=== PATIENT | male | born 1940 | race Caucasian/White ===

== ENCOUNTER 2021-02-26 11:45 | Outpatient (CLI) | payer MEDICARE, BC ==
[2021-02-26 15:38] LABS: BASOPHILS % (AUTO) 0.5 %; EOSINOPHILS # (AUTO) 0.1 10^3/uL (0.0-0.7); EOSINOPHILS % (AUTO) 1.8 %; HCT - HEMATOCRIT 29.4 % (42.0-52.0); HGB - HEMOGLOBIN 9.2 g/dL (14.0-18.0); LYMPHOCYTES # (AUTO) 1.2 10^3/uL (1.5-3.5); LYMPHOCYTES % (AUTO) 29.8 %; MEAN CORPUSCULAR HEMOGLOBIN 24.8 pg (27.0-31.0); MEAN CORPUSCULAR HGB CONC 31.3 g/dL (32.0-36.0); MEAN CORPUSCULAR VOLUME 79.2 fL (80.0-94.0); MONOCYTES # (AUTO) 0.4 10^3/uL (0.0-1.0); MONOCYTES % (AUTO) 10.3 %; NEUTROPHILS # (AUTO) 2.3 10^3/uL (1.5-6.6); NEUTROPHILS % (AUTO) 56.8 %; PLT - PLATELET COUNT 159 10^3/uL (130-450); RED BLOOD COUNT 3.71 10^6/uL (4.70-6.10); RED CELL DISTRIBUTION WIDTH 16.1 % (12.0-15.0)
[2021-02-26 15:51] LABS: ALBUMIN/GLOBULIN RATIO 1.1 (1.0-2.2); BILIRUBIN,TOTAL 0.3 mg/dL (0.2-1.0); CALCIUM 9.5 mg/dL (8.5-10.3); CREATININE 1.7 mg/dL (0.6-1.2); MAGNESIUM 1.8 mg/dL (1.7-2.8); POTASSIUM 4.3 mmol/L (3.5-5.0); TOTAL PROTEIN 7.5 g/dL (6.7-8.2)
[2021-02-26 16:06] LABS: THYROID STIMULATING HORMONE 2.46 uIU/mL (0.34-5.60)
== END 2021-02-26 11:46 | disposition home or self-care (01) ==
LOC: LAB.S 11:45
PROVIDERS: ATTEND Physician Assistant Medical
DX: D50.9 Iron deficiency anemia, unspecified (principal); R29.898 Other symptoms and signs involving the musculoskeletal system; R53.83 Other fatigue
CPT/HCPCS: 36415; 80053; 83735; 84443; 85025

== ENCOUNTER 2021-03-02 08:00 | Outpatient (CLI) | payer MEDICARE, BC ==
[2021-03-02 14:53] LABS: BASOPHILS % (AUTO) 0.4 %; EOSINOPHILS # (AUTO) 0.1 10^3/uL (0.0-0.7); EOSINOPHILS % (AUTO) 1.2 %; HCT - HEMATOCRIT 28.5 % (42.0-52.0); LYMPHOCYTES % (AUTO) 19.4 %; MEAN CORPUSCULAR HEMOGLOBIN 24.7 pg (27.0-31.0); MEAN CORPUSCULAR HGB CONC 31.6 g/dL (32.0-36.0); MEAN CORPUSCULAR VOLUME 78.3 fL (80.0-94.0); MEAN PLATELET VOLUME 11.5 fL (7.4-11.4); MONOCYTES # (AUTO) 0.8 10^3/uL (0.0-1.0); MONOCYTES % (AUTO) 15.1 %; NEUTROPHILS # (AUTO) 3.2 10^3/uL (1.5-6.6); NEUTROPHILS % (AUTO) 63.1 %; PLT - PLATELET COUNT 155 10^3/uL (130-450); RED BLOOD COUNT 3.64 10^6/uL (4.70-6.10); WHITE BLOOD COUNT 5.1 x10^3/uL (4.8-10.8)
== END 2021-03-02 23:59 | disposition home or self-care (01) ==
LOC: LAB.S 08:00
PROVIDERS: ATTEND Emergency Medicine
DX: R53.83 Other fatigue (principal); R29.898 Other symptoms and signs involving the musculoskeletal system; D50.9 Iron deficiency anemia, unspecified; Z79.01 Long term (current) use of anticoagulants
CPT/HCPCS: 36415; 85025

== ENCOUNTER 2021-04-05 09:06 | Outpatient (CLI) | payer MEDICARE, BC ==
[2021-04-05 14:45] LABS: BASOPHILS % (AUTO) 0.6 %; EOSINOPHILS # (AUTO) 0.1 10^3/uL (0.0-0.7); EOSINOPHILS % (AUTO) 2.1 %; HCT - HEMATOCRIT 35.3 % (42.0-52.0); HGB - HEMOGLOBIN 10.7 g/dL (14.0-18.0); LYMPHOCYTES # (AUTO) 1.4 10^3/uL (1.5-3.5); LYMPHOCYTES % (AUTO) 26.7 %; MEAN CORPUSCULAR HEMOGLOBIN 24.2 pg (27.0-31.0); MEAN CORPUSCULAR HGB CONC 30.3 g/dL (32.0-36.0); MEAN CORPUSCULAR VOLUME 79.7 fL (80.0-94.0); MONOCYTES # (AUTO) 0.4 10^3/uL (0.0-1.0); MONOCYTES % (AUTO) 7.7 %; NEUTROPHILS # (AUTO) 3.2 10^3/uL (1.5-6.6); NEUTROPHILS % (AUTO) 62.1 %; PLT - PLATELET COUNT 155 10^3/uL (130-450); RED BLOOD COUNT 4.43 10^6/uL (4.70-6.10); RED CELL DISTRIBUTION WIDTH 15.7 % (12.0-15.0); WHITE BLOOD COUNT 5.2 x10^3/uL (4.8-10.8)
[2021-04-05 15:15] LABS: CHOL/HDL RATIO 4.3 (<5.0); CHOLESTEROL 162 mg/dL; HDL CHOLESTEROL 38 mg/dL; LDL CHOLESTEROL,CALCULATED 57 mg/dL; LDL/HDL RATIO 1.5 (<3.6); TRIGLYCERIDES 334 mg/dL; VLDL CHOLESTEROL 67 mg/dL
[2021-04-05 19:54] LABS: ESTIMATED AVERAGE GLUCOSE 169 mg/dL (70-100); HEMOGLOBIN A1c% 7.5 % (4.27-6.07)
== END 2021-04-05 09:07 | disposition home or self-care (01) ==
LOC: LAB.S 09:06
PROVIDERS: ATTEND Internal Medicine
DX: I10 Essential (primary) hypertension (principal); D64.9 Anemia, unspecified; E11.9 Type 2 diabetes mellitus without complications; Z12.5 Encounter for screening for malignant neoplasm of prostate
CPT/HCPCS: 36415; 80061; 82728; 83036; 85025; 86335; G0103; 81599; 83721; 84153

== ENCOUNTER 2021-06-18 12:07 | Outpatient (CLI) | payer MEDICARE, BC | END 2021-06-18 12:08 | disposition short-term general hospital (02) | LOC: EMS 12:07 | DX: S79.912A Unspecified injury of left hip, initial encounter (principal); R53.1 Weakness; W07.XXXA Fall from chair, initial encounter; Y92.009 Unspecified place in unspecified non-institutional (private) residence as the place of occurrence of the external cause | CPT/HCPCS: A0425; A0429 ==

== ENCOUNTER 2021-08-15 09:51 | Outpatient (CLI) | payer MEDICARE, BC | END 2021-08-15 09:52 | disposition EMS.NT | LOC: EMS 09:51 | DX: R44.8 Other symptoms and signs involving general sensations and perceptions (principal) ==

== ENCOUNTER 2021-08-15 17:43 | Outpatient (CLI) | payer MEDICARE, BC | END 2021-08-15 17:44 | disposition EMS.NT | LOC: EMS 17:43 | DX: R50.9 Fever, unspecified (principal); R53.1 Weakness ==

== ENCOUNTER 2021-08-15 18:49 | Emergency (ER) | payer MEDICARE, BC ==
[2021-08-15 19:19] LABS: BILIRUBIN,URINE NEGATIVE (NEGATIVE); GLUCOSE, URINE (UA) NEGATIVE (NEGATIVE); KETONES,URINE (UA) NEGATIVE (NEGATIVE); LEUKOCYTE ESTERASE, URINE NEGATIVE (NEGATIVE); NITRITE,URINE NEGATIVE (NEGATIVE); OCCULT BLOOD,URINE SMALL (NEGATIVE); PROTEIN,URINE 100 mg/dL (NEGATIVE); UROBILINOGEN,URINE 0.2 (NORMAL) E.U./dL (NORMAL)
[2021-08-15 19:23] LABS: CLARITY,URINE CLEAR (CLEAR)
[2021-08-15 19:26] LABS: BACTERIA,URINE Many /HPF (None Seen); SQUAMOUS EPITHELIAL CELL,UR NONE SEEN (<= Few); WBC,URINE >25 /HPF (0-3)
--- NOTE | 2021-08-15 19:33 | ED Physician Documentation ---
History of Present Illness - Stated complaint Stated Complaint: WEAKNESS - Chief complaint Chief Complaint: General - History obtained from History obtained from: Patient - History of Present Illness Timing: Today Pain level max: 8 Pain level now: 3 - Additonal information Additional information: 81-year-old male brought in by his for left leg pain today. EMS was called to the house to help move him. She states that they said he had a fever at that time. He had a left hip surgery about 2 months ago. Apparently there was concern for potential DVT. He states currently he is not having pain. No chest pain or difficulty breathing. No cough. No congestion. Review of Systems Unable to obtain: Dementia Constitutional: reports: Fever Respiratory: denies: Cough GI: denies: Abdominal Pain, Nausea, Vomiting, Diarrhea Skin: denies: Rash Musculoskeletal: denies: Neck pain, Back pain Neurologic: denies: Headache PD PAST MEDICAL HISTORY - Past Medical History Past Medical History: Yes Cardiovascular: Hypertension, High cholesterol, [place], Atrial fibrillation Neuro: Dementia Endocrine/Autoimmune: Type 2 diabetes : Benign prostate hypertrophy Musculoskeletal: Osteoarthritis - Past Surgical History Past Surgical History: Yes Ortho: Hip replacement, Knee replacement - Present Medications Home Medications: Ambulatory Orders Medication Instructions Recorded Confirmed cephALEXin [Keflex] 500 mg PO Q6H #28 cap 08/15/21 - Allergies Allergies/Adverse Reactions: Allergies Allergy/AdvReac Type Severity Reaction Status Date / Time No Known Drug Allergies Allergy Verified 08/15/21 19:01 - Social History Does the pt smoke?: No Smoking Status: Never smoker Does the pt drink ETOH?: No Does the pt have substance abuse?: No - Immunizations Immunizations are current?: Yes PD ED PE NORMAL - Vitals Vital signs reviewed: Yes - General General: No acute distress, Other (Alert, pleasant) - HEENT HEENT: PERRL, Moist mucous membranes - Neck Neck: Supple, no meningeal sign - Cardiac Cardiac: RRR, Strong equal pulses - Respiratory Respiratory: No respiratory distress, Clear bilaterally - Abdomen Abdomen: Soft, Non tender, Non distended - Back Back: No CVA TTP, No spinal TTP - Derm Derm: Warm and dry - Extremities Extremities: No deformity, Normal ROM s pain, No edema, No calf tenderness / cord, Other (Mild swelling of the left lower extremity. No calf tenderness or cord. Full range of motion without pain.) - Neuro Neuro: range mounter 2-12 intact, No motor deficit, No sensory deficit - Psych Psych: Normal mood, Normal affect Results - Vitals Vitals: Vital Signs - 24 hr 08/15/21 08/15/21 08/15/21 18:57 19:01 20:25 Temperature 37.8 C 37.8 C Heart Rate 71 71 72 Respiratory 18 18 23 Rate Blood Pressure 148/63 H 148/63 H 141/68 H O2 Saturation 96 96 98 08/15/21 21:01 Temperature 37.7 C Heart Rate 70 Respiratory 19 Rate Blood Pressure 142/69 H O2 Saturation 98 Oxygen O2 Source Room air - Labs Labs: Laboratory Tests 08/15/21 08/15/21 08/15/21 19:13 19:20 19:20 WBC 11.0 H RBC 3.61 L Hgb 10.1 L Hct 30.6 L MCV 84.8 MCH 28.0 MCHC 33.0 RDW 15.2 H Plt Count 234 MPV 9.9 Neut # (Auto) 8.0 H Lymph # (Auto) 1.4 L [place] # (Auto) 1.3 H Eos # (Auto) 0.0 Baso # (Auto) 0.0 Absolute Nucleated RBC 0.00 Nucleated RBC % 0.0 PT 16.2 H INR 1.5 H APTT 34.0 H Sodium Potassium Chloride Carbon Dioxide Anion Gap BUN Creatinine Estimated GFR (MDRD) Glucose Lactic Acid Calcium Total Bilirubin AST ALT Alkaline Phosphatase Total Protein Albumin Globulin Albumin/Globulin Ratio Lipase Urine Color YELLOW Urine Clarity CLEAR Urine pH 6.0 Ur Specific [place] 1.015 Urine Protein 100 H Urine Glucose (UA) NEGATIVE Urine Ketones NEGATIVE Urine Occult Blood SMALL H Urine Nitrite NEGATIVE Urine Bilirubin NEGATIVE Urine Urobilinogen 0.2 (NORMAL) Ur Leukocyte Esterase NEGATIVE Urine RBC 6-10 H Urine WBC >25 H Ur Squamous Epith Cells NONE SEEN Urine Bacteria Many H Ur Microscopic Review INDICATED Urine Culture Comments INDICATED 08/15/21 08/15/21 19:20 19:25 WBC RBC Hgb Hct MCV MCH MCHC RDW Plt Count MPV Neut # (Auto) Lymph # (Auto) [place] # (Auto) Eos # (Auto) Baso # (Auto) Absolute Nucleated RBC Nucleated RBC % PT INR APTT Sodium 131 L Potassium 3.6 Chloride 93 L Carbon Dioxide 26 Anion Gap 12.0 BUN 35 H Creatinine 1.4 H Estimated GFR (MDRD) 49 L Glucose 126 H Lactic Acid 0.7 Calcium 9.5 Total Bilirubin 0.7 AST 13 ALT 14 Alkaline Phosphatase 113 Total Protein 8.1 Albumin 4.2 Globulin 3.9 Albumin/Globulin Ratio 1.1 Lipase 34 Urine Color Urine Clarity Urine pH Ur Specific [place] Urine Protein Urine Glucose (UA) Urine Ketones Urine Occult Blood Urine Nitrite Urine Bilirubin Urine Urobilinogen Ur Leukocyte Esterase Urine RBC Urine WBC Ur Squamous Epith Cells Urine Bacteria Ur Microscopic Review Urine Culture Comments - Rads (name of study) cxr Radiology: Final report received, EMP read contemporaneously, See rad report (No acute cardiopulmonary abnormality. ) L femur xray Radiology: Final report received, EMP read contemporaneously, See rad report (No acute abnormality) duplex US LLE Radiology: Final report received, EMP read contemporaneously, See rad report (No DVT. Ely's cyst present) PD MEDICAL DECISION MAKING - ED course Complexity details: reviewed results, re-evaluated patient, considered differential, d/w patient, d/w family ED course: 81-year-old male found to have a UTI. Given Rocephin for this. No leg pain here. No DVT on ultrasound. No acute findings on x-ray. No evidence of pneumonia on chest x-ray. We will have him follow-up with his doctor for further care. Patient is ambulating well with a walker here. Family counseled regarding signs and symptoms for which I believe and urgent re-evaluation would be necessary. Family with good understanding of and agreement to plan and is comfortable going home at this time This document was made in part using voice recognition software. While efforts are made to proofread this document, sound alike and grammatical errors may o ccur. Departure - Departure Disposition: 01 Home, Self Care Clinical Impression: UTI (urinary tract infection) Qualifiers: Urinary tract infection type: acute cystitis Hematuria presence: without hematuria Qualified Code(s): N30.00 - Acute cystitis without hematuria Leg pain Qualifiers: Laterality: left Qualified Code(s): M79.605 - Pain in left leg Condition: Good Instructions: ED Acute Pain UKO, ED UTI Cystitis Male Follow-Up: Jonathan Katz MD [Primary Care Provider] - Within 1 week Prescriptions: cephALEXin [Keflex] 500 mg PO Q6H #28 cap Comments: Your prescriptions were sent to [facility]. Please follow-up with your doctor for further care. Return if you worsen. There is no evidence of blood clot on ultrasound tonight. The x-ray does not show any acute abnormalities. Take all antibiotics until gone. Discharge Date/Time: 08/15/21 21:16
[2021-08-15 19:34] LABS: BASOPHILS % (AUTO) 0.3 %; EOSINOPHILS % (AUTO) 0.1 %; HCT - HEMATOCRIT 30.6 % (42.0-52.0); HGB - HEMOGLOBIN 10.1 g/dL (14.0-18.0); LYMPHOCYTES # (AUTO) 1.4 10^3/uL (1.5-3.5); MEAN CORPUSCULAR VOLUME 84.8 fL (80.0-94.0); MEAN PLATELET VOLUME 9.9 fL (7.4-11.4); MONOCYTES # (AUTO) 1.3 10^3/uL (0.0-1.0); MONOCYTES % (AUTO) 12.1 %; NEUTROPHILS % (AUTO) 73.2 %; PLT - PLATELET COUNT 234 10^3/uL (130-450); RED BLOOD COUNT 3.61 10^6/uL (4.70-6.10); RED CELL DISTRIBUTION WIDTH 15.2 % (12.0-15.0)
[2021-08-15 19:39] LABS: INR 1.5 (0.8-1.2); PT - PROTHROMBIN TIME 16.2 secs (9.9-12.6)
[2021-08-15 19:43] LABS: ALBUMIN 4.2 g/dL (3.2-5.5); ALBUMIN/GLOBULIN RATIO 1.1 (1.0-2.2); BILIRUBIN,TOTAL 0.7 mg/dL (0.2-1.0); CALCIUM 9.5 mg/dL (8.5-10.3); CREATININE 1.4 mg/dL (0.6-1.2); POTASSIUM 3.6 mmol/L (3.5-5.0); TOTAL PROTEIN 8.1 g/dL (6.7-8.2)
[2021-08-15] MEDS ORDERED: cefTRIAXone 1 GM VIAL IVP STA (20:13)
--- NOTE | 2021-08-15 20:18 | XRAY Report ---
PROCEDURE: Chest 1 View X-Ray INDICATIONS: fever TECHNIQUE: One view of the chest was acquired. COMPARISON: None. FINDINGS: Surgical changes and devices: None. Lungs and pleura: No pleural effusions or pneumothorax. Lungs are clear. Mediastinum: Mediastinal contours appear normal. Heart size is within normal limits. Bones and chest wall: No suspicious bony lesions. Generative change at the shoulders. Overlying sof t tissues appear unremarkable. IMPRESSION: No acute cardiopulmonary abnormality. Reviewed by: Jaison Munoz MD on 08/15/2021 8:17 PM PST Approved by: Jaison Munoz MD on 08/15/2021 8:17 PM PST Station ID: [id number]
--- NOTE | 2021-08-15 20:21 | XRAY Report ---
PROCEDURE: Femur 2V LT INDICATIONS: L Leg pain, 2 months s/p "hip surgery" TECHNIQUE: 4 views of the femur were acquired. COMPARISON: None. FINDINGS: Bones: Left femur intramedullary nia and screw fixation. No acute fractures. No periscrew lucency de monstrated. No dislocation. Mild left hip joint space narrowing. Moderate heterotopic calcification. Mild deformity of the lower one third of the femoral shaft. Degenerative change at the left knee join t. No suspicious bony lesions. Soft tissues: No suspicious soft tissue calcifications or masses. IMPRESSION: No acute osseous abnormality. Expected appearance of the left hip hardware. Reviewed by: Jaison Munoz MD on 08/15/2021 8:19 PM PST Approved by: Jaison Munoz MD on 08/15/2021 8:19 PM PST Station ID: [id number]
[2021-08-15 21:03] VITALS: BP 142/69
--- NOTE | 2021-08-15 21:47 | Ultrasound Report ---
PROCEDURE: Duplex Ext Veins Left INDICATIONS: L Leg pain, 2 months s/p "hip surgery" TECHNIQUE: Real-time imaging, as well as color and pulse Doppler interrogation, were performed of the lower extr emity deep veins from the inguinal ligament to the popliteal fossa. COMPARISON: None. FINDINGS: The deep veins are normally compressible, and free of intraluminal thrombus. Color and pu lse Doppler demonstrate normal phasic intraluminal flow. There is normal augmentation response to di stal compression maneuver. The calf veins are not well visualized. A medial popliteal/Ely's cyst is seen measuring 4.8 x 2.2 x 2.4 cm with internal debris or synovial thickening. IMPRESSION: 1.No sonographic evidence of deep venous thrombosis in the left lower extremity. 2.Medial popliteal Ely's cyst with internal debris or synovial hypertrophy. Reviewed by: Oliver Sarabia MD on 08/15/2021 9:46 PM PST Approved by: Oliver Sarabia MD on 08/15/2021 9:46 PM PST Station ID: [id number]
== END 2021-08-15 21:16 | disposition home or self-care (01) ==
LOC: ED 18:49
DX: N30.00 Acute cystitis without hematuria (principal); M79.605 Pain in left leg; M71.22 Synovial cyst of popliteal space [Baker], left knee; Z96.642 Presence of left artificial hip joint; I10 Essential (primary) hypertension; E11.9 Type 2 diabetes mellitus without complications
CPT/HCPCS: 36415; 80053; 81001; 81003; 83605; 83690; 85025; 85610; 85730; 87040; 87086; 87181; 96374; 99283

== ENCOUNTER 2021-10-11 12:55 | Outpatient (CLI) | payer MEDICARE, BC ==
[2021-10-11 20:07] LABS: BASOPHILS % (AUTO) 0.4 %; EOSINOPHILS # (AUTO) 0.1 10^3/uL (0.0-0.7); EOSINOPHILS % (AUTO) 1.3 %; HGB - HEMOGLOBIN 11.1 g/dL (14.0-18.0); LYMPHOCYTES % (AUTO) 35.7 %; MEAN CORPUSCULAR HEMOGLOBIN 27.8 pg (27.0-31.0); MEAN CORPUSCULAR HGB CONC 32.6 g/dL (32.0-36.0); MEAN CORPUSCULAR VOLUME 85.2 fL (80.0-94.0); MEAN PLATELET VOLUME 11.4 fL (7.4-11.4); MONOCYTES # (AUTO) 0.6 10^3/uL (0.0-1.0); MONOCYTES % (AUTO) 10.5 %; NEUTROPHILS # (AUTO) 2.8 10^3/uL (1.5-6.6); NEUTROPHILS % (AUTO) 50.8 %; PLT - PLATELET COUNT 177 10^3/uL (130-450); RED BLOOD COUNT 3.99 10^6/uL (4.70-6.10); RED CELL DISTRIBUTION WIDTH 14.3 % (12.0-15.0); WHITE BLOOD COUNT 5.6 x10^3/uL (4.8-10.8)
[2021-10-11 20:16] LABS: ALBUMIN 4.2 g/dL (3.2-5.5); ALBUMIN/GLOBULIN RATIO 1.1 (1.0-2.2); BILIRUBIN,TOTAL 0.6 mg/dL (0.2-1.0); CALCIUM 9.6 mg/dL (8.5-10.3); CREATININE 1.2 mg/dL (0.6-1.2); POTASSIUM 3.7 mmol/L (3.5-5.0)
[2021-10-11 20:42] LABS: ESTIMATED AVERAGE GLUCOSE 146 mg/dL (70-100); HEMOGLOBIN A1c% 6.7 % (4.27-6.07)
== END 2021-10-11 12:56 | disposition home or self-care (01) ==
LOC: LAB.S 12:55
PROVIDERS: ATTEND Internal Medicine
DX: E11.9 Type 2 diabetes mellitus without complications (principal); D64.9 Anemia, unspecified
CPT/HCPCS: 36415; 80053; 82728; 83036; 85025

== ENCOUNTER 2022-04-03 08:00 | Outpatient (CLI) | payer MEDICARE, BC ==
[2022-04-03 19:44] LABS: BILIRUBIN,URINE NEGATIVE (NEGATIVE); GLUCOSE, URINE (UA) NEGATIVE (NEGATIVE); KETONES,URINE (UA) NEGATIVE (NEGATIVE); LEUKOCYTE ESTERASE, URINE NEGATIVE (NEGATIVE); NITRITE,URINE NEGATIVE (NEGATIVE); OCCULT BLOOD,URINE TRACE-INTA (NEGATIVE); PH,URINE 5.5 PH (5.0-7.5); PROTEIN,URINE 100 mg/dL (NEGATIVE); UROBILINOGEN,URINE 0.2 (NORMAL) E.U./dL (NORMAL)
[2022-04-03 19:45] LABS: CLARITY,URINE CLEAR (CLEAR)
[2022-04-03 20:03] LABS: BACTERIA,URINE Few /HPF (None Seen); RBC,URINE 0-5 /HPF (0-5); SQUAMOUS EPITHELIAL CELL,UR RARE Squamous (<= Few); WBC,URINE 0-3 /HPF (0-3)
[2022-04-03 20:04] LABS: CASTS, URINE 3-5 Hyaline Casts /LPF
== END 2022-04-03 23:59 | disposition home or self-care (01) ==
LOC: LAB.R 08:00
PROVIDERS: ATTEND Internal Medicine
DX: R39.9 Unspecified symptoms and signs involving the genitourinary system (principal)
CPT/HCPCS: 81001; 87086

== ENCOUNTER 2022-06-05 20:48 | Emergency (ER) | payer MEDICARE, BC ==
--- NOTE | 2022-06-05 21:18 | ED Physician Documentation ---
History of Present Illness - Stated complaint Stated Complaint: DIABETIC ISSUE - Chief complaint Chief Complaint: General - History obtained from History obtained from: Patient - History of Present Illness Timing: How many days ago (2-3) Pain level max: 0 Pain level now: 0 Improved by: nothing - Additonal information Additional information: patient is non-insulin dependent diabetic, takes glipizide for diabetes. Checks blood sugars frequently but lately has not been doing so on a regular basis. He says the last 2-3 days he has noted elevated blood sugars 200s-300s and tonight it was 450. He also notes mild diarrhea x 2 days but otherwise feels well. No recent changes in diet nor medications. Review of Systems Constitutional: reports: Reviewed and negative Cardiac: reports: Reviewed and negative Respiratory: reports: Reviewed and negative GI: reports: Diarrhea. denies: Abdominal Pain, Nausea, Vomiting : denies: Dysuria, Frequency Neurologic: denies: Generalized weakness, Focal weakness, Numbness, Headache PD PAST MEDICAL HISTORY - Past Medical History Cardiovascular: Hypertension, High cholesterol, [place], Atrial fibrillation Neuro: Dementia Endocrine/Autoimmune: Type 2 diabetes : Benign prostate hypertrophy Musculoskeletal: Osteoarthritis - Past Surgical History Past Surgical History: Yes Ortho: Hip replacement, Knee replacement - Present Medications Home Medications: Ambulatory Orders Medication Instructions Recorded Confirmed cephALEXin [Keflex] 500 mg PO Q6H #28 cap 08/15/21 Apixaban [Eliquis] 5 mg PO BID 06/05/22 06/05/22 Atorvastatin Calcium 40 mg PO DAILY 06/05/22 06/05/22 Finasteride [Proscar] 5 mg PO DAILY 06/05/22 06/05/22 Isosorbide Mononitrate [Isosorbide 60 mg PO DAILY 06/05/22 06/05/22 Mononitrate ER] Losartan Potassium [Cozaar] 100 mg PO DAILY 06/05/22 06/05/22 Metoprolol Succinate [Toprol Xl] 200 mg PO DAILY 06/05/22 06/05/22 Tamsulosin [Flomax] 0.4 mg PO DAILY 06/05/22 06/05/22 glipiZIDE [Glipizide ER] 2.5 mg PO DAILY 06/05/22 06/05/22 hydroCHLOROthiazide [Hydrodiuril] 25 mg PO DAILY 06/05/22 06/05/22 - Allergies Allergies/Adverse Reactions: Allergies Allergy/AdvReac Type Severity Reaction Status Date / Time No Known Drug Allergies Allergy Verified 06/05/22 21:07 - Social History Does the pt smoke?: No Smoking Status: Never smoker Does the pt drink ETOH?: No Does the pt have substance abuse?: No - Immunizations Immunizations are current?: Yes PD ED PE NORMAL - Vitals Vital signs reviewed: Yes - General General: Alert and oriented X 3, No acute distress, Well developed/nourished - HEENT HEENT: Moist mucous membranes - Cardiac Cardiac: RRR, No murmur - Respiratory Respiratory: No respiratory distress, Clear bilaterally - Abdomen Abdomen: Normal bowel sounds, Soft, Non tender - Derm Derm: Normal color, Warm and dry Results - Vitals Vitals: Oxygen O2 Source Room air - Labs Labs: Laboratory Tests 06/05/22 06/05/22 06/05/22 21:05 21:43 21:48 WBC 8.5 RBC 3.38 L Hgb 9.3 L Hct 28.3 L MCV 83.7 MCH 27.5 MCHC 32.9 RDW 17.9 H Plt Count 141 MPV 10.6 Neut # (Auto) Not Reportable Lymph # (Auto) Not Reportable [place] # (Auto) Not Reportable Eos # (Auto) Not Reportable Baso # (Auto) Not Reportable Absolute Nucleated RBC Not Reportable Total Counted 100 Band Neuts % (Manual) 3 Abnorm Lymph % (Manual) 0 Metamyelocytes % 5 H Myelocytes % 2 H Nucleated RBC % Not Reportable Neutrophils # (Manual) 6.1 Lymphocytes # (Manual) 0.7 L Monocytes # (Manual) 1.0 Eosinophils # (Manual) 0.1 Basophils # (Manual) 0.0 Differential Comment MANUAL DIFFERENTIAL WBC Morphology NORMAL APPEARANCE Platelet Estimate NORMAL (130-450,000) Platelet Morphology NORMAL APPEARANCE RBC Morph Micro Appear NORMAL APPEARANCE VBG pH VBG pCO2 VBG pO2 VBG HCO3 VBG Total CO2 VBG O2 Saturation VBG Base Excess Sodium Potassium Chloride Carbon Dioxide Anion Gap BUN Creatinine Estimated GFR (MDRD) Glucose POC Whole Bld Glucose 455 H Estimat Average Glucose Hemoglobin A1c % Calcium Total Bilirubin AST ALT Alkaline Phosphatase Total Protein Albumin Globulin Albumin/Globulin Ratio Lipase Urine Color YELLOW Urine Clarity CLEAR Urine pH 5.5 Ur Specific [place] 1.015 Urine Protein 30 H Urine Glucose (UA) >=1000 H Urine Ketones NEGATIVE Urine Occult Blood TRACE-INTA Urine Nitrite NEGATIVE Urine Bilirubin NEGATIVE Urine Urobilinogen 0.2 (NORMAL) Ur Leukocyte Esterase NEGATIVE Urine RBC None Seen Urine WBC 0-3 Ur Squamous Epith Cells RARE Squamous Urine Bacteria None Seen Ur Microscopic Review INDICATED Urine Culture Comments NOT INDICATED Serum Ketones 06/05/22 06/05/22 06/05/22 21:48 21:48 21:48 WBC RBC Hgb Hct MCV MCH MCHC RDW Plt Count MPV Neut # (Auto) Lymph # (Auto) [place] # (Auto) Eos # (Auto) Baso # (Auto) Absolute Nucleated RBC Total Counted Band Neuts % (Manual) Abnorm Lymph % (Manual) Metamyelocytes % Myelocytes % Nucleated RBC % Neutrophils # (Manual) Lymphocytes # (Manual) Monocytes # (Manual) Eosinophils # (Manual) Basophils # (Manual) Differential Comment WBC Morphology Platelet Estimate Platelet Morphology RBC Morph Micro Appear VBG pH 7.341 VBG pCO2 43.4 VBG pO2 49.2 H VBG HCO3 22.9 L VBG Total CO2 24.3 VBG O2 Saturation 84.1 H VBG Base Excess -2.7 L Sodium 128 L Potassium 4.1 Chloride 96 L Carbon Dioxide 23 Anion Gap 9.0 BUN 38 H Creatinine 1.3 H Estimated GFR (MDRD) 53 L Glucose 416 H POC Whole Bld Glucose Estimat Average Glucose 226 H Hemoglobin A1c % 9.5 H Calcium 9.3 Total Bilirubin 0.6 AST 20 ALT 31 Alkaline Phosphatase 79 Total Protein 6.9 Albumin 3.7 Globulin 3.2 Albumin/Globulin Ratio 1.2 Lipase 57 H Urine Color Urine Clarity Urine pH Ur Specific [place] Urine Protein Urine Glucose (UA) Urine Ketones Urine Occult Blood Urine Nitrite Urine Bilirubin Urine Urobilinogen Ur Leukocyte Esterase Urine RBC Urine WBC Ur Squamous Epith Cells Urine Bacteria Ur Microscopic Review Urine Culture Comments Serum Ketones NEGATIVE 06/05/22 23:23 WBC RBC Hgb Hct MCV MCH MCHC RDW Plt Count MPV Neut # (Auto) Lymph # (Auto) [place] # (Auto) Eos # (Auto) Baso # (Auto) Absolute Nucleated RBC Total Counted Band Neuts % (Manual) Abnorm Lymph % (Manual) Metamyelocytes % Myelocytes % Nucleated RBC % Neutrophils # (Manual) Lymphocytes # (Manual) Monocytes # (Manual) Eosinophils # (Manual) Basophils # (Manual) Differential Comment WBC Morphology Platelet Estimate Platelet Morphology RBC Morph Micro Appear VBG pH VBG pCO2 VBG pO2 VBG HCO3 VBG Total CO2 VBG O2 Saturation VBG Base Excess Sodium Potassium Chloride Carbon Dioxide Anion Gap BUN Creatinine Estimated GFR (MDRD) Glucose POC Whole Bld Glucose 234 H Estimat Average Glucose Hemoglobin A1c % Calcium Total Bilirubin AST ALT Alkaline Phosphatase Total Protein Albumin Globulin Albumin/Globulin Ratio Lipase Urine Color Urine Clarity Urine pH Ur Specific [place] Urine Protein Urine Glucose (UA) Urine Ketones Urine Occult Blood Urine Nitrite Urine Bilirubin Urine Urobilinogen Ur Leukocyte Esterase Urine RBC Urine WBC Ur Squamous Epith Cells Urine Bacteria Ur Microscopic Review Urine Culture Comments Serum Ketones PD MEDICAL DECISION MAKING - ED course Complexity details: reviewed results, re-evaluated patient, considered differential, d/w patient, d/w family ED course: Serum glucose 416 on initial draw, down to 234 after one liter IV NS and 6 units regular insulin IV. Serum ketones negative. Incidental note of mild anemia (9.3 hemoglobin) comparable to previous results. No further treatment at this time, given that he is asymptomatic relative to the hyperglycemia. Hgb A1C ordered at time of discharge , can be reviewed by PMD in follow up. Return precautions discussed Departure - Departure Disposition: Home, Self Care Clinical Impression: Hyperglycemia Condition: Good Instructions: Diabetes Type 2 Coping, Diabetes Healthy Meals, Diabetes Carbs, Diabetes Eating Out, ED Hyperglycemia Diabetic Follow-Up: Mariely Feliciano MD [Primary Care Provider] - Comments: Follow up with your primary care provider for reevaluation, ideally within the next week. If your blood sugars are not controlled with your current medication, adjustments can be made by your provider. I have ordered a test called hemoglobin A1c, which can help determine if adjustments are needed in the regimen for blood sugar control. This result is pending at time of discharge; your doctor can get the result when you follow up with them. You had mild abnormalities as discussed, such as mildly low red blood cell levels and mildly elevated kidney function tests; these are not new findings compared to previous results I have on our records. Discharge Date/Time: 06/06/22 00:23
[2022-06-05] MEDS ORDERED: SODIUM CHLORIDE 0.9% 1,000 ML IV STA (21:19)
[2022-06-05 22:05] LABS: BASOPHILS % (AUTO) 0.4 %; EOSINOPHILS % (AUTO) 0.1 %; HCT - HEMATOCRIT 28.3 % (42.0-52.0); HGB - HEMOGLOBIN 9.3 g/dL (14.0-18.0); MEAN CORPUSCULAR HEMOGLOBIN 27.5 pg (27.0-31.0); MEAN CORPUSCULAR HGB CONC 32.9 g/dL (32.0-36.0); MEAN CORPUSCULAR VOLUME 83.7 fL (80.0-94.0); MEAN PLATELET VOLUME 10.6 fL (7.4-11.4); MONOCYTES % (AUTO) 12.2 %; NEUTROPHILS % (AUTO) 68.4 %; PLT - PLATELET COUNT 141 10^3/uL (130-450); RED BLOOD COUNT 3.38 10^6/uL (4.70-6.10); RED CELL DISTRIBUTION WIDTH 17.9 % (12.0-15.0); WHITE BLOOD COUNT 8.5 x10^3/uL (4.8-10.8)
[2022-06-05 22:06] LABS: BILIRUBIN,URINE NEGATIVE (NEGATIVE); GLUCOSE, URINE (UA) >=1000 mg/dL (NEGATIVE); KETONES,URINE (UA) NEGATIVE (NEGATIVE); LEUKOCYTE ESTERASE, URINE NEGATIVE (NEGATIVE); NITRITE,URINE NEGATIVE (NEGATIVE); OCCULT BLOOD,URINE TRACE-INTA (NEGATIVE); PH,URINE 5.5 PH (5.0-7.5); PROTEIN,URINE 30 mg/dL (NEGATIVE); UROBILINOGEN,URINE 0.2 (NORMAL) E.U./dL (NORMAL)
[2022-06-05 22:07] LABS: ABNORMAL LYMPHS % (MANUAL) 0 %
[2022-06-05 22:07] LABS: CLARITY,URINE CLEAR (CLEAR)
[2022-06-05 22:11] LABS: VBG PCO2 43.4 mmHg (41-51); VBG PH 7.341 (7.31-7.41)
[2022-06-05 22:12] LABS: VBG BASE EXCESS -2.7 mmol/L (-2 - +2); VBG HCO3 22.9 mmol/L (23-28); VBG OXYGEN SATURATION 84.1 % (60-80); VBG PO2 49.2 mmHg (25-47); VBG TOTAL CO2 24.3 mmol/L (24-29)
[2022-06-05 22:13] LABS: KETONES, SERUM (ACETEST) NEGATIVE (NEGATIVE)
[2022-06-05 22:18] LABS: BACTERIA,URINE None Seen /HPF (None Seen); RBC,URINE None Seen /HPF (0-5); SQUAMOUS EPITHELIAL CELL,UR RARE Squamous (<= Few); WBC,URINE 0-3 /HPF (0-3)
[2022-06-05 22:20] LABS: ALBUMIN 3.7 g/dL (3.2-5.5); ALBUMIN/GLOBULIN RATIO 1.2 (1.0-2.2); ALKALINE PHOSPHATASE 79 IU/L (42-121); ALT ALANINE AMINOTRANSFERASE 31 IU/L (10-60); AST ASPARTATE AMINOTRANSFERASE 20 IU/L (10-42); BILIRUBIN,TOTAL 0.6 mg/dL (0.2-1.0); CALCIUM 9.3 mg/dL (8.5-10.3); CARBON DIOXIDE - CO2 23 mmol/L (21-32); CHLORIDE 96 mmol/L (101-111); CREATININE 1.3 mg/dL (0.6-1.2); GFR - MDRD 53 (>89); GLUCOSE 416 mg/dL (70-100); LIPASE 57 U/L (22-51); POTASSIUM 4.1 mmol/L (3.5-5.0); SODIUM 128 mmol/L (135-145); TOTAL PROTEIN 6.9 g/dL (6.7-8.2)
[2022-06-05 22:27] LABS: BUN - BLOOD UREA NITROGEN 38 mg/dL (6-20)
[2022-06-05] MEDS ORDERED: INSULIN REGULAR HUMAN 100 UNIT/1 ML 10 ML MDV IVP STA (22:28)
[2022-06-05 22:32] LABS: BAND NEUTROPHILS % (MANUAL) 3 %; DIFFERENTIAL COMMENT MANUAL DIFFERENTIAL; EOSINOPHILS # (MANUAL) 0.1 10^3/uL (0-0.7); LYMPHOCYTES # (MANUAL) 0.7 10^3/uL (1.5-3.5); LYMPHOCYTES % (MANUAL) 8 %; METAMYELOCYTES % (MANUAL) 5 %; MYELOCYTES % (MANUAL) 2 %; NEUTROPHILS # (MANUAL) 6.1 10^3/uL (1.5-6.6); PLATELET ESTIMATE, MANUAL NORMAL (130-450,000) (NORMAL); PLATELET MORPHOLOGY NORMAL APPEARANCE (NORMAL); RBC MORPHOLOGY (MULTIPLE) NORMAL APPEARANCE (NORMAL); WBC MORPHOLOGY (MULTIPLE) NORMAL APPEARANCE (NORMAL)
[2022-06-06 00:23] VITALS: BP 133/72
[2022-06-06 16:34] LABS: ESTIMATED AVERAGE GLUCOSE 226 mg/dL (70-100); HEMOGLOBIN A1c% 9.5 % (4.27-6.07)
== END 2022-06-06 00:23 | disposition home or self-care (01) ==
LOC: ED 20:48
DX: E11.65 Type 2 diabetes mellitus with hyperglycemia (principal); Z79.4 Long term (current) use of insulin; I10 Essential (primary) hypertension; I48.91 Unspecified atrial fibrillation; Z79.01 Long term (current) use of anticoagulants
CPT/HCPCS: 36415; 80053; 81001; 82009; 82803; 83036; 83690; 85025; 96360; 99283; 99284; J1815; 81003; 87086

== ENCOUNTER 2022-08-07 08:00 | Outpatient (CLI) | payer MEDICARE, BC ==
[2022-08-07 16:30] LABS: CALCIUM 9.7 mg/dL (8.5-10.3); CREATININE 1.4 mg/dL (0.6-1.2); POTASSIUM 3.7 mmol/L (3.5-5.0)
[2022-08-07 20:59] LABS: ESTIMATED AVERAGE GLUCOSE 189 mg/dL (70-100); HEMOGLOBIN A1c% 8.2 % (4.27-6.07)
== END 2022-08-07 23:59 | disposition home or self-care (01) ==
LOC: LAB.R 08:00
PROVIDERS: ATTEND Internal Medicine
DX: E11.9 Type 2 diabetes mellitus without complications (principal); H91.90 Unspecified hearing loss, unspecified ear; R32 Unspecified urinary incontinence
CPT/HCPCS: 80048; 83036

== ENCOUNTER 2022-10-11 08:08 | Outpatient (CLI) | payer MEDICARE, BC ==
[2022-10-11 15:36] LABS: ESTIMATED AVERAGE GLUCOSE 163 mg/dL (70-100); HEMOGLOBIN A1c% 7.3 % (4.27-6.07)
[2022-10-11 16:17] LABS: CREATININE,URINE 91.2 mg/dL; MICROALBUM/CREATININE RATIO,UR 267.5 ug/mg (<30.0); MICROALBUMIN,URINE 24.4 mg/dL (0-300.0)
[2022-10-11 16:20] LABS: BUN - BLOOD UREA NITROGEN 42 mg/dL (6-20); CARBON DIOXIDE - CO2 29 mmol/L (21-32); CHLORIDE 104 mmol/L (101-111); CHOL/HDL RATIO 4.5 (<5.0); CHOLESTEROL 172 mg/dL; CREATININE 1.4 mg/dL (0.6-1.2); GFR - MDRD 48 (>89); GLUCOSE 132 mg/dL (70-100); HDL CHOLESTEROL 38 mg/dL; LDL CHOLESTEROL,CALCULATED 95 mg/dL; LDL/HDL RATIO 2.5 (<3.6); SODIUM 140 mmol/L (135-145); TRIGLYCERIDES 196 mg/dL; VLDL CHOLESTEROL 39 mg/dL
== END 2022-10-11 08:09 | disposition home or self-care (01) ==
LOC: LAB.S 08:08
PROVIDERS: ATTEND Nurse Practitioner
DX: E11.65 Type 2 diabetes mellitus with hyperglycemia (principal); E78.2 Mixed hyperlipidemia
CPT/HCPCS: 36415; 80048; 80061; 82043; 82570; 83036; 83721

== ENCOUNTER 2022-10-12 11:03 | Outpatient (CLI) | payer MEDICARE, BC ==
--- NOTE | 2022-10-12 12:09 | XRAY Report ---
PROCEDURE: Femur 2V LT INDICATIONS: LEFT THIGH PAIN TECHNIQUE: 4 views of the femur were acquired. COMPARISON: 08/15/2021. FINDINGS: Bones: Post-ORIF changes are noted in left proximal femur and femoral neck. There is a healed intertr ochanteric fracture of left proximal femur. Healed distal femoral shaft oblique fracture is also seen . No acute fracture or dislocation. No gross hardware loosening or failure. Moderate left hip joint o steoarthritic changes are seen. No evidence of avascular necrosis of femoral head. Moderate tricompar tmental osteoarthritis in left knee is also noted. Soft tissues: No suspicious soft tissue calcifications or masses. IMPRESSION: 1. Prior ORIF of left proximal femoral shaft. Healed left intertrochanteric and distal femoral shaft fractures with chronic-appearing deformity. No acute fracture or dislocation. No gross hardware loose anthony or failure. 2. Moderate to severe left hip and left knee joint osteoarthritis. No evidence of avascular necrosis. Reviewed by: Luis Manuel Zhang MD on 10/12/2022 12:08 PM PST Approved by: Luis Manuel Zhang MD on 10/12/2022 12:08 PM PST Station ID: [id number]
== END 2022-10-12 11:04 | disposition home or self-care (01) ==
LOC: DI.S 11:03
PROVIDERS: ATTEND Physician Assistant
DX: M17.12 Unilateral primary osteoarthritis, left knee (principal); M16.12 Unilateral primary osteoarthritis, left hip

== ENCOUNTER 2022-10-17 11:39 | Outpatient (CLI) | payer MEDICARE, BC ==
[2022-10-17] MEDS ORDERED: iohexoL-300 100 ML VIAL ONE (12:07)
[2022-10-17 12:18] LABS: CREATININE 1.3 mg/dL (0.6-1.2)
[2022-10-17] MEDS ORDERED: iohexoL-300 100 ML VIAL IVP ONE (12:39)
--- NOTE | 2022-10-18 10:25 | CT Report ---
PROCEDURE: IVP INDICATIONS: HEMTURIA CONTRAST: 140ml Omnipaque TECHNIQUE: After the administration of intravenous contrast, 5 mm thick sections acquired from the diaphragms to the symphysis. 5 mm thick coronal and sagittal reformats were acquired. For radiation dose reducti on, the following was used: automated exposure control, adjustment of mA and/or kV according to jin ent size. COMPARISON: None. FINDINGS: Image quality: Excellent. Lung bases: There is a 6 mm nodule in the right lower lobe. Heart size is normal. Moderate-12 and la rge sized hernia. Urinary system: Both kidneys are normal in size and enhancement. Calcific densities in the renal hil a bilaterally are compatible with vascular calcification. No renal stones or hydronephrosis. Contrast -filled renal calyces are normal in morphology. Small low-density cortical nodules are present, like ly cysts. Contrast filled portions of both ureters are normal in caliber. Bladder wall thickness is normal. Solid organs: Liver and spleen are normal in size and enhancement. Gallbladder contains a large joseph cified gallstone. Biliary system is non dilated. Pancreas enhances normally. No adrenal nodules. Peritoneum and bowel: Bowel loops demonstrate normal wall thickness and caliber. There are numerous colonic diverticula. No acute diverticulitis. No free fluid or air. Nodes and vessels: No retroperitoneal or mesenteric adenopathy by size criteria. Aorta and inferior vena cava are normal in size. Moderate atherosclerosis. Abdominal wall: There is a small fat-containing umbilical hernia. Pelvis: No pathologic free pelvic fluid. No inguinal adenopathy. Small fat-containing inguinal her nias are noted. Bones: There is is cortication in the left effusion (series 4 image 85). No vertebral body compressi on fractures. Left hip fracture with internal fixation IMPRESSION: 1. A cause for hematuria is not definitively identified on CT. 2. No renal stone or hydronephrosis. 3. Small low-density cortical nodules are present bilaterally, most likely renal cysts. No solid celestine l masses. 4. Cholelithiasis. 5. Diverticulosis without diverticulitis. 6. A 6 mm nodule in the right lower lobe. Please see enclosed follow-up recommendation. 7. A sclerotic lesion in the left ischium. If there is clinical suspicion for neoplasm such as metast atic disease, a whole-body bone scan is recommended for follow-up. Fleischner Society criteria for SOLID lung nodule followup. Nodule size (mm)Low-risk patientHigh-risk patient "d4No follow-up neededFollow-up at 12 mo; if no change, no further follow-up >[id number] CT at 12 mo; if no change, no further follow-up needed.Initial follow-up CT at 6-12 mo, then 18-24 mo if no change. >6-8Initial follow-up CT at 6-12 mo, then 18-24 mo if no change. Initial follow-up CT at 3-6 mo, then 9-12 mo and 24 mo if no change. >8Follow-up CT at 3, 9, 24 mo. Or PET and/or biopsy.Same as for low-risk pts. Reviewed by: Elizabeth Farnsworth MD on 10/18/2022 9:24 AM [facility] Approved by: Elizabeth Farnsworth MD on 10/18/2022 9:24 AM [facility] Station ID: [id number]
== END 2022-10-17 11:40 | disposition home or self-care (01) ==
LOC: LAB 11:39
PROVIDERS: ATTEND Urology
DX: R31.29 Other microscopic hematuria (principal); K80.20 Calculus of gallbladder without cholecystitis without obstruction; K57.30 Diverticulosis of large intestine without perforation or abscess without bleeding; R91.1 Solitary pulmonary nodule; R93.7 Abnormal findings on diagnostic imaging of other parts of musculoskeletal system
CPT/HCPCS: 36415; 74178; 82565; 84520; Q9967

== ENCOUNTER 2022-12-13 19:36 | Outpatient (CLI) | payer MEDICARE, BC | END 2022-12-13 23:59 | disposition EMS.NT | LOC: EMS 19:36 | DX: M25.512 Pain in left shoulder (principal); W01.0XXA Fall on same level from slipping, tripping and stumbling without subsequent striking against object, initial encounter; Y92.009 Unspecified place in unspecified non-institutional (private) residence as the place of occurrence of the external cause ==

== ENCOUNTER 2023-01-02 15:55 | Outpatient (CLI) | payer MEDICARE, BC ==
--- NOTE | 2023-01-03 07:08 | CT Report ---
PROCEDURE: HEAD WO INDICATIONS: MEMORY LOSS,PORT CONCUSSION SYNDROME,FALL TECHNIQUE: Noncontrast 4.5 mm thick angled axial sections acquired from the foramen magnum to the vertex. For r adiation dose reduction, the following was used: automated exposure control, adjustment of mA and/or kV according to patient size. COMPARISON: None. FINDINGS: Image quality: Excellent. CSF spaces: Basal cisterns are patent. No extra-axial fluid collections. Ventricles are normal in size and shape. Brain: No midline shift. No intracranial masses or hemorrhage. Ward-white matter interface is norm al. Age-related volume loss and severe small vessel ischemic change. Skull and face: Calvarium and visualized facial bones are intact, without suspicious lesions. Sinuses: Visualized sinuses and mastoids are clear. IMPRESSION: Age-related volume loss and severe small vessel ischemic change. No evidence acute intracranial patho logy. Reviewed by: Derian Holliday MD on 01/02/2023 4:32 PM PDT Approved by: Derian Holliday MD on 01/02/2023 4:32 PM PDT Station ID: [id number]
== END 2023-01-02 15:56 | disposition home or self-care (01) ==
LOC: DI 15:55
PROVIDERS: ATTEND Internal Medicine
DX: R41.3 Other amnesia (principal); F07.81 Postconcussional syndrome; R29.6 Repeated falls; G31.89 Other specified degenerative diseases of nervous system; I67.82 Cerebral ischemia

== ENCOUNTER 2023-01-15 09:45 | Outpatient (CLI) | payer MEDICARE, BC ==
--- NOTE | 2023-01-15 10:52 | XRAY Report ---
PROCEDURE: Lumbar Spine 2 View INDICATIONS: STRAIN OF LOWER BACK TECHNIQUE: 3 views of the lumbar spine were acquired. COMPARISON: None. FINDINGS: Bones: 5 [id number] vertebrae are present. There is normal bony alignment. No vertebral body compression fractures. No suspicious bony lesions. Mild disc height loss at all levels. Multilevel marginal osteitis. Soft tissues: Overlying bowel gas pattern is normal. Large gallstone measuring at least 2.8 cm. IMPRESSION: Multilevel, mild degenerative disc disease. Cholelithiasis. Reviewed by: Benito Lew on 01/15/2023 10:51 AM PDT Approved by: Benito Lew on 01/15/2023 10:51 AM PDT Station ID: [id number]
--- NOTE | 2023-01-15 11:01 | XRAY Report ---
PROCEDURE: Hip w/Pelvis 2-3V LT INDICATIONS: STRAIN OF LOWER BACK TECHNIQUE: AP pelvis with lateral view(s) of the 3 hip(s). COMPARISON: None. FINDINGS: Bones: Intramedullary nia and intertrochanteric screw fixation of the left femur. The intertrochante desean fracture alignment is anatomic, with sclerosis. Soft tissues: No suspicious soft tissue calcifications or masses. IMPRESSION: Left hip ORIF, with anatomic alignment. Reviewed by: Benito Lew on 01/15/2023 11:00 AM PDT Approved by: Benito Lew on 01/15/2023 11:00 AM PDT Station ID: [id number]
[2023-01-15 14:38] LABS: BASOPHILS % (AUTO) 0.5 %; EOSINOPHILS # (AUTO) 0.1 10^3/uL (0.0-0.7); EOSINOPHILS % (AUTO) 2.1 %; HCT - HEMATOCRIT 30.7 % (42.0-52.0); LYMPHOCYTES # (AUTO) 0.9 10^3/uL (1.5-3.5); LYMPHOCYTES % (AUTO) 20.4 %; MEAN CORPUSCULAR HEMOGLOBIN 24.4 pg (27.0-31.0); MEAN CORPUSCULAR HGB CONC 29.3 g/dL (32.0-36.0); MEAN CORPUSCULAR VOLUME 83.2 fL (80.0-94.0); MEAN PLATELET VOLUME 10.9 fL (7.4-11.4); MONOCYTES # (AUTO) 0.4 10^3/uL (0.0-1.0); MONOCYTES % (AUTO) 10.2 %; NEUTROPHILS # (AUTO) 2.9 10^3/uL (1.5-6.6); NEUTROPHILS % (AUTO) 65.9 %; PLT - PLATELET COUNT 189 10^3/uL (130-450); RED BLOOD COUNT 3.69 10^6/uL (4.70-6.10); WHITE BLOOD COUNT 4.3 x10^3/uL (4.8-10.8)
[2023-01-15 15:09] LABS: ALBUMIN 4.2 g/dL (3.2-5.5); ALKALINE PHOSPHATASE 91 IU/L (42-121); ALT ALANINE AMINOTRANSFERASE 17 IU/L (10-60); AST ASPARTATE AMINOTRANSFERASE 12 IU/L (10-42); BILIRUBIN,TOTAL 0.5 mg/dL (0.2-1.0); BUN - BLOOD UREA NITROGEN 32 mg/dL (6-20); CALCIUM 9.5 mg/dL (8.5-10.3); CARBON DIOXIDE - CO2 25 mmol/L (21-32); CHLORIDE 103 mmol/L (101-111); CHOL/HDL RATIO 2.8 (<5.0); CHOLESTEROL 108 mg/dL; CREATININE 1.3 mg/dL (0.6-1.2); CRP - C-REACTIVE PROTEIN 2.2 mg/dL (0-1.0); GFR - MDRD 53 (>89); GLUCOSE 140 mg/dL (70-100); HDL CHOLESTEROL 38 mg/dL; LDL CHOLESTEROL,CALCULATED 51 mg/dL; LDL/HDL RATIO 1.3 (<3.6); POTASSIUM 3.3 mmol/L (3.5-5.0); SODIUM 137 mmol/L (135-145); THYROID STIMULATING HORMONE 1.2 uIU/mL (0.34-5.60); TOTAL PROTEIN 8.3 g/dL (6.7-8.2); TRIGLYCERIDES 96 mg/dL; VLDL CHOLESTEROL 19 mg/dL
[2023-01-15 20:32] LABS: ESTIMATED AVERAGE GLUCOSE 151 mg/dL (70-100); HEMOGLOBIN A1c% 6.9 % (4.27-6.07)
== END 2023-01-15 09:46 | disposition home or self-care (01) ==
LOC: DI.S 09:45
PROVIDERS: ATTEND Emergency Medicine
DX: M51.36 Other intervertebral disc degeneration, lumbar region (principal); K80.20 Calculus of gallbladder without cholecystitis without obstruction; I48.91 Unspecified atrial fibrillation; N40.0 Benign prostatic hyperplasia without lower urinary tract symptoms; I25.10 Atherosclerotic heart disease of native coronary artery without angina pectoris; E11.9 Type 2 diabetes mellitus without complications; R29.6 Repeated falls; K21.9 Gastro-esophageal reflux disease without esophagitis; D50.9 Iron deficiency anemia, unspecified; R41.3 Other amnesia; M81.0 Age-related osteoporosis without current pathological fracture; M35.3 Polymyalgia rheumatica; F07.81 Postconcussional syndrome; Z00.00 Encounter for general adult medical examination without abnormal findings
CPT/HCPCS: 36415; 80053; 80061; 82043; 82570; 82607; 83036; 83721; 84443; 85025; 85651; 86140; 86780

== ENCOUNTER 2023-01-15 15:54 | Emergency (ER) | payer MEDICARE, OTHER ==
--- NOTE | 2023-01-15 16:24 | ED Physician Documentation ---
PD HPI SEIZURE - Stated complaint Stated Complaint: SEIZURE? - Chief complaint Chief Complaint: Neuro - History obtained from History obtained from: Patient - Additional information Additional information: 82-year-old gentleman who is anticoagulated on Eliquis was in his usual state of health when he fell about 4 nights ago. He was getting out of the shower and walking backwards and he simply lost his balance and hit the back of his head and his posterior hips going down. There is no loss of consciousness at that time and he went today to the urgent care where he had his hips and pelvis x-rayed which were reportedly normal, he went home and was sitting on the couch and his witnessed what she thought was probably a seizure he was sitting on the couch and flailing and he was not responsive for several minutes afterward but she says he was not specifically confused otherwise. He feels fine now and does not think anything of consequence happened. No history of seizures. PD PAST MEDICAL HISTORY - Past Medical History Cardiovascular: Hypertension, High cholesterol, CO, Atrial fibrillation Neuro: Dementia Endocrine/Autoimmune: Type 2 diabetes : Benign prostate hypertrophy Musculoskeletal: Osteoarthritis - Past Surgical History Past Surgical History: Yes Ortho: Hip replacement, Knee replacement - Present Medications Home Medications: Ambulatory Orders Medication Instructions Recorded Confirmed cephALEXin [Keflex] 500 mg PO Q6H #28 cap 08/15/21 Apixaban [Eliquis] 5 mg PO BID 06/05/22 06/05/22 Atorvastatin Calcium 40 mg PO DAILY 06/05/22 06/05/22 Finasteride [Proscar] 5 mg PO DAILY 06/05/22 06/05/22 Isosorbide Mononitrate [Isosorbide 60 mg PO DAILY 06/05/22 06/05/22 Mononitrate ER] Losartan Potassium [Cozaar] 100 mg PO DAILY 06/05/22 06/05/22 Metoprolol Succinate [Toprol Xl] 200 mg PO DAILY 06/05/22 06/05/22 Tamsulosin [Flomax] 0.4 mg PO DAILY 06/05/22 06/05/22 glipiZIDE [Glipizide ER] 2.5 mg PO DAILY 06/05/22 06/05/22 hydroCHLOROthiazide [Hydrodiuril] 25 mg PO DAILY 06/05/22 06/05/22 Empagliflozin [Jardiance] 25 mg PO DAILY 01/15/23 01/15/23 - Allergies Allergies/Adverse Reactions: Allergies Allergy/AdvReac Type Severity Reaction Status Date / Time No Known Drug Allergies Allergy Verified 01/15/23 16:13 - Social History Does the pt smoke?: No Smoking Status: Never smoker Does the pt drink ETOH?: No Does the pt have substance abuse?: No - Immunizations Immunizations are current?: Yes PD ED PE NORMAL - Vitals Vital signs reviewed: Yes - General General: Alert and oriented X 3, No acute distress - HEENT HEENT: PERRL, EOMI - Neck Neck: Supple, no meningeal sign, No bony TTP - Cardiac Cardiac: RRR, No murmur - Respiratory Respiratory: No respiratory distress, Clear bilaterally - Abdomen Abdomen: Non tender - Back Back: No CVA TTP, No spinal TTP - Derm Derm: Normal color, Warm and dry - Extremities Extremities: No deformity, No tenderness to palpate, Normal ROM s pain - Neuro Neuro: Alert and oriented X 3, 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 Relevant findings are: Rate: Rate (enter#) (62) Rhythm: NSR Intervals: LBBB Computer interpretation: Agree with computer - Labs Labs: Laboratory Tests 01/15/23 01/15/23 17:04 17:04 WBC 4.3 L RBC 3.57 L Hgb 8.9 L Hct 28.9 L MCV 81.0 MCH 24.9 L MCHC 30.8 L RDW 15.9 H Plt Count 170 MPV 10.2 Neut # (Auto) 2.7 Lymph # (Auto) 1.0 L Jewell # (Auto) 0.6 Eos # (Auto) 0.1 Baso # (Auto) 0.0 Absolute Nucleated RBC 0.00 Nucleated RBC % 0.0 Sodium 136 Potassium 3.2 L Chloride 101 Carbon Dioxide 23 Anion Gap 12.0 BUN 38 H Creatinine 1.5 H Estimated GFR (MDRD) 45 L Glucose 129 H Calcium 9.1 PD Medical Decision Making - ED course ED course: 82-year-old gentleman who is 4 days after head injury with possible seizure and he is anticoagulated with Eliquis. Will obtain CT scanning of the head and basic labs. CBC reviewed showing moderate anemia not significantly different than it was in May. CT of the head and cervical spine interpreted independently by me and final reports received without intracranial injury. BMP showing slightly worse renal function than prior, and mild hypokalemia which is repleted orally. Departure - Departure Disposition: Home, Self Care Clinical Impression: Seizure-like activity, Adequate anticoagulation on anticoagulant therapy Head injury Qualifiers: Encounter type: initial encounter Qualified Code(s): S09.90XA - Unspecified injury of head, initial encounter Condition: Good Record reviewed to determine appropriate education?: Yes Instructions: ED Head Injury Closed, ED Seizure New Onset Unk Cause Comments: It is not clear if the episode today was a seizure, You should definitely follow-up with your physician for further evaluation and treatment, consideration for neurology referral. Per state law and out of caution you should not drive for 6 months or until cleared by neurologist. Return for new or worsening symptoms.
--- OUTSIDE RECORDS SUMMARY | 2023-01-15 16:58 | EXTERNAL MEDICAL SUMMARY RPT | Continuity of Care Document ---
:1940 Author Organization [facility] Address [address] [place] [address] Phone Care Team Providers Name Role Phone Unavailable Unavailable Unavailable Karthikeyan James Md Unavailable Unavailable Marly Patient Registrar, Anjali Unavailable Unav ailable Andi, Provider Unavailable Unavailable Allergies No information. Encounters No information. Functional Status No information. Immunizations No information. Medications date description facility 2023-01-15 00:00 apixaban Walk[facility]In [facility] 2023-01-15 00:00 tramadol Walk-In [facility] 2022-10-17 00:00 hydrochlorothiazide Walk-In Clinic [facility] 2022-10-18 00:00 hydrochlorothiazide Walk-In Clinic [facility] 2023-01-15 00:00 hydrochlorothiazide Walk-In Clinic [facility] 2023-01-15 00:00 hydrochlorothiazide Walk-In Clinic [facility] 2022-10-17 00:00 oxycodone Walk-In [facility] 2022-10-18 00:00 oxycodone Walk-In Clinic [facility] 2023-01-15 00:00 oxycodone Walk-In Clinic [facility] 2023-01-15 00:00 oxycodone Walk-In [facility] 2023-01-15 00:00 empagliflozin Walk-In [facility] 2022-10-17 00:00 blood-glucose meter Walk-In Clinic [facility] 2022-10-18 00:00 blood-glucose meter Walk-In Clinic [facility] 2023-01-15 00:00 blood-glucose meter Walk-In Clinic [facility] 2023-01-15 00:00 blood-glucose meter Walk-In Clinic [facility] 2022-10-17 00:00 blood-glucose meter Walk-In Clinic [facility] 2022-10-18 00:00 blood-glucose meter Walk-In Clinic [facility] 2023-01-15 00:00 blood-glucose meter Walk-In Clinic [facility] 2023-01-15 00:00 blood-glucose meter Walk-In Clinic [facility] 2022-10-17 00:00 hydrochlorothiazide Walk-In Clinic [facility] 2022-10-18 00:00 hydrochlorothiazide Walk-In Clinic [facility] 2023-01-15 00:00 hydrochlorothiazide Walk-In Clinic [facility] 2023-01-15 00:00 hydrochlorothiazide Walk-In Clinic [facility] 2022-10-17 00:00 alcohol swabs [facility] 2022-10-18 00:00 alcohol swabs [facility] 2023-01-15 00:00 alcohol swabs [facility] 2023-01-15 00:00 alcohol swabs [facility] 2022-10-17 00:00 oxycodone [facility] 2022-10-18 00:00 oxycodone [facility] 2023-01-15 00:00 oxycodone [facility] 2023-01-15 00:00 oxycodone [facility] 2022-10-17 00:00 docusate calcium [facility] 2022-10-18 00:00 docusate calcium [facility] 2023-01-15 00:00 docusate calcium [facility] 2023-01-15 00:00 docusate calcium [facility] 2023-01-15 00:00 apixaban [facility] 2023-01-15 00:00 empagliflozin [facility] 2022-10-17 00:00 naloxone [facility] 2022-10-18 00:00 naloxone [facility] 2023-01-15 00:00 naloxone [facility] 2023-01-15 00:00 naloxone [facility] 2023-01-15 00:00 apixaban [facility] 2022-10-17 00:00 blood-glucose meter Walk-In Clinic [facility] 2022-10-18 00:00 blood-glucose meter Walk-In Clinic [facility] 2023-01-15 00:00 blood-glucose meter Walk-In Clinic [facility] 2023-01-15 00:00 blood-glucose meter Walk-In Clinic [facility] 2023-01-15 00:00 empagliflozin [facility] 2022-10-17 00:00 naloxone [facility] 2022-10-18 00:00 naloxone [facility] 2023-01-15 00:00 naloxone [facility] 2023-01-15 00:00 naloxone [facility] 2023-01-15 00:00 aspirin [facility] 2022-10-17 00:00 blood-glucose meter Walk-In Clinic [facility] 2022-10-18 00:00 blood-glucose meter Walk-In Clinic [facility] 2023-01-15 00:00 blood-glucose meter [facility] 2023-01-15 00:00 blood-glucose meter [facility] 2022-10-17 00:00 lidocaine [facility] 2022-10-18 00:00 lidocaine [facility] 2023-01-15 00:00 lidocaine [facility] 2023-01-15 00:00 lidocaine [facility] 2022-10-17 00:00 aspirin [facility] 2022-10-18 00:00 aspirin [facility] 2023-01-15 00:00 aspirin [facility] 2023-01-15 00:00 aspirin [facility] 2023-01-15 00:00 aspirin [facility] 2022-10-17 00:00 aspirin [facility] 2022-10-18 00:00 aspirin [facility] 2023-01-15 00:00 aspirin [facility] 2023-01-15 00:00 aspirin [facility] 2023-01-15 00:00 empagliflozin [facility] 2022-10-17 00:00 alendronate [facility] 2022-10-18 00:00 alendronate [facility] 2023-01-15 00:00 alendronate [facility] 2023-01-15 00:00 alendronate [facility] 2022-10-17 00:00 hydrochlorothiazide Walk-In Clinic [facility] 2022-10-18 00:00 hydrochlorothiazide Walk-In Clinic [facility] 2023-01-15 00:00 hydrochlorothiazide Walk-In Clinic [facility] 2023-01-15 00:00 hydrochlorothiazide Walk-In Clinic [facility] 2022-10-17 00:00 hydrochlorothiazide Walk-In Clinic [facility] 2022-10-18 00:00 hydrochlorothiazide Walk-In Clinic [facility] 2023-01-15 00:00 hydrochlorothiazide Walk-In Clinic [facility] 2023-01-15 00:00 hydrochlorothiazide Walk-In Clinic [facility] 2023-01-15 00:00 tramadol [facility] 2022-10-17 00:00 oxycodone [facility] 2022-10-18 00:00 oxycodone [facility] 2023-01-15 00:00 oxycodone [facility] 2023-01-15 00:00 oxycodone [facility] 2022-10-17 00:00 docusate calcium [facility] 2022-10-18 00:00 docusate calcium [facility] 2023-01-15 00:00 docusate calcium [facility] 2023-01-15 00:00 docusate calcium [facility] 2022-10-17 00:00 aspirin [facility] 2022-10-18 00:00 aspirin [facility] 2023-01-15 00:00 aspirin [facility] 2023-01-15 00:00 aspirin [facility] 2022-10-17 00:00 lidocaine [facility] 2022-10-18 00:00 lidocaine [facility] 2023-01-15 00:00 lidocaine [facility] 2023-01-15 00:00 lidocaine [facility] 2022-10-17 00:00 docusate calcium [facility] 2022-10-18 00:00 docusate calcium [facility] 2023-01-15 00:00 docusate calcium [facility] 2023-01-15 00:00 docusate calcium [facility] 2022-10-17 00:00 aspirin [facility] 2022-10-18 00:00 aspirin [facility] 2023-01-15 00:00 aspirin [facility] 2023-01-15 00:00 aspirin [facility] 2022-10-17 00:00 oxycodone [facility] 2022-10-18 00:00 oxycodone [facility] 2023-01-15 00:00 oxycodone [facility] 2023-01-15 00:00 oxycodone [facility] 2023-01-15 00:00 tramadol [facility] 2022-10-17 00:00 alendronate [facility] 2022-10-18 00:00 alendronate [facility] 2023-01-15 00:00 alendronate [facility] 2023-01-15 00:00 alendronate [facility] 2022-10-17 00:00 alcohol swabs [facility] 2022-10-18 00:00 alcohol swabs [facility] 2023-01-15 00:00 alcohol swabs [facility] 2023-01-15 00:00 alcohol swabs [facility] 2022-10-17 00:00 alendronate [facility] 2022-10-18 00:00 alendronate [facility] 2023-01-15 00:00 alendronate [facility] 2023-01-15 00:00 alendronate [facility] 2022-10-17 00:00 docusate calcium [facility] 2022-10-18 00:00 docusate calcium [facility] 2023-01-15 00:00 docusate calcium [facility] 2023-01-15 00:00 docusate calcium [facility] 2022-10-17 00:00 naloxone [facility] 2022-10-18 00:00 naloxone [facility] 2023-01-15 00:00 naloxone [facility] 2023-01-15 00:00 naloxone [facility] 2023-01-15 00:00 apixaban [facility] 2023-01-15 00:00 tramadol [facility] 2022-10-17 00:00 alendronate [facility] 2022-10-18 00:00 alendronate [facility] 2023-01-15 00:00 alendronate [facility] 2023-01-15 00:00 alendronate Walk[facility]In [facility] 2022-10-17 00:00 lidocaine Walk[facility]In [facility] 2022-10-18 00:00 lidocaine Walk[facility] 2023-01-15 00:00 lidocaine Walk[facility] 2023-01-15 00:00 lidocaine Walk[facility]In Clinic [facility] 2022-10-17 00:00 naloxone Walk[facility]In Clinic [facility] 2022-10-18 00:00 naloxone Walk[facility]In [facility] 2023-01-15 00:00 naloxone Walk[facility] 2023-01-15 00:00 naloxone Walk[facility] 2022-10-17 00:00 blood-glucose meter Walk-In Clinic [facility] 2022-10-18 00:00 blood-glucose meter Walk-In Clinic [facility] 2023-01-15 00:00 blood-glucose meter Walk-In [facility] 2023-01-15 00:00 blood-glucose meter Walk-In [facility] 2022-10-17 00:00 blood-glucose meter Walk-In [facility] 2022-10-18 00:00 blood-glucose meter Walk-In [facility] 2023-01-15 00:00 blood-glucose meter Walk-In [facility] 2023-01-15 00:00 blood-glucose meter Walk[facility]In [facility] 2022-10-17 00:00 alcohol swabs Walk[facility] 2022-10-18 00:00 alcohol swabs Walk[facility] 2023-01-15 00:00 alcohol swabs Walk[facility] 2023-01-15 00:00 alcohol swabs [facility] 2022-10-17 00:00 magnesium hydroxide Walk-In [facility] 2022-10-18 00:00 magnesium hydroxide Walk-In [facility] 2023-01-15 00:00 magnesium hydroxide Walk-In [facility] 2023-01-15 00:00 magnesium hydroxide Walk[facility]In [facility] Problems date description facility 2023-01-15 00:00 Lumbar spondylosis Walk[facility]In [facility] miguel 2023-01-15 00:00 Low back strain Walk[facility]In [facility] depew 2023-01-15 00:00 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Walk-I n [facility] & without mention of myelopathy [facility] 2023-01-15 00:00 Lumbar sprain Walk[facility]In [facility] de[facility]w 2023-01-15 00:00 Other spondylosis, lumbar region Walk- In [facility] de[facility] 2023-01-15 00:00 Strain of muscle, fascia and Walk-In [facility] Primary Care & tendon of lower back, initial Ancillary Services [facility] encounter Procedures date description facility 2023-01-15 00:00 Visit Code Hold Walk[facility] depew 2023-01-15 00:00 XR LUMBAR SPINE 2 OR 3 VIEW Walk-In in [facility] miguel Results/Labs test date author facility value unit interpret ation Result panel 1 (unknown) (no date) (unknown) Walk-In (no value) (units (unk nown) Clinic Primary unknown) [facility] Result panel 2 (unknown) (no date) (unknown) Walk-In (no value) (units (unk nown) Clinic Primary unknown) [facility] Result panel 3 (unknown) (no date) (unknown) Walk-In (no value) (units (unk nown) Clinic Primary unknown) [facility] Result panel 4 (unknown) (no date) (unknown) Walk-In (no value) (units (unk nown) Clinic Primary unknown) [facility] Result panel 5 (unknown) (no date) (unknown) Walk-In (no value) (units (unk nown) Clinic Primary unknown) [facility] Result panel 6 (unknown) (no date) (unknown) Walk-In (no value) (units (unk nown) Clinic Primary unknown) [facility] Result panel 7 (unknown) (no date) (unknown) Walk-In (no value) (units (unk nown) Clinic Primary unknown) [facility] Result panel 8 (unknown) (no date) (unknown) Walk-In (no value) (units (unk nown) Clinic Primary unknown) [facility] Result panel 9 (unknown) (no date) (unknown) Walk-In (no value) (units (unk nown) Clinic Primary unknown) [facility] Result panel 10 (unknown) (no date) (unknown) Walk-In (no value) (units (unk nown) Clinic Primary unknown) [facility] Result panel 11 (unknown) (no date) (unknown) Walk-In (no value) (units (unk nown) Clinic Primary unknown) [facility] Result panel 12 (unknown) (no date) (unknown) Walk-In (no value) (units (unk nown) Clinic Primary unknown) [facility] Result panel 13 (unknown) (no date) (unknown) Walk-In (no value) (units (unk nown) Clinic Primary unknown) [facility] Result panel 14 (unknown) (no date) (unknown) Walk-In (no value) (units (unk nown) Clinic Primary unknown) [facility] Result panel 15 (unknown) (no date) (unknown) Walk-In (no value) (units (unk nown) Clinic Primary unknown) [facility] Result panel 16 (unknown) (no date) (unknown) Walk-In (no value) (units (unk nown) Clinic Primary unknown) [facility] Result panel 17 (unknown) (no date) (unknown) Walk-In (no value) (units (unk nown) Clinic Primary unknown) [facility] Result panel 18 (unknown) (no date) (unknown) Walk-In (no value) (units (unk nown) Clinic Primary unknown) [facility] Result panel 19 (unknown) (no date) (unknown) Walk-In (no value) (units (unk nown) Clinic Primary unknown) [facility] Result panel 20 (unknown) (no date) (unknown) Walk-In (no value) (units (unk nown) Clinic Primary unknown) [facility] Result panel 21 (unknown) (no date) (unknown) Walk-In (no value) (units (unk nown) Clinic Primary unknown) [facility] Result panel 22 (unknown) (no date) (unknown) Walk-In (no value) (units (unk nown) Clinic Primary unknown) [facility] Result panel 23 (unknown) (no date) (unknown) Walk-In (no value) (units (unk nown) Clinic Primary unknown) [facility] Result panel 24 (unknown) (no date) (unknown) Walk-In (no value) (units (unk nown) Clinic Primary unknown) [facility] Result panel 25 (unknown) (no date) (unknown) Walk-In (no value) (units (unk nown) Clinic Primary unknown) [facility] Result panel 26 (unknown) (no date) (unknown) Walk-In (no value) (units (unk nown) Clinic Primary unknown) [facility] Result panel 27 (unknown) (no date) (unknown) Walk-In (no value) (units (unk nown) Clinic Primary unknown) [facility] Result panel 28 (unknown) (no date) (unknown) Walk-In (no value) (units (unk nown) Clinic Primary unknown) [facility] Result panel 29 (unknown) (no date) (unknown) Walk-In (no value) (units (unk nown) Clinic Primary unknown) [facility] Result panel 30 (unknown) (no date) (unknown) Walk-In (no value) (units (unk nown) Clinic Primary unknown) [facility] Result panel 31 (unknown) (no date) (unknown) Walk-In (no value) (units (unk nown) Clinic Primary unknown) [facility] Result panel 32 (unknown) (no date) (unknown) Walk-In (no value) (units (unk nown) Clinic Primary unknown) [facility] Result panel 33 (unknown) (no date) (unknown) Walk-In (no value) (units (unk nown) Clinic Primary unknown) [facility] Result panel 34 (unknown) (no date) (unknown) Walk-In (no value) (units (unk nown) Clinic Primary unknown) [facility] Result panel 35 (unknown) (no date) (unknown) Walk-In (no value) (units (unk nown) Clinic Primary unknown) [facility] Result panel 36 (unknown) (no date) (unknown) Walk-In (no value) (units (unk nown) Clinic Primary unknown) [facility] Result panel 37 (unknown) (no date) (unknown) Walk-In (no value) (units (unk nown) Clinic Primary unknown) [facility] Result panel 38 (unknown) (no date) (unknown) Walk-In (no value) (units (unk nown) Clinic Primary unknown) [facility] Result panel 39 (unknown) (no date) (unknown) Walk-In (no value) (units (unk nown) Clinic Primary unknown) [facility] Result panel 40 (unknown) (no date) (unknown) Walk-In (no value) (units (unk nown) Clinic Primary unknown) [facility] Result panel 41 (unknown) (no date) (unknown) Walk-In (no value) (units (unk nown) Clinic Primary unknown) [facility] Result panel 42 (unknown) (no date) (unknown) Walk-In (no value) (units (unk nown) Clinic Primary unknown) [facility] Result panel 43 (unknown) (no date) (unknown) Walk-In (no value) (units (unk nown) Clinic Primary unknown) [facility] Result panel 44 (unknown) (no date) (unknown) Walk-In (no value) (units (unk nown) Clinic Primary unknown) [facility] Result panel 45 (unknown) (no date) (unknown) [facility] value[facility] Result panel 46 (unknown) (no date) (unknown) [facility] (no value[facility] Result panel 47 (unknown) (no date) (unknown) [facility] (no value) [facility] Result panel 48 (unknown) (no date) (unknown) [facility] (no value[facility] Result panel 49 (unknown) (no date) (unknown) [facility] (no value) [facility] Result panel 50 (unknown) (no date) (unknown) [facility] (no value) [facility] Result panel 51 (unknown) (no date) (unknown) [facility] (no value) [facility] Result panel 52 (unknown) (no date) (unknown) [facility] (no value) [facility] Result panel 53 (unknown) (no date) (unknown) [facility] (no value[facility] Result panel 54 (unknown) (no date) (unknown) [facility] (no value) [facility] Result panel 55 (unknown) (no date) (unknown) [facility] (no value) [facility] Result panel 56 (unknown) (no date) (unknown) [facility] (no value) [facility] Result panel 57 (unknown) (no date) (unknown) [facility] (no value) [facility] Result panel 58 (unknown) (no date) (unknown) [facility] (no value) [facility] Result panel 59 (unknown) (no date) (unknown) [facility] (no value) [facility] Result panel 60 (unknown) (no date) (unknown) [facility] (no value) [facility] Result panel 61 (unknown) (no date) (unknown) [facility] (no value) [facility] Result panel 62 (unknown) (no date) (unknown) [facility] (no value) [facility] Result panel 63 (unknown) (no date) (unknown) [facility] (no value) [facility] Result panel 64 (unknown) (no date) (unknown) [facility] (no value) [facility] Result panel 65 (unknown) (no date) (unknown) [facility] (no value) [facility] Result panel 66 (unknown) (no date) (unknown) [facility] (no value) [facility] Result panel 67 (unknown) (no date) (unknown) [facility] (no value) [facility] Result panel 68 (unknown) (no date) (unknown) [facility] (no value) [facility] Result panel 69 (unknown) (no date) (unknown) [facility] (no value) [facility] Result panel 70 (unknown) (no date) (unknown) [facility] (no value) [facility] Result panel 71 (unknown) (no date) (unknown) [facility] (no value) [facility] Result panel 72 (unknown) (no date) (unknown) [facility] (no value) [facility] Result panel 73 (unknown) (no date) (unknown) [facility] (no value) [facility] Result panel 74 (unknown) (no date) (unknown) [facility] (no value) [facility] Result panel 75 (unknown) (no date) (unknown) [facility] (no value) [facility] Result panel 76 (unknown) (no date) (unknown) [facility] (no value) [facility] Result panel 77 (unknown) (no date) (unknown) [facility] (no value) [facility] Result panel 78 (unknown) (no date) (unknown) [facility] (no value) [facility] Result panel 79 (unknown) (no date) (unknown) [facility] (no value) [facility] Result panel 80 (unknown) (no date) (unknown) [facility] (no value) [facility] Result panel 81 (unknown) (no date) (unknown) [facility] (no value) [facility] Result panel 82 (unknown) (no date) (unknown) [facility] (no value) [facility] Result panel 83 (unknown) (no date) (unknown) [facility] (no value) [facility] Result panel 84 (unknown) (no date) (unknown) [facility] (no value) [facility] Result panel 85 (unknown) (no date) (unknown) [facility] (no value) [facility] Result panel 86 (unknown) (no date) (unknown) [facility] (no value) [facility] Result panel 87 (unknown) (no date) (unknown) [facility] (no value) [facility] Result panel 88 (unknown) (no date) (unknown) [facility] (no value) [facility] Result panel 89 (unknown) (no date) (unknown) [facility] (no value) [facility] Result panel 90 (unknown) (no date) (unknown) [facility] (no value) [facility] Result panel 91 (unknown) (no date) (unknown) [facility] (no value) [facility] Result panel 92 (unknown) (no date) (unknown) [facility] (no value) [facility] Result panel 93 (unknown) (no date) (unknown) [facility] (no value) [facility] Result panel 94 (unknown) (no date) (unknown) [facility] (no value) [facility] Result panel 95 (unknown) (no date) (unknown) [facility] (no value) [facility] Result panel 96 (unknown) (no date) (unknown) [facility] (no value) [facility] Result panel 97 (unknown) (no date) (unknown) [facility] (no value) [facility] Result panel 98 (unknown) (no date) (unknown) [facility] (no value) [facility] Result panel 99 (unknown) (no date) (unknown) [facility] (no value) [facility] Result panel 100 (unknown) (no date) (unknown) [facility] (no value) [facility] Result panel 101 (unknown) (no date) (unknown) [facility] (no value) [facility] Result panel 102 (unknown) (no date) (unknown) [facility] (no value) [facility] Result panel 103 (unknown) (no date) (unknown) [facility] (no value) [facility] Result panel 104 (unknown) (no date) (unknown) [facility] (no value) [facility] Result panel 105 (unknown) (no date) (unknown) [facility] (no value) [facility] Result panel 106 (unknown) (no date) (unknown) [facility] (no value) [facility] Result panel 107 (unknown) (no date) (unknown) [facility] (no value) [facility] Result panel 108 (unknown) (no date) (unknown) [facility] (no value) [facility] Result panel 109 (unknown) (no date) (unknown) [facility] (no value) [facility] Result panel 110 (unknown) (no date) (unknown) [facility] (no value) [facility] Result panel 111 (unknown) (no date) (unknown) [facility] (no value) [facility] Result panel 112 (unknown) (no date) (unknown) [facility] (no value) [facility] Result panel 113 (unknown) (no date) (unknown) [facility] (no value) [facility] Result panel 114 (unknown) (no date) (unknown) [facility] (no value) [facility] Result panel 115 (unknown) (no date) (unknown) [facility] (no value) [facility] Result panel 116 (unknown) (no date) (unknown) [facility] (no value) [facility] Result panel 117 (unknown) (no date) (unknown) [facility] (no value) [facility] Result panel 118 (unknown) (no date) (unknown) [facility] (no value) [facility] Result panel 119 (unknown) (no date) (unknown) [facility] (no value) [facility] Result panel 120 (unknown) (no date) (unknown) [facility] (no value) [facility] Result panel 121 (unknown) (no date) (unknown) [facility] (no value) [facility] Result panel 122 (unknown) (no date) (unknown) [facility] (no value) [facility] Result panel 123 (unknown) (no date) (unknown) [facility] (no value) [facility] Result panel 124 (unknown) (no date) (unknown) [facility] (no value) [facility] Result panel 125 (unknown) (no date) (unknown) [facility] (no value) [facility] Result panel 126 (unknown) (no date) (unknown) [facility] (no value) [facility] Result panel 127 (unknown) (no date) (unknown) [facility] (no value) [facility] Result panel 128 (unknown) (no date) (unknown) [facility] (no value) [facility] Result panel 129 (unknown) (no date) (unknown) [facility] (no value) [facility] Result panel 130 (unknown) (no date) (unknown) [facility] (no value) [facility] Result panel 131 (unknown) (no date) (unknown) [facility] (no value) [facility] Result panel 132 (unknown) (no date) (unknown) [facility] (no value) [facility] Result panel 133 (unknown) (no date) (unknown) [facility] (no value) [facility] Result panel 134 (unknown) (no date) (unknown) [facility] (no value) [facility] Result panel 135 (unknown) (no date) (unknown) [facility] (no value) [facility] Result panel 136 (unknown) (no date) (unknown) [facility] (no value) [facility] Result panel 137 (unknown) (no date) (unknown) [facility] (no value) [facility] Result panel 138 (unknown) (no date) (unknown) [facility] (no value) [facility] Result panel 139 (unknown) (no date) (unknown) [facility] (no value) [facility] Result panel 140 (unknown) (no date) (unknown) [facility] (no value) [facility] Result panel 141 (unknown) (no date) (unknown) [facility] (no value) [facility] Result panel 142 (unknown) (no date) (unknown) [facility] (no value) [facility] Result panel 143 (unknown) (no date) (unknown) [facility] (no value) [facility] Result panel 144 (unknown) (no date) (unknown) [facility] (no value) [facility] Result panel 145 (unknown) (no date) (unknown) [facility] (no value) [facility] Result panel 146 (unknown) (no date) (unknown) [facility] (no value) [facility] Result panel 147 (unknown) (no date) (unknown) [facility] (no value) [facility] Result panel 148 (unknown) (no date) (unknown) [facility] (no value) [facility] Result panel 149 (unknown) (no date) (unknown) [facility] (no value) [facility] Social History date description facility 2023-01-15 00:00 Former smoker [facility] Vital Signs date measurement value units 2023-01-15 00:00 BMI 27.82 kg/m2 2023-01-15 00:00 BP_diastolic 73 mmHg 2023-01-15 00:00 BP_systolic 145 mmHg 2023-01-15 00:00 heart_rate 65 /min 2023-01-15 00:00 height_metric 170.18 cm 2023-01-15 00:00 height_standard 67 in 2023-01-15 00:00 respiration_rate 16 /min 2023-01-15 00:00 temperature_metric 36.5 C 2023-01-15 00:00 temperature_standard 97.7 F 2023-01-15 00:00 weight_metric 80.29 kg 2023-01-15 00:00 weight_standard 177 lb
--- NOTE | 2023-01-15 17:08 | CT Report ---
PROCEDURE: HEAD WO INDICATIONS: head inj/sz TECHNIQUE: Noncontrast 4.5 mm thick angled axial sections acquired from the foramen magnum to the vertex. For r adiation dose reduction, the following was used: automated exposure control, adjustment of mA and/or kV according to patient size. COMPARISON: 01/02/2023. FINDINGS: Image quality: Excellent. CSF spaces: Basal cisterns are patent. No extra-axial fluid collections. Ventricles are normal in size and shape. Brain: No midline shift. No intracranial masses or hemorrhage. Ward-white matter interface is norm al. Age-related volume loss and severe small vessel ischemic change. Skull and face: Calvarium and visualized facial bones are intact, without suspicious lesions. Sinuses: Visualized sinuses and mastoids are clear. IMPRESSION: 1. Age related volume loss and severe small vessel ischemic change. 2. No evidence acute intracranial pathology. Reviewed by: Derian Holliday MD on 01/15/2023 5:07 PM PDT Approved by: Derian Holliday MD on 01/15/2023 5:07 PM PDT Station ID: [id number]
--- NOTE | 2023-01-15 17:10 | CT Report ---
PROCEDURE: CERVICAL SPINE WO INDICATIONS: head inj TECHNIQUE: Noncontrast 3 mm thick sections acquired from the skull base to the T4 level. Sagittal and coronal r eformats were then constructed. For radiation dose reduction, the following was used: automated exp osure control, adjustment of mA and/or kV according to patient size. COMPARISON: None. FINDINGS: Image quality: Excellent. Bones: No fractures or dislocations. Visualized superior ribs are intact. Mild cervical spondyliti c change. Soft tissues: Prevertebral soft tissues are normal in thickness. No paravertebral hematomas. No ap ical pneumothoraces. IMPRESSION: 1. No evidence acute cervical fracture or dislocation. Excellent 2. Mild cervical spondylosis. Reviewed by: Derian Holliday MD on 01/15/2023 5:09 PM PDT Approved by: Derian Holliday MD on 01/15/2023 5:09 PM PDT Station ID: [id number]
[2023-01-15 17:12] LABS: BASOPHILS % (AUTO) 0.2 %; EOSINOPHILS # (AUTO) 0.1 10^3/uL (0.0-0.7); EOSINOPHILS % (AUTO) 1.2 %; HCT - HEMATOCRIT 28.9 % (42.0-52.0); HGB - HEMOGLOBIN 8.9 g/dL (14.0-18.0); LYMPHOCYTES % (AUTO) 22.7 %; MEAN CORPUSCULAR HEMOGLOBIN 24.9 pg (27.0-31.0); MEAN CORPUSCULAR HGB CONC 30.8 g/dL (32.0-36.0); MEAN PLATELET VOLUME 10.2 fL (7.4-11.4); MONOCYTES # (AUTO) 0.6 10^3/uL (0.0-1.0); NEUTROPHILS # (AUTO) 2.7 10^3/uL (1.5-6.6); NEUTROPHILS % (AUTO) 62.4 %; PLT - PLATELET COUNT 170 10^3/uL (130-450); RED BLOOD COUNT 3.57 10^6/uL (4.70-6.10); RED CELL DISTRIBUTION WIDTH 15.9 % (12.0-15.0); WHITE BLOOD COUNT 4.3 x10^3/uL (4.8-10.8)
[2023-01-15 17:18] LABS: CALCIUM 9.1 mg/dL (8.5-10.3); CREATININE 1.5 mg/dL (0.6-1.2); POTASSIUM 3.2 mmol/L (3.5-5.0)
[2023-01-15] MEDS ORDERED: POTASSIUM CHLORIDE 20 MEQ TABLET PO STA (17:19)
[2023-01-15 17:57] VITALS: BP 119/67
== END 2023-01-15 17:57 | disposition home or self-care (01) ==
LOC: ED 15:54
DX: R56.9 Unspecified convulsions (principal); S09.90XA Unspecified injury of head, initial encounter; W18.39XA Other fall on same level, initial encounter; Y93.E1 Activity, personal bathing and showering; Y92.002 Bathroom of unspecified non-institutional (private) residence as the place of occurrence of the external cause; Z79.01 Long term (current) use of anticoagulants; K80.20 Calculus of gallbladder without cholecystitis without obstruction; I48.91 Unspecified atrial fibrillation; N40.0 Benign prostatic hyperplasia without lower urinary tract symptoms; I25.10 Atherosclerotic heart disease of native coronary artery without angina pectoris; E11.9 Type 2 diabetes mellitus without complications; R29.6 Repeated falls; K21.9 Gastro-esophageal reflux disease without esophagitis; D50.9 Iron deficiency anemia, unspecified; R41.3 Other amnesia; M81.0 Age-related osteoporosis without current pathological fracture; M35.3 Polymyalgia rheumatica; F07.81 Postconcussional syndrome; Z00.00 Encounter for general adult medical examination without abnormal findings
CPT/HCPCS: 36415; 70450; 72100; 72125; 73502; 80048; 80053; 80061; 82607; 83036; 84443; 85025; 85651; 86140; 86780; 93005; 99283; 99284; A9270; 82043; 82570; 83721

== ENCOUNTER 2023-01-22 00:34 | Emergency (ER) | payer MEDICARE, OTHER ==
--- OUTSIDE RECORDS SUMMARY | 2023-01-22 01:01 | EXTERNAL MEDICAL SUMMARY RPT | Continuity of Care Document ---
:1940 Author Organization [facility] Address [address] [place] [address] Phone Care Team Providers Name Role Phone Unavailable Unavailable Unavailable Karthikeyan James Md Unavailable Unavailable Marly Patient Registrar, Anjali Unavailable Unav ailable Allergies No information. Encounters No information. Functional Status No information. Immunizations No information. Medications date description facility 2023-01-15 00:00 apixaban [facility] 2023-01-16 00:00 apixaban [facility] 2023-01-15 00:00 tramadol [facility] 2023-01-15 00:00 hydrochlorothiazide Walk[facility]In [facility] 2023-01-15 00:00 hydrochlorothiazide Walk[facility] 2023-01-16 00:00 hydrochlorothiazide Walk[facility] 2023-01-15 00:00 oxycodone [facility] 2023-01-15 00:00 oxycodone [facility] 2023-01-16 00:00 oxycodone [facility] 2023-01-15 00:00 empagliflozin [facility] 2023-01-16 00:00 empagliflozin [facility] 2023-01-15 00:00 blood-glucose meter [facility] 2023-01-15 00:00 blood-glucose meter [facility] 2023-01-16 00:00 blood-glucose meter [facility] 2023-01-15 00:00 blood-glucose meter [facility] 2023-01-15 00:00 blood-glucose meter [facility] 2023-01-16 00:00 blood-glucose meter [facility] 2023-01-15 00:00 hydrochlorothiazide Walk[facility] 2023-01-15 00:00 hydrochlorothiazide Walk[facility] 2023-01-16 00:00 hydrochlorothiazide Walk[facility] 2023-01-15 00:00 alcohol swabs [facility] 2023-01-15 00:00 alcohol swabs [facility] 2023-01-16 00:00 alcohol swabs [facility] 2023-01-15 00:00 oxycodone [facility] 2023-01-15 00:00 oxycodone [facility] 2023-01-16 00:00 oxycodone [facility] 2023-01-15 00:00 docusate calcium [facility] 2023-01-15 00:00 docusate calcium [facility] 2023-01-16 00:00 docusate calcium [facility] 2023-01-15 00:00 apixaban [facility] 2023-01-16 00:00 apixaban [facility] 2023-01-15 00:00 empagliflozin [facility] 2023-01-16 00:00 empagliflozin [facility] 2023-01-15 00:00 naloxone [facility] 2023-01-15 00:00 naloxone [facility] 2023-01-16 00:00 naloxone [facility] 2023-01-15 00:00 apixaban [facility] 2023-01-16 00:00 apixaban [facility] 2023-01-15 00:00 blood-glucose meter [facility] 2023-01-15 00:00 blood-glucose meter [facility] 2023-01-16 00:00 blood-glucose meter [facility] 2023-01-15 00:00 empagliflozin [facility] 2023-01-16 00:00 empagliflozin [facility] 2023-01-15 00:00 naloxone [facility] 2023-01-15 00:00 naloxone [facility] 2023-01-16 00:00 naloxone [facility] 2023-01-15 00:00 aspirin [facility] 2023-01-16 00:00 aspirin [facility] 2023-01-15 00:00 blood-glucose meter [facility] 2023-01-15 00:00 blood-glucose meter [facility] 2023-01-16 00:00 blood-glucose meter [facility] 2023-01-15 00:00 lidocaine [facility] 2023-01-15 00:00 lidocaine [facility] 2023-01-16 00:00 lidocaine [facility] 2023-01-15 00:00 aspirin [facility] 2023-01-15 00:00 aspirin [facility] 2023-01-16 00:00 aspirin [facility] 2023-01-15 00:00 aspirin [facility] 2023-01-16 00:00 aspirin [facility] 2023-01-15 00:00 aspirin [facility] 2023-01-15 00:00 aspirin [facility] 2023-01-16 00:00 aspirin [facility] 2023-01-15 00:00 empagliflozin [facility] 2023-01-16 00:00 empagliflozin [facility] 2023-01-15 00:00 alendronate [facility] 2023-01-15 00:00 alendronate [facility] 2023-01-16 00:00 alendronate [facility] 2023-01-15 00:00 hydrochlorothiazide [facility] 2023-01-15 00:00 hydrochlorothiazide [facility] 2023-01-16 00:00 hydrochlorothiazide [facility] 2023-01-15 00:00 hydrochlorothiazide [facility] 2023-01-15 00:00 hydrochlorothiazide [facility] 2023-01-16 00:00 hydrochlorothiazide [facility] 2023-01-15 00:00 tramadol [facility] 2023-01-15 00:00 oxycodone [facility] 2023-01-15 00:00 oxycodone [facility] 2023-01-16 00:00 oxycodone [facility] 2023-01-15 00:00 docusate calcium [facility] 2023-01-15 00:00 docusate calcium [facility] 2023-01-16 00:00 docusate calcium [facility] 2023-01-15 00:00 aspirin [facility] 2023-01-15 00:00 aspirin [facility] 2023-01-16 00:00 aspirin [facility] 2023-01-15 00:00 lidocaine [facility] 2023-01-15 00:00 lidocaine [facility] 2023-01-16 00:00 lidocaine [facility] 2023-01-15 00:00 docusate calcium [facility] 2023-01-15 00:00 docusate calcium [facility] 2023-01-16 00:00 docusate calcium [facility] 2023-01-15 00:00 aspirin [facility] 2023-01-15 00:00 aspirin [facility] 2023-01-16 00:00 aspirin [facility] 2023-01-15 00:00 oxycodone [facility] 2023-01-15 00:00 oxycodone [facility] 2023-01-16 00:00 oxycodone [facility] 2023-01-15 00:00 tramadol [facility] 2023-01-15 00:00 alendronate [facility] 2023-01-15 00:00 alendronate [facility] 2023-01-16 00:00 alendronate [facility] 2023-01-15 00:00 alcohol swabs [facility] 2023-01-15 00:00 alcohol swabs [facility] 2023-01-16 00:00 alcohol swabs [facility] 2023-01-15 00:00 alendronate [facility] 2023-01-15 00:00 alendronate [facility] 2023-01-16 00:00 alendronate [facility] 2023-01-15 00:00 docusate calcium [facility] 2023-01-15 00:00 docusate calcium [facility] 2023-01-16 00:00 docusate calcium [facility] 2023-01-15 00:00 naloxone [facility] 2023-01-15 00:00 naloxone [facility] 2023-01-16 00:00 naloxone [facility] 2023-01-15 00:00 apixaban [facility] 2023-01-16 00:00 apixaban [facility] 2023-01-15 00:00 tramadol [facility] 2023-01-15 00:00 alendronate [facility] 2023-01-15 00:00 alendronate [facility] 2023-01-16 00:00 alendronate [facility] 2023-01-15 00:00 lidocaine Walk[facility]In Clinic [facility] 2023-01-15 00:00 lidocaine Walk[facility]In [facility] 2023-01-16 00:00 lidocaine Walk[facility]In [facility] 2023-01-15 00:00 naloxone Walk[facility]In [facility] 2023-01-15 00:00 naloxone Walk[facility]In [facility] 2023-01-16 00:00 naloxone Walk[facility]In [facility] 2023-01-15 00:00 blood-glucose meter Walk[facility]In [facility] 2023-01-15 00:00 blood-glucose meter [facility] 2023-01-16 00:00 blood-glucose meter [facility] 2023-01-15 00:00 blood-glucose meter [facility] 2023-01-15 00:00 blood-glucose meter [facility] [place] 2023-01-16 00:00 blood-glucose meter [facility] 2023-01-15 00:00 alcohol swabs Walk[facility]In [facility] 2023-01-15 00:00 alcohol swabs [facility] 2023-01-16 00:00 alcohol swabs [facility]In [facility] 2023-01-15 00:00 magnesium hydroxide [facility] 2023-01-15 00:00 magnesium hydroxide [facility] [place] 2023-01-16 00:00 magnesium hydroxide [facility]In [facility] [place] Problems date description facility 2023-01-15 00:00 Lumbar spondylosis Walk[facility] [place] 2023-01-15 00:00 Low back strain Walk[facility] [place] 2023-01-15 00:00 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[facility] without mention of myelopathy [facility] 2023-01-15 00:00 Lumbar sprain [facility] [place] 2023-01-15 00:00 Other spondylosis, lumbar region Walk- In [facility] [place] 2023-01-15 00:00 Strain of muscle, fascia and Walk-In [facility] Primary Care & tendon of lower back, initial [facility] encounter Procedures date description facility 2023-01-15 00:00 Visit Code Hold Walk-In [facility] [place] 2023-01-15 00:00 XR LUMBAR SPINE 2 OR 3 VIEW Walk[facility]In [facility] [place] Results/Labs test date author facility value unit [...] [facility] Result panel 8 (unknown) (no date) (unknown) [...] [facility] Result panel 150 (unknown) (no date) (unknown) Walk-In (no value) (units (unk nown) Clinic Primary unknown) [facility] Result panel 151 (unknown) (no date) (unknown) Walk-In (no value) (units ([facility] nown) Clinic [facility] unknown) [facility] Result panel 152 (unknown) (no date) (unknown) Walk[facility]In (no value) (units ([facility] nown) Clinic [facility]) [facility] Result panel 153 (unknown) (no date) (unknown) Walk[facility]In (no value) (units (unk nown) Clinic [facility] unknown) [facility] Result panel 154 (unknown) (no date) (unknown) Walk-In (no value) (units (unk nown) [facility]) [facility] Result panel 155 (unknown) (no date) (unknown) Walk-In (no value) (units (unk nown) [facility]) [facility] Result panel 156 (unknown) (no date) (unknown) Walk-In (no value) (units (unk nown) Clinic Primary unknown) [facility] Result panel 157 (unknown) (no date) (unknown) Walk-In (no value) (units (unk nown) Clinic Primary unknown) [facility] Result panel 158 (unknown) (no date) (unknown) Walk-In (no value) (units (unk nown) Clinic Primary unknown) [facility] Result panel 159 (unknown) (no date) (unknown) Walk-In (no value) (units (unk nown) Clinic Primary unknown) [facility] Result panel 160 (unknown) (no date) (unknown) Walk-In (no value) (units (unk nown) Clinic Primary unknown) [facility] Result panel 161 (unknown) (no date) (unknown) Walk-In (no value) (units (unk nown) [facility] Primary unknown) [facility] Result panel 162 (unknown) (no date) (unknown) Walk-In (no value) (units (unk nown) Clinic Primary unknown) [facility] Result panel 163 (unknown) (no date) (unknown) Walk-In (no value) (units (unk nown) Clinic Primary unknown) [facility] Result panel 164 (unknown) (no date) (unknown) Walk-In (no value) (units (unk nown) Clinic Primary unknown) [facility] Result panel 165 (unknown) (no date) (unknown) Walk-In (no value) (units (unk nown) [facility] Primary unknown) [facility] Result panel 166 (unknown) (no date) (unknown) Walk-In (no value) (units (unk nown) Clinic Primary unknown) [facility] Result panel 167 (unknown) (no date) (unknown) Walk-In (no value) (units (unk nown) [facility] unknown) [facility] Result panel 168 (unknown) (no date) (unknown) Walk-In (no value) (units (unk nown) [facility] Primary unknown) [facility] Result panel 169 (unknown) (no date) (unknown) Walk-In (no value) (units (unk nown) Clinic Primary unknown) [facility] Result panel 170 (unknown) (no date) (unknown) Walk-In (no value) (units (unk nown) Clinic Primary unknown) [facility] Result panel 171 (unknown) (no date) (unknown) Walk-In (no value) (units (unk nown) Clinic Primary unknown) [facility] Result panel 172 (unknown) (no date) (unknown) Walk-In (no value) (units (unk nown) Clinic Primary unknown) [facility] Result panel 173 (unknown) (no date) (unknown) Walk-In (no value) (units ([facility] nown) [facility] Primary unknown) [facility] Result panel 174 (unknown) (no date) (unknown) Walk-In (no value) (units (unk nown) Clinic Primary unknown) [facility] Result panel 175 (unknown) (no date) (unknown) Walk-In (no value) (units (unk nown) Clinic Primary unknown) [facility] Result panel 176 (unknown) (no date) (unknown) Walk-In (no value) (units (unk nown) Clinic Primary unknown) [facility] Result panel 177 (unknown) (no date) (unknown) Walk-In (no value) (units (unk nown) Clinic Primary unknown) [facility] Result panel 178 (unknown) (no date) (unknown) Walk-In (no value) (units (unk nown) Clinic Primary unknown) [facility] Result panel 179 (unknown) (no date) (unknown) Walk-In (no value) (units (unk nown) Clinic Primary unknown) [facility] Result panel 180 (unknown) (no date) (unknown) Walk-In (no value) (units (unk nown) Clinic Primary unknown) [facility] Result panel 181 (unknown) (no date) (unknown) Walk-In (no value) (units (unk nown) [facility] Primary unknown) [facility] Result panel 182 (unknown) (no date) (unknown) Walk-In (no value) (units (unk nown) Clinic Primary unknown) [facility] Result panel 183 (unknown) (no date) (unknown) Walk-In (no value) (units (unk nown) [facility] Primary unknown) [facility] Result panel 184 (unknown) (no date) (unknown) Walk-In (no value) (units (unk nown) Clinic Primary unknown) [facility] Result panel 185 (unknown) (no date) (unknown) Walk-In (no value) (units (unk nown) [facility] unknown) [facility] Result panel 186 (unknown) (no date) (unknown) Walk-In (no value) (units (unk nown) [facility] Primary unknown) [facility] Result panel 187 (unknown) (no date) (unknown) Walk-In (no value) (units (unk nown) Clinic Primary unknown) [facility] Result panel 188 (unknown) (no date) (unknown) Walk-In (no value) (units (unk nown) Clinic Primary unknown) [facility] Result panel 189 (unknown) (no date) (unknown) Walk-In (no value) (units (unk nown) Clinic Primary unknown) [facility] Result panel 190 (unknown) (no date) (unknown) Walk-In (no value) (units (unk nown) Clinic Primary unknown) [facility] Result panel 191 (unknown) (no date) (unknown) Walk-In (no value) (units (unk nown) Clinic Primary unknown) [facility] Result panel 192 (unknown) (no date) (unknown) Walk-In (no value) (units (unk nown) [facility] Primary unknown) [facility] Result panel 193 (unknown) (no date) (unknown) Walk-In (no value) (units (unk nown) Clinic Primary unknown) [facility] Result panel 194 (unknown) (no date) (unknown) Walk-In (no value) (units (unk nown) Clinic Primary unknown) [facility] Result panel 195 (unknown) (no date) (unknown) Walk-In (no value) (units (unk nown) [facility] Primary unknown) [facility] Result panel 196 (unknown) (no date) (unknown) Walk-In (no value) (units (unk nown) Clinic Primary unknown) [facility] Result panel 197 (unknown) (no date) (unknown) Walk-In (no value) (units (unk nown) [facility] Primary unknown) [facility] Result panel 198 (unknown) (no date) (unknown) Walk-In (no value) (units (unk nown) [facility] Primary unknown) [facility] Result panel 199 (unknown) (no date) (unknown) Walk-In (no value) (units (unk nown) Clinic Primary unknown) [facility] Result panel 200 (unknown) (no date) (unknown) Walk-In (no value) (units (unk nown) [facility] Primary unknown) [facility] Result panel 201 (unknown) (no date) (unknown) Walk-In (no value) (units (unk nown) Clinic Primary unknown) [facility] Result panel 202 (unknown) (no date) (unknown) Walk-In (no value) (units (unk nown) [facility] Primary unknown) [facility] Result panel 203 (unknown) (no date) (unknown) Walk-In (no value) (units (unk nown) [facility] Primary unknown) [facility] Result panel 204 (unknown) (no date) (unknown) Walk-In (no value) (units (unk nown) [facility] Primary unknown) [facility] Result panel 205 (unknown) (no date) (unknown) Walk-In (no value) (units (unk nown) [facility] Primary unknown) [facility] Result panel 206 (unknown) (no date) (unknown) Walk-In (no value) (units (unk nown) [facility] Primary unknown) [facility] Result panel 207 (unknown) (no date) (unknown) Walk-In (no value) (units (unk nown) Clinic Primary unknown) [facility] Result panel 208 (unknown) (no date) (unknown) Walk-In (no value) (units (unk nown) Clinic Primary unknown) [facility] Result panel 209 (unknown) (no date) (unknown) Walk-In (no value) (units (unk nown) Clinic Primary unknown) [facility] Result panel 210 (unknown) (no date) (unknown) Walk-In (no value) (units (unk nown) Clinic Primary unknown) [facility] Result panel 211 (unknown) (no date) (unknown) Walk-In (no value) (units (unk nown) Clinic Primary unknown) [facility] Result panel 212 (unknown) (no date) (unknown) Walk-In (no value) (units (unk nown) Clinic Primary unknown) [facility] Result panel 213 (unknown) (no date) (unknown) Walk-In (no value) (units (unk nown) Clinic Primary unknown) [facility] Result panel 214 (unknown) (no date) (unknown) [facility]no value[facility] Result panel 215 (unknown) (no date) (unknown) [facility]no value[facility] Result panel 216 (unknown) (no date) (unknown) [facility]no value) [facility] Result panel 217 (unknown) (no date) (unknown) [facility]no value[facility] Result panel 218 (unknown) (no date) (unknown) [facility] (no value) [facility] Result panel 219 (unknown) (no date) (unknown) [facility] (no value) [facility] Result panel 220 (unknown) (no date) (unknown) [facility] (no value) [facility] Result panel 221 (unknown) (no date) (unknown) [facility] (no value) [facility] Result panel 222 (unknown) (no date) (unknown) [facility] (no value) [facility] Result panel 223 (unknown) (no date) (unknown) [facility] (no value) [facility] Result panel 224 (unknown) (no date) (unknown) [facility] (no value) [facility] Result panel 225 (unknown) (no date) (unknown) [facility] (no value) [facility] Result panel 226 (unknown) (no date) (unknown) [facility] (no value) [facility] Result panel 227 (unknown) (no date) (unknown) [facility] (no value) [facility] Result panel 228 (unknown) (no date) (unknown) [facility] (no value) [facility] Result panel 229 (unknown) (no date) (unknown) [facility] (no value) [facility] Result panel 230 (unknown) (no date) (unknown) [facility] (no value) [facility] Result panel 231 (unknown) (no date) (unknown) [facility] (no value) [facility] Result panel 232 (unknown) (no date) (unknown) [facility] (no value) [facility] Result panel 233 (unknown) (no date) (unknown) [facility] (no value) [facility] Result panel 234 (unknown) (no date) (unknown) [facility] (no value) [facility] Result panel 235 (unknown) (no date) (unknown) [facility] (no value) [facility] Result panel 236 (unknown) (no date) (unknown) [facility] (no value) [facility] Result panel 237 (unknown) (no date) (unknown) [facility] (no value) [facility] Result panel 238 (unknown) (no date) (unknown) [facility] (no value) [facility] Result panel 239 (unknown) (no date) (unknown) [facility] (no value) [facility] Result panel 240 (unknown) (no date) (unknown) [facility] (no value) [facility] Result panel 241 (unknown) (no date) (unknown) [facility] (no value) [facility] Result panel 242 (unknown) (no date) (unknown) [facility] (no value) [facility] Result panel 243 (unknown) (no date) (unknown) [facility] (no value) [facility] Result panel 244 (unknown) (no date) (unknown) [facility] (no value) [facility] Result panel 245 (unknown) (no date) (unknown) [facility] (no value) [facility] Result panel 246 (unknown) (no date) (unknown) [facility] (no value) [facility] Result panel 247 (unknown) (no date) (unknown) [facility] (no value) [facility] Result panel 248 (unknown) (no date) (unknown) [facility] (no value) [facility] Result panel 249 (unknown) (no date) (unknown) [facility] (no value) [facility] Result panel 250 (unknown) (no date) (unknown) [facility] (no value) [facility] Result panel 251 (unknown) (no date) (unknown) [facility] (no value) [facility] Result panel 252 (unknown) (no date) (unknown) [facility] (no value) [facility] Result panel 253 (unknown) (no date) (unknown) [facility] (no value) [facility] Result panel 254 (unknown) (no date) (unknown) [facility] (no value) [facility] Result panel 255 (unknown) (no date) (unknown) [facility] (no value) [facility] Result panel 256 (unknown) (no date) (unknown) [facility] (no value) [facility] Result panel 257 (unknown) (no date) (unknown) [facility] (no value) [facility] Result panel 258 (unknown) (no date) (unknown) [facility] (no value) [facility] Result panel 259 (unknown) (no date) (unknown) [facility] (no value) [facility] Result panel 260 (unknown) (no date) (unknown) [facility] (no value) [facility] Result panel 261 (unknown) (no date) (unknown) [facility] (no value) [facility] Result panel 262 (unknown) (no date) (unknown) [facility] (no value) [facility] Result panel 263 (unknown) (no date) (unknown) [facility] (no value) [facility] Result panel 264 (unknown) (no date) (unknown) [facility] (no value) [facility] Result panel 265 (unknown) (no date) (unknown) [facility] (no value) [facility] Result panel 266 (unknown) (no date) (unknown) [facility] (no value) [facility] Result panel 267 (unknown) (no date) (unknown) [facility] (no value) [facility] Result panel 268 (unknown) (no date) (unknown) [facility] (no value) [facility] Result panel 269 (unknown) (no date) (unknown) [facility] (no value) [facility] Result panel 270 (unknown) (no date) (unknown) [facility] (no value) [facility] Result panel 271 (unknown) (no date) (unknown) [facility] (no value) [facility] Result panel 272 (unknown) (no date) (unknown) [facility] (no value) [facility] Result panel 273 (unknown) (no date) (unknown) [facility] (no value) [facility] Result panel 274 (unknown) (no date) (unknown) [facility] (no value) [facility] Result panel 275 (unknown) (no date) (unknown) [facility] (no value) [facility] Result panel 276 (unknown) (no date) (unknown) [facility] (no value) [facility] Result panel 277 (unknown) (no date) (unknown) [facility] (no value) [facility] Result panel 278 (unknown) (no date) (unknown) [facility] (no value) [facility] Result panel 279 (unknown) (no date) (unknown) [facility] (no value) [facility] Result panel 280 (unknown) (no date) (unknown) [facility] (no value) [facility] Result panel 281 (unknown) (no date) (unknown) [facility] (no value) [facility] Result panel 282 (unknown) (no date) (unknown) [facility] (no value) [facility] Result panel 283 (unknown) (no date) (unknown) [facility] (no value) [facility] Result panel 284 (unknown) (no date) (unknown) [facility] (no value) [facility] Result panel 285 (unknown) (no date) (unknown) [facility] (no value) [facility] Result panel 286 (unknown) (no date) (unknown) [facility] (no value) [facility] Result panel 287 (unknown) (no date) (unknown) [facility] (no value) [facility] Result panel 288 (unknown) (no date) (unknown) [facility] (no value) [facility] Result panel 289 (unknown) (no date) (unknown) [facility] (no value) [facility] Result panel 290 (unknown) (no date) (unknown) [facility] (no value) [facility] Result panel 291 (unknown) (no date) (unknown) [facility] (no value) [facility] Result panel 292 (unknown) (no date) (unknown) [facility] (no value) [facility] Result panel 293 (unknown) (no date) (unknown) [facility] (no value) [facility] Result panel 294 (unknown) (no date) (unknown) [facility] (no value) [facility] Result panel 295 (unknown) (no date) (unknown) [facility] (no value) [facility] Result panel 296 (unknown) (no date) (unknown) [facility] (no value) [facility] Result panel 297 (unknown) (no date) (unknown) [facility] (no value) [facility] Result panel 298 (unknown) (no date) (unknown) [facility] (no value) [facility] Result panel 299 (unknown) (no date) (unknown) [facility] (no value) [facility] Result panel 300 (unknown) (no date) (unknown) [facility] (no value) [facility] Result panel 301 (unknown) (no date) (unknown) [facility] (no value) [facility] Result panel 302 (unknown) (no date) (unknown) [facility] (no value) [facility] Result panel 303 (unknown) (no date) (unknown) [facility] (no value) [facility] Result panel 304 (unknown) (no date) (unknown) [facility] (no value) [facility] Result panel 305 (unknown) (no date) (unknown) [facility] (no value) [facility] Result panel 306 (unknown) (no date) (unknown) [facility] (no value) [facility] Result panel 307 (unknown) (no date) (unknown) [facility] (no value) [facility] Result panel 308 (unknown) (no date) (unknown) [facility] (no value) [facility] Result panel 309 (unknown) (no date) (unknown) [facility] (no value) [facility] Result panel 310 (unknown) (no date) (unknown) [facility] (no value) [facility] Result panel 311 (unknown) (no date) (unknown) [facility] (no value) [facility] Result panel 312 (unknown) (no date) (unknown) [facility] (no value) [facility] Result panel 313 (unknown) (no date) (unknown) [facility] (no value) [facility] Result panel 314 (unknown) (no date) (unknown) [facility] (no value) [facility] Result panel 315 (unknown) (no date) (unknown) [facility] (no value) [facility] Result panel 316 (unknown) (no date) (unknown) [facility] (no value) [facility] Result panel 317 (unknown) (no date) (unknown) [facility] (no value) [facility] Result panel 318 (unknown) (no date) (unknown) [facility] (no value) [facility] Result panel 319 (unknown) (no date) (unknown) [facility] (no value) [facility] Result panel 320 (unknown) (no date) (unknown) [facility] (no value) [facility] Result panel 321 (unknown) (no date) (unknown) [facility] (no value) [facility] Result panel 322 (unknown) (no date) (unknown) [facility] (no value) [facility] Result panel 323 (unknown) (no date) (unknown) [facility] (no value) [facility] Result panel 324 (unknown) (no date) (unknown) [facility] (no value) [facility] Result panel 325 (unknown) (no date) (unknown) [facility] (no value) [facility] Result panel 326 (unknown) (no date) (unknown) [facility] (no value) [facility] Result panel 327 (unknown) (no date) (unknown) [facility] (no value) [facility] Result panel 328 (unknown) (no date) (unknown) [facility] (no value) [facility] Result panel 329 (unknown) (no date) (unknown) [facility] (no value) [facility] Result panel 330 (unknown) (no date) (unknown) [facility] (no value) [facility] Result panel 331 (unknown) (no date) (unknown) [facility] (no value) [facility] Result panel 332 (unknown) (no date) (unknown) [facility] (no value) [facility] Result panel 333 (unknown) (no date) (unknown) [facility] (no value) [facility] Result panel 334 (unknown) (no date) (unknown) [facility] (no value) [facility] Result panel 335 (unknown) (no date) (unknown) [facility] (no value) [facility] Result panel 336 (unknown) (no date) (unknown) [facility] (no value) [facility] Result panel 337 (unknown) (no date) (unknown) [facility] (no value) [facility] Result panel 338 (unknown) (no date) (unknown) [facility] (no value) [facility] Result panel 339 (unknown) (no date) (unknown) [facility] (no value) [facility] Result panel 340 (unknown) (no date) (unknown) [facility] (no value) [facility] Result panel 341 (unknown) (no date) (unknown) [facility] (no value) [facility] Result panel 342 (unknown) (no date) (unknown) [facility] (no value) [facility] Result panel 343 (unknown) (no date) (unknown) [facility] (no value) [facility] Result panel 344 (unknown) (no date) (unknown) [facility] (no value) [facility] Result panel 345 (unknown) (no date) (unknown) [facility] (no value) [facility] Result panel 346 (unknown) (no date) (unknown) [facility] (no value) [facility] Result panel 347 (unknown) (no date) (unknown) [facility] (no value) [facility] Result panel 348 (unknown) (no date) (unknown) [facility] (no value) [facility] Result panel 349 (unknown) (no date) (unknown) [facility] (no value) [facility] Result panel 350 (unknown) (no date) (unknown) [facility] (no value) [facility] Result panel 351 (unknown) (no date) (unknown) [facility] (no value) [facility] Result panel 352 (unknown) (no date) (unknown) [facility] (no value) [facility] Result panel 353 (unknown) (no date) (unknown) [facility] (no value) [facility] Result panel 354 (unknown) (no date) (unknown) [facility] (no value) [facility] Result panel 355 (unknown) (no date) (unknown) [facility] (no value) [facility] Result panel 356 (unknown) (no date) (unknown) [facility] (no value) [facility] Result panel 357 (unknown) (no date) (unknown) [facility] (no value) [facility] Result panel 358 (unknown) (no date) (unknown) [facility] (no value) [facility] Result panel 359 (unknown) (no date) (unknown) [facility] (no value) [facility] Result panel 360 (unknown) (no date) (unknown) [facility] (no value) [facility] Result panel 361 (unknown) (no date) (unknown) [facility] (no value) [facility] Result panel 362 (unknown) (no date) (unknown) [facility] (no value) [facility] Result panel 363 (unknown) (no date) (unknown) [facility] (no value) [facility] Result panel 364 (unknown) (no date) (unknown) [facility] (no value) [facility] Result panel 365 (unknown) (no date) (unknown) [facility] (no value) [facility] Result panel 366 (unknown) (no date) (unknown) [facility] (no value) [facility] Result panel 367 (unknown) (no date) (unknown) [facility] (no value) [facility] Result panel 368 (unknown) (no date) (unknown) [facility] (no value) [facility] Result panel 369 (unknown) (no date) (unknown) [facility] (no value) [facility] Result panel 370 (unknown) (no date) (unknown) [facility] (no value) [facility] Result panel 371 (unknown) (no date) (unknown) [facility] (no value) [facility] Result panel 372 (unknown) (no date) (unknown) [facility] (no value) [facility] Result panel 373 (unknown) (no date) (unknown) [facility] (no value) [facility] Result panel 374 (unknown) (no date) (unknown) [facility] (no value) [facility] Result panel 375 (unknown) (no date) (unknown) [facility] (no value) [facility] Result panel 376 (unknown) (no date) (unknown) [facility] (no value) [facility] Result panel 377 (unknown) (no date) (unknown) [facility] (no value) [facility] Result panel 378 (unknown) (no date) (unknown) [facility] (no value) [facility] Result panel 379 (unknown) (no date) (unknown) [facility] (no value) [facility] Result panel 380 (unknown) (no date) (unknown) [facility] (no value) [facility] Result panel 381 (unknown) (no date) (unknown) [facility] (no value) [facility] Result panel 382 (unknown) (no date) (unknown) [facility] (no value) [facility] Result panel 383 (unknown) (no date) (unknown) Walk-[facility] (no value) (units ([facility] nown[facility] unknown[facility] Result panel 384 (unknown) (no date) (unknown) Walk-In (no value) (units ([facility] nown) Clinic Primary unknown) [facility] Result panel 385 (unknown) (no date) (unknown) Walk-In (no value) (units ([facility] nown) [facility] Primary unknown) [facility] Result panel 386 (unknown) (no date) (unknown) Walk-In (no value) (units ([facility] nown) [facility] Primary unknown) [facility] Result panel 387 (unknown) (no date) (unknown) Walk-In (no value) (units ([facility] nown) [facility] Primary unknown) [facility] Result panel 388 (unknown) (no date) (unknown) Walk-In (no value) (units ([facility] nown) [facility] unknown) [facility] Result panel 389 (unknown) (no date) (unknown) Walk-In (no value) (units ([facility] nown) [facility] Primary unknown) [facility] Result panel 390 (unknown) (no date) (unknown) Walk-In (no value) (units ([facility] nown) [facility] unknown) [facility] Result panel 391 (unknown) (no date) (unknown) Walk[facility]In (no value) (units ([facility] nown) Clinic Primary unknown) [facility] Result panel 392 (unknown) (no date) (unknown) Walk-In (no value) (units ([facility] nown) [facility] Primary unknown) [facility] Result panel 393 (unknown) (no date) (unknown) Walk-In (no value) (units ([facility] nown) [facility] Primary unknown) [facility] Result panel 394 (unknown) (no date) (unknown) Walk-In (no value) (units ([facility] nown) [facility] Primary unknown) [facility] Result panel 395 (unknown) (no date) (unknown) Walk-In (no value) (units ([facility] nown) [facility] Primary unknown) [facility] Result panel 396 (unknown) (no date) (unknown) Walk-In (no value) (units ([facility] nown) [facility] Primary unknown) [facility] Result panel 397 (unknown) (no date) (unknown) Walk-In (no value) (units ([facility] nown) [facility] Primary unknown) [facility] Result panel 398 (unknown) (no date) (unknown) Walk-In (no value) (units ([facility] nown) [facility] unknown) [facility] Result panel 399 (unknown) (no date) (unknown) Walk-In (no value) (units ([facility] nown) [facility] Primary unknown) [facility] Result panel 400 (unknown) (no date) (unknown) Walk-In (no value) (units ([facility] nown) [facility] unknown) [facility] Result panel 401 (unknown) (no date) (unknown) Walk-In (no value) (units ([facility] nown) [facility] unknown) [facility] Social History date description facility 2023-01-15 00:00 Former smoker [facility] Vital Signs date measurement value units 2023-01-15 [...]
[2023-01-22] MEDS ORDERED: MORPHINE 2 MG/ML CARPUJECT IM STA (03:03)
--- NOTE | 2023-01-22 03:12 | ED Physician Documentation ---
History of Present Illness - Stated complaint Stated Complaint: BACK PX - Chief complaint Chief Complaint: Back Pain - History obtained from History obtained from: Patient - Additonal information Additional information: 82yM p/w back pain for the past ten days s/p mechanical fall on back. taking tramadol at home without relief. unable to sleep tonight. Review of Systems Musculoskeletal: reports: Back pain PD PAST MEDICAL HISTORY - Past Medical History Cardiovascular: Hypertension, High cholesterol, ID, Atrial fibrillation Neuro: Dementia Endocrine/Autoimmune: Type 2 diabetes : Benign prostate hypertrophy Musculoskeletal: Osteoarthritis - Past Surgical History Past Surgical History: Yes Ortho: Hip replacement, Knee replacement - Present Medications Home Medications: Ambulatory Orders Medication Instructions Recorded Confirmed cephALEXin [Keflex] 500 mg PO Q6H #28 cap 08/15/21 Apixaban [Eliquis] 5 mg PO BID 06/05/22 06/05/22 Atorvastatin Calcium 40 mg PO DAILY 06/05/22 06/05/22 Finasteride [Proscar] 5 mg PO DAILY 06/05/22 06/05/22 Isosorbide Mononitrate [Isosorbide 60 mg PO DAILY 06/05/22 06/05/22 Mononitrate ER] Losartan Potassium [Cozaar] 100 mg PO DAILY 06/05/22 06/05/22 Metoprolol Succinate [Toprol Xl] 200 mg PO DAILY 06/05/22 06/05/22 Tamsulosin [Flomax] 0.4 mg PO DAILY 06/05/22 06/05/22 glipiZIDE [Glipizide ER] 2.5 mg PO DAILY 06/05/22 06/05/22 hydroCHLOROthiazide [Hydrodiuril] 25 mg PO DAILY 06/05/22 06/05/22 Empagliflozin [Jardiance] 25 mg PO DAILY 01/15/23 01/15/23 - Allergies Allergies/Adverse Reactions: Allergies Allergy/AdvReac Type Severity Reaction Status Date / Time No Known Drug Allergies Allergy Verified 01/15/23 16:13 - Social History Does the pt smoke?: No Smoking Status: Never smoker Does the pt drink ETOH?: No Does the pt have substance abuse?: No - Immunizations Immunizations are current?: Yes - POLST Patient has POLST: No PD ED PE NORMAL - Vitals Vital signs reviewed: Yes - General General: Alert and oriented X 3, No acute distress, Well developed/nourished - HEENT HEENT: Atraumatic, PERRL, EOMI - Cardiac Cardiac: RRR - Respiratory Respiratory: No respiratory distress, Clear bilaterally - Abdomen Abdomen: Non tender, Non distended - Back Back: Other (lower thoracic spine/upper lumbar spine ttp) - Derm Derm: Normal color, Warm and dry Results - Vitals Vitals: Vital Signs - 24 hr 01/22/23 01/22/23 01:34 01:38 Temperature 36.5 C Heart Rate 52 L Respiratory 18 Rate Blood Pressure 126/64 O2 Saturation 97 Oxygen O2 Source Room air PD Medical Decision Making - ED course ED course: 82yM p/w thoracic/lumbar pain s/p fall 10 days ago. Xrays of t and L spine show t12 compression deformity per my interpretation and independent interpretation of outside radiologist. IM morphine provided with relief. plan to f/u with pcp for referral to pt. return precautions given. Departure - Departure Disposition: 01 Home, Self Care Clinical Impression: Back pain Condition: Stable Instructions: ED Low Back Pain Injury Comments: You have a compression fracture of T12 and will benefit from physical therapy. Please follow-up with your primary care provider for referral. Return to the emergency department for new or worsening symptoms or other concerns.
[2023-01-22 04:39] VITALS: BP 120/64
--- NOTE | 2023-01-22 08:11 | XRAY Report ---
PROCEDURE: Thoracic Spine 2 View INDICATIONS: back pain TECHNIQUE: 3 views of the thoracic spine were acquired. COMPARISON: None. FINDINGS: Bones: Age-indeterminate in superior endplate compression deformity involving T12 vertebral body with up to 30 % loss of T12 vertebral body height. No other compression fracture. Degenerative endplate changes are noted throughout thoracic spine. No suspicious bony lesions. 12 pairs of ribs are noted, and appear intact where visualized. Soft tissues: No paravertebral stripe thickening. IMPRESSION: Age-indeterminate and superior endplate compression deformity at T12 level as above. 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 Reviewed by: Luis Manuel Zhang MD on 01/22/2023 8:10 AM PDT Approved by: Luis Manuel Zhang MD on 01/22/2023 8:10 AM PDT Station ID: [id number]
--- NOTE | 2023-01-22 08:14 | XRAY Report ---
PROCEDURE: Lumbar Spine 2 View INDICATIONS: back pain s/p fall 10d ago TECHNIQUE: 3 views of the lumbar spine were acquired. COMPARISON: 01/15/2023 FINDINGS: Bones: 12 [id number] vertebrae are present. There is normal bony alignment. There is a new com pression deformity of the T12 vertebral body, without endplate retropulsion. Soft tissues: Overlying bowel gas pattern is normal. No suspicious soft tissue calcifications. IMPRESSION: New compression deformity of the T12 vertebral body, without endplate retropulsion. Reviewed by: Benito Lew on 01/22/2023 8:12 AM PDT Approved by: Benito Lew on 01/22/2023 8:12 AM PDT Station ID: [id number]
== END 2023-01-22 04:39 | disposition home or self-care (01) ==
LOC: ED 00:34
DX: M54.50 Low back pain, unspecified (principal); M54.6 Pain in thoracic spine; W19.XXXA Unspecified fall, initial encounter; I10 Essential (primary) hypertension; E78.00 Pure hypercholesterolemia, unspecified; E11.9 Type 2 diabetes mellitus without complications; I48.91 Unspecified atrial fibrillation; Z79.01 Long term (current) use of anticoagulants; Z79.899 Other long term (current) drug therapy; Z79.84 Long term (current) use of oral hypoglycemic drugs
CPT/HCPCS: 96372; 99283

== ENCOUNTER 2023-01-24 22:47 | Outpatient (CLI) | payer MEDICARE, OTHER | END 2023-01-24 23:59 | disposition critical access hospital (66) | LOC: EMS 22:47 | DX: R10.30 Lower abdominal pain, unspecified (principal); M54.50 Low back pain, unspecified; R19.5 Other fecal abnormalities; R19.8 Other specified symptoms and signs involving the digestive system and abdomen | CPT/HCPCS: A0425; A0429 ==

== ENCOUNTER 2023-01-24 23:23 | Emergency (ER) | payer MEDICARE, OTHER ==
--- OUTSIDE RECORDS SUMMARY | 2023-01-24 23:46 | EXTERNAL MEDICAL SUMMARY RPT | Continuity of Care Document ---
:1940 Author Organization [facility] Address [address] [place] [address] Phone Care Team Providers Name Role Phone Unavailable Unavailable Unavailable Chintan James Md Unavailable Unavailable Marly Patient Registrar, Anjali Unavailable Unav ailable Allergies No information. Encounters No information. Functional Status No information. Immunizations No information. Medications date description facility 2023-01-15 00:00 apixaban [facility] 2023-01-16 00:00 apixaban [facility] 2023-01-15 00:00 tramadol [facility] 2023-01-15 00:00 hydrochlorothiazide Walk[facility]In [facility] 2023-01-15 00:00 hydrochlorothiazide Walk[facility]In [facility] 2023-01-16 00:00 hydrochlorothiazide Walk[facility]In [facility] 2023-01-15 00:00 oxycodone [facility] 2023-01-15 00:00 oxycodone [facility] 2023-01-16 00:00 oxycodone [facility] 2023-01-15 00:00 empagliflozin [facility] 2023-01-16 00:00 empagliflozin [facility] 2023-01-15 00:00 blood-glucose meter Walk[facility]In [facility] 2023-01-15 00:00 blood-glucose meter Walk[facility] 2023-01-16 00:00 blood-glucose meter Walk[facility]In [facility] 2023-01-15 00:00 blood-glucose meter Walk[facility] 2023-01-15 00:00 blood-glucose meter Walk[facility]In [facility] 2023-01-16 00:00 blood-glucose meter Walk[facility] 2023-01-15 00:00 hydrochlorothiazide Walk[facility]In [facility] 2023-01-15 00:00 hydrochlorothiazide Walk[facility] 2023-01-16 00:00 hydrochlorothiazide Walk[facility]In [facility] 2023-01-15 00:00 [facility] 2023-01-15 00:00 alcohol swabs [facility] 2023-01-16 00:00 alcohol swabs [facility] 2023-01-15 00:00 oxycodone [facility] 2023-01-15 00:00 oxycodone [facility] 2023-01-16 00:00 oxycodone [facility] 2023-01-15 00:00 docusate calcium [facility] 2023-01-15 00:00 docusate calcium [facility] 2023-01-16 00:00 docusate calcium [facility] 2023-01-15 00:00 apixaban [facility] 2023-01-16 00:00 apixaban [facility] 2023-01-15 00:00 empagliflozin [facility] 2023-01-16 00:00 empagliflozin [facility] 2023-01-15 00:00 naloxone [facility] 2023-01-15 00:00 naloxone [facility] 2023-01-16 00:00 naloxone [facility] 2023-01-15 00:00 apixaban [facility] 2023-01-16 00:00 apixaban [facility] 2023-01-15 00:00 blood-glucose meter Walk[facility]In [facility] 2023-01-15 00:00 blood-glucose meter Walk[facility]In [facility] 2023-01-16 00:00 blood-glucose meter Walk[facility]In [facility] 2023-01-15 [...] [facility] 2023-01-15 00:00 blood-glucose meter Walk[facility]In [facility] 2023-01-15 00:00 blood-glucose meter Walk[facility]In [facility] 2023-01-16 00:00 blood-glucose meter Walk[facility]In [facility] 2023-01-15 [...] [facility] 2023-01-15 00:00 aspirin Walk-In [facility] [...] Services [facility] 2023-01-15 00:00 lidocaine Walk-In Clinic [facility] 2023-01-15 00:00 lidocaine Walk[facility]In [facility] 2023-01-16 00:00 lidocaine Walk[facility]In [facility] 2023-01-15 00:00 naloxone Walk[facility]In [facility] 2023-01-15 00:00 naloxone Walk[facility]In [facility] 2023-01-16 00:00 naloxone Walk[facility]In [facility] 2023-01-15 00:00 blood-glucose meter Walk[facility]In [facility] 2023-01-15 00:00 blood-glucose meter Walk[facility]In [facility] 2023-01-16 00:00 blood-glucose meter Walk[facility]In [facility] 2023-01-15 00:00 blood-glucose meter Walk[facility]In [facility] 2023-01-15 00:00 blood-glucose meter Walk[facility]In [facility] [place] 2023-01-16 00:00 blood-glucose meter Walk[facility]In [facility] 2023-01-15 00:00 alcohol swabs Walk-In [facility] 2023-01-15 00:00 alcohol swabs Walk[facility]In [facility] 2023-01-16 00:00 alcohol swabs Walk[facility] 2023-01-15 00:00 magnesium hydroxide Walk[facility]In [facility] 2023-01-15 00:00 magnesium hydroxide Walk[facility]In [facility] [place] 2023-01-16 00:00 magnesium hydroxide Walk[facility]In [facility] Problems date description facility 2023-01-15 00:00 Lumbar spondylosis Walk[facility]In [facility] 2023-01-15 00:00 Low back strain Walk[facility]In [facility] 2023-01-15 00:00 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Walk[facility] & without mention of myelopathy [facility]illary [facility] 2023-01-15 00:00 Lumbar sprain [facility] 2023-01-15 00:00 Other spondylosis, lumbar region Walk- In [facility] & [facility] Services [facility] 2023-01-15 00:00 Strain of muscle, fascia and Walk-In [facility] Primary Care & tendon of lower back, initial Ancillary Services [facility] encounter Procedures date description facility 2023-01-15 00:00 Visit Code Hold Walk-In [facility] 2023-01-15 00:00 XR LUMBAR SPINE 2 OR 3 VIEW Walk-In [facility] Primary Care & Ancillary Services [facility] Results/Labs test date author facility value unit [...] Clinic Primary unknown) [facility] Result panel 75 (unknown) (no date) (unknown) [...] Clinic Primary unknown) [facility] Result panel 92 (unknown) (no date) (unknown) [...] Clinic Primary unknown) [facility] Result panel 129 (unknown) (no date) (unknown) [...] Clinic Primary unknown) [facility] Result panel 207 (unknown) (no date) (unknown) [...] Clinic Primary unknown) [facility] Result panel 269 (unknown) (no date) (unknown) [...] Clinic Primary unknown) [facility] Result panel 394 (unknown) (no date) (unknown) [...]
[2023-01-25 00:46] LABS: BASOPHILS % (AUTO) 0.2 %; EOSINOPHILS # (AUTO) 0.1 10^3/uL (0.0-0.7); EOSINOPHILS % (AUTO) 1.3 %; HCT - HEMATOCRIT 25.3 % (42.0-52.0); HGB - HEMOGLOBIN 7.8 g/dL (14.0-18.0); LYMPHOCYTES # (AUTO) 1.3 10^3/uL (1.5-3.5); MEAN CORPUSCULAR HEMOGLOBIN 24.5 pg (27.0-31.0); MEAN CORPUSCULAR HGB CONC 30.8 g/dL (32.0-36.0); MEAN CORPUSCULAR VOLUME 79.6 fL (80.0-94.0); MEAN PLATELET VOLUME 10.5 fL (7.4-11.4); MONOCYTES # (AUTO) 0.7 10^3/uL (0.0-1.0); MONOCYTES % (AUTO) 13.9 %; NEUTROPHILS # (AUTO) 3.1 10^3/uL (1.5-6.6); NEUTROPHILS % (AUTO) 59.6 %; PLT - PLATELET COUNT 177 10^3/uL (130-450); RED BLOOD COUNT 3.18 10^6/uL (4.70-6.10); RED CELL DISTRIBUTION WIDTH 16.1 % (12.0-15.0); WHITE BLOOD COUNT 5.3 x10^3/uL (4.8-10.8)
[2023-01-25 01:05] LABS: BILIRUBIN,URINE NEGATIVE (NEGATIVE); GLUCOSE, URINE (UA) 500 mg/dL (NEGATIVE); KETONES,URINE (UA) NEGATIVE (NEGATIVE); LEUKOCYTE ESTERASE, URINE TRACE (NEGATIVE); NITRITE,URINE NEGATIVE (NEGATIVE); OCCULT BLOOD,URINE NEGATIVE (NEGATIVE); PROTEIN,URINE NEGATIVE (NEGATIVE); UROBILINOGEN,URINE 0.2 (NORMAL) E.U./dL (NORMAL)
[2023-01-25 01:09] LABS: ALBUMIN 3.7 g/dL (3.2-5.5); ALBUMIN/GLOBULIN RATIO 1.1 (1.0-2.2); BILIRUBIN,TOTAL 0.4 mg/dL (0.2-1.0); CREATININE 1.7 mg/dL (0.6-1.2); POTASSIUM 3.6 mmol/L (3.5-5.0); TOTAL PROTEIN 7.2 g/dL (6.7-8.2)
[2023-01-25 01:14] LABS: CLARITY,URINE CLEAR (CLEAR)
[2023-01-25 01:16] LABS: BACTERIA,URINE Rare /HPF (None Seen); RBC,URINE 0-5 /HPF (0-5); SQUAMOUS EPITHELIAL CELL,UR FEW Squamous (<= Few); WBC,URINE 0-3 /HPF (0-3)
--- NOTE | 2023-01-25 03:11 | ED Physician Documentation ---
PD HPI ABD PAIN - Stated complaint Stated Complaint: ABD PAIN, TARRY STOOLS - Chief complaint Chief Complaint: Abd Pain - History obtained from History obtained from: Patient - Additional information Additional information: HPI from patient. Patient says he lost his balance approximately 5 days ago in his bathroom and has had mid/low back pain since that time. Pain is relieved with rest, exacerbated with movement. He says the pain is making it difficult to get up from sitting or lying down although he is slowly able to do so. He was T+R from this ED 2 days ago for same c/o and xrays demonstrated new T12 compression fracture. ED MD note from that visit indicates patient was taking tramadol.When I ask patient about this medication, he says he is taking tylenol; tramadol (which is the first medication on a hand-written list patient has with him) does not sound familiar to him. registered dietician note indicates patient c/o abdominal pain and black, tarry stool. Patient denies abdominal pain on my HPI although he notes recent constipation. He also denies tarry stool but says his stool has been black recently (cannot elaborate on time frame) Review of Systems Constitutional: denies: Fever Cardiac: reports: Reviewed and negative Respiratory: reports: Reviewed and negative GI: reports: Constipation, Bloody / black stool. denies: Abdominal Pain, Nausea, Vomiting Musculoskeletal: reports: Back pain. denies: Neck pain, Extremity pain, Pain with weight bearing Neurologic: reports: Reviewed and negative PD PAST MEDICAL HISTORY - Past Medical History Cardiovascular: Hypertension, High cholesterol, [place], Atrial fibrillation Neuro: Dementia Endocrine/Autoimmune: Type 2 diabetes : Benign prostate hypertrophy Musculoskeletal: Osteoarthritis - Past Surgical History Past Surgical History: Yes Ortho: Hip replacement, Knee replacement - Present Medications Home Medications: Ambulatory Orders Medication Instructions Recorded Confirmed cephALEXin [Keflex] 500 mg PO Q6H #28 cap 08/15/21 Apixaban [Eliquis] 5 mg PO BID 06/05/22 06/05/22 Atorvastatin Calcium 40 mg PO DAILY 06/05/22 06/05/22 Finasteride [Proscar] 5 mg PO DAILY 06/05/22 06/05/22 Isosorbide Mononitrate [Isosorbide 60 mg PO DAILY 06/05/22 06/05/22 Mononitrate ER] Losartan Potassium [Cozaar] 100 mg PO DAILY 06/05/22 06/05/22 Metoprolol Succinate [Toprol Xl] 200 mg PO DAILY 06/05/22 06/05/22 Tamsulosin [Flomax] 0.4 mg PO DAILY 06/05/22 06/05/22 glipiZIDE [Glipizide ER] 2.5 mg PO DAILY 06/05/22 06/05/22 hydroCHLOROthiazide [Hydrodiuril] 25 mg PO DAILY 06/05/22 06/05/22 Empagliflozin [Jardiance] 25 mg PO DAILY 01/15/23 01/15/23 HYDROcod/ACETAM 5/325 [[place] 5/325] 1 tab PO Q6H PRN #14 tablet 01/25/23 - Allergies Allergies/Adverse Reactions: Allergies Allergy/AdvReac Type Severity Reaction Status Date / Time No Known Drug Allergies Allergy Verified 01/24/23 23:32 - Social History Does the pt smoke?: No Smoking Status: Never smoker Does the pt drink ETOH?: No Does the pt have substance abuse?: No - Immunizations Immunizations are current?: Yes - POLST Patient has POLST: No PD ED PE NORMAL - Vitals Vital signs reviewed: Yes - General General: Alert and oriented X 3, No acute distress (NAD at rest. patient is able to sit up from supine position, but mild/moderate painful discomfort when he does so), Well developed/nourished - Abdomen Abdomen: Soft, Non tender, Non distended - Back Back: No spinal TTP - Derm Derm: Normal color, Warm and dry - Extremities Extremities: No deformity, Normal ROM s pain, No edema - Neuro Neuro: Alert and oriented X 3, No motor deficit, No sensory deficit Results - Vitals Vitals: Oxygen O2 Source Room air - Labs Labs: Microbiology 01/25/23 00:57 Urine Culture - Final Urine,Clean Catch 10-50,000 COLONIES/ML Polymicrobial growth including potential pathogens. This is suggestive of skin or other contamination. Laboratory Tests 01/25/23 01/25/23 01/25/23 00:31 00:31 00:57 WBC 5.3 RBC 3.18 L Hgb 7.8 L Hct 25.3 L MCV 79.6 L MCH 24.5 L MCHC 30.8 L RDW 16.1 H Plt Count 177 MPV 10.5 Neut # (Auto) 3.1 Lymph # (Auto) 1.3 L [place] # (Auto) 0.7 Eos # (Auto) 0.1 Baso # (Auto) 0.0 Absolute Nucleated RBC 0.00 Nucleated RBC % 0.0 Sodium 131 L Potassium 3.6 Chloride 99 L Carbon Dioxide 21 Anion Gap 11.0 BUN 55 H Creatinine 1.7 H Estimated GFR (MDRD) 39 L Glucose 191 H Calcium 9.0 Total Bilirubin 0.4 AST 15 ALT 18 Alkaline Phosphatase 88 Total Protein 7.2 Albumin 3.7 Globulin 3.5 Albumin/Globulin Ratio 1.1 Lipase 39 Urine Color YELLOW Urine Clarity CLEAR Urine pH 6.0 Ur Specific [place] 1.010 Urine Protein NEGATIVE Urine Glucose (UA) 500 H Urine Ketones NEGATIVE Urine Occult Blood NEGATIVE Urine Nitrite NEGATIVE Urine Bilirubin NEGATIVE Urine Urobilinogen 0.2 (NORMAL) Ur Leukocyte Esterase TRACE H Urine RBC 0-5 Urine WBC 0-3 Ur Squamous Epith Cells FEW Squamous Urine Bacteria Rare Ur Microscopic Review INDICATED Urine Culture Comments INDICATED 01/25/23 05:47 WBC 4.4 L RBC 3.27 L Hgb 8.0 L Hct 26.2 L MCV 80.1 MCH 24.5 L MCHC 30.5 L RDW 16.3 H Plt Count 176 MPV 10.4 Neut # (Auto) 2.5 Lymph # (Auto) 1.3 L [place] # (Auto) 0.6 Eos # (Auto) 0.0 Baso # (Auto) 0.0 Absolute Nucleated RBC 0.00 Nucleated RBC % 0.0 Sodium Potassium Chloride Carbon Dioxide Anion Gap BUN Creatinine Estimated GFR (MDRD) Glucose Calcium Total Bilirubin AST ALT Alkaline Phosphatase Total Protein Albumin Globulin Albumin/Globulin Ratio Lipase Urine Color Urine Clarity Urine pH Ur Specific [place] Urine Protein Urine Glucose (UA) Urine Ketones Urine Occult Blood Urine Nitrite Urine Bilirubin Urine Urobilinogen Ur Leukocyte Esterase Urine RBC Urine WBC Ur Squamous Epith Cells Urine Bacteria Ur Microscopic Review Urine Culture Comments PD Medical Decision Making - ED course Complexity details: reviewed old records, reviewed results, re-evaluated patient, considered differential, d/w patient ED course: Initially, there is difficulty ascertaining patient's chief complaint (see HPI), but eventually it becomes apparent to me that patient is here for inadequate pain control of his back pain. His back pain started after recent fall and xrays performed on previous [facility] ED visit revealed T12 compression fracture. Patient's blood tests (performed due to patient reporting black stool) show anemia, with hgb 7.8 (8.9 ten days ago). Repeat hgb several hours later (patient had long ED stay) is 8.0. He is given tramadol in ED and reports improvement with this medication. After he was given this medication, I reviewed ED MD note from his 01/15/23 visit. This note indicates possible seizure at home (per patient's ). Patient had been seen earlier that day in outpatient setting and was prescribed tramadol; at this point, possibility of tramadol causing seizure is raised and thus patient is observed in ED for a few hours after the tramadol to ensure no such adverse effect. Patient did not have seizure nor other adverse reaction to the tramadol during ED observation clark. However, given this information (that he had a possible first-time seizure the same day as he was prescribed tramadol), I advised him to not take any more of the tramadol. I e-prescribed vicodin for pain instead. Results of clark's tests reviewed with patient. I advised him to follow up with his primary care provider, next available appointment. he will need to be reevaluated regarding his back pain as well as his abnormal labs (particularly his low h/h). I am prescribing a short course of short-acting opioid pain medication for this patient. 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 I have discussed that the opioids are for short term therapy only, and will not be refilled from the ED. Departure - Departure Disposition: 01 Home, Self Care Clinical Impression: Back pain Qualifiers: Back pain location: thoracic back pain Chronicity: acute Back pain laterality: midline Qualified Code(s): M54.6 - Pain in thoracic spine Condition: Good Instructions: ED Anemia Type Not Specified, ED Low Back Pain Injury, NARCOTIC, Oral Follow-Up: Mariely Feliciano MD [Primary Care Provider] - Prescriptions: HYDROcod/ACETAM 5/325 [[place] 5/325] 1 tab PO Q6H PRN #14 tablet PRN Reason: Pain 5-7 Comments: Your red blood cell level was low today, although not much lower than previous recent results. Furthermore, after several hours in the emergency department, this test was repeated and your red blood cell level had actually improved slightly. Thus, active gastrointestinal bleeding is unlikely at this time. Regarding your back pain, this is very likely related to your recent fall. As we discussed, when you were evaluated in this emergency department a few days ago for the back pain, it was noted on x-ray that you have a compression fracture of one of your thoracic vertebrae (T12). This will take some time to stop causing pain, possibly several weeks. It is important that you follow-up with your primary care provider for reevaluation of this pain, as well as your anemia (low red blood cell levels), next available appointment. In reviewing your previous records, I also note that you were in this emergency department on January 15 for possible seizure. Furthermore, I note that the same earlier the same day, you were seen in a clinic and prescribed the pain medication tramadol. Although very rare, tramadol can cause seizures. Thus, I would recommend that you stop taking the tramadol. Instead, I have electronically submitted a prescription for a different pain medication (Vicodin) to the [facility] pharmacy in [place]. Vicodin is a narcotic medication; it can cause drowsiness as well as constipation. You have indicated that you been having problems with constipation recently, so be sure to take a stool softener if you are taking the Vicodin. Do not drive for minimum of 8 hours after taking any dose of Vicodin. I am prescribing a short course of narcotic pain medication for you. These are potentially dangerous and addictive medications that should be used carefully. These medications may constipate you. Take an djke-[id number] stool softener (docusate) twice daily with plenty of water while taking these medications. If you go 24 hours without a bowel movement, take [id number] miralax, per package instructions. Do not drink or drive while taking these medications. If you received narcotic or sedating medications while in the emergency department, do not drive for 24 hours. Store this medication in a safe, secure place and out of reach of children. It is a violation of federal law to give or sell this medication to another person or to use in a manner other than prescribed. The ED will not refill narcotic prescriptions, including prescriptions lost or stolen. To dispose of unwanted medications: 1. [facility] at [address] in [place] has a medication drop box. They accept prescription medications (in pill form) Friday through Friday 9:00 a.m. to 5:00 p.m. 2. The [facility] [employer] accepts prescription medications (in pill form only) for disposal year round. Call for more information. 3. Contact the [facility] for the next [facility] sponsored prescription drug collection event. , [phone], or [phone]; Discharge Date/Time: 01/25/23 10:30
[2023-01-25 05:54] LABS: BASOPHILS % (AUTO) 0.2 %; EOSINOPHILS % (AUTO) 0.7 %; HCT - HEMATOCRIT 26.2 % (42.0-52.0); LYMPHOCYTES # (AUTO) 1.3 10^3/uL (1.5-3.5); LYMPHOCYTES % (AUTO) 28.3 %; MEAN CORPUSCULAR HEMOGLOBIN 24.5 pg (27.0-31.0); MEAN CORPUSCULAR HGB CONC 30.5 g/dL (32.0-36.0); MEAN CORPUSCULAR VOLUME 80.1 fL (80.0-94.0); MEAN PLATELET VOLUME 10.4 fL (7.4-11.4); MONOCYTES # (AUTO) 0.6 10^3/uL (0.0-1.0); MONOCYTES % (AUTO) 13.3 %; NEUTROPHILS # (AUTO) 2.5 10^3/uL (1.5-6.6); NEUTROPHILS % (AUTO) 56.4 %; PLT - PLATELET COUNT 176 10^3/uL (130-450); RED BLOOD COUNT 3.27 10^6/uL (4.70-6.10); RED CELL DISTRIBUTION WIDTH 16.3 % (12.0-15.0); WHITE BLOOD COUNT 4.4 x10^3/uL (4.8-10.8)
[2023-01-25] MEDS ORDERED: traMADol 50 MG TABLET PO STA (06:18)
[2023-01-25 11:21] VITALS: BP 135/68
== END 2023-01-25 10:30 | disposition home or self-care (01) ==
LOC: ED 23:23
DX: S22.089A Unspecified fracture of T11-T12 vertebra, initial encounter for closed fracture (principal); W19.XXXA Unspecified fall, initial encounter; I10 Essential (primary) hypertension; E11.9 Type 2 diabetes mellitus without complications; Z79.84 Long term (current) use of oral hypoglycemic drugs; I48.91 Unspecified atrial fibrillation; Z79.01 Long term (current) use of anticoagulants
CPT/HCPCS: 36415; 80053; 81001; 83690; 85025; 87086; 99283; A9270; 81003

== ENCOUNTER 2023-02-24 09:29 | Outpatient (CLI) | payer MEDICARE, BC ==
[2023-02-24 15:13] LABS: BILIRUBIN,TOTAL 0.4 mg/dL (0.2-1.0); CALCIUM 9.5 mg/dL (8.5-10.3); CREATININE 1.5 mg/dL (0.6-1.2); POTASSIUM 3.9 mmol/L (3.5-5.0)
[2023-02-24 15:20] LABS: CREATININE,URINE 22.6 mg/dL; MICROALBUM/CREATININE RATIO,UR 460.2 ug/mg (<30.0); MICROALBUMIN,URINE 10.4 mg/dL (0-300.0)
[2023-02-24 20:17] LABS: ESTIMATED AVERAGE GLUCOSE 146 mg/dL (70-100); HEMOGLOBIN A1c% 6.7 % (4.27-6.07)
== END 2023-02-24 09:30 | disposition home or self-care (01) ==
LOC: LAB.S 09:29
PROVIDERS: ATTEND Nurse Practitioner
DX: E11.22 Type 2 diabetes mellitus with diabetic chronic kidney disease (principal); E11.65 Type 2 diabetes mellitus with hyperglycemia
CPT/HCPCS: 36415; 80053; 82043; 82570; 83036

== ENCOUNTER 2023-04-03 16:20 | Outpatient (CLI) | payer MEDICARE, OTHER | END 2023-04-03 23:59 | disposition critical access hospital (66) | LOC: EMS 16:20 | DX: S01.112A Laceration without foreign body of left eyelid and periocular area, initial encounter (principal); W01.0XXA Fall on same level from slipping, tripping and stumbling without subsequent striking against object, initial encounter; Y92.414 Local residential or business street as the place of occurrence of the external cause; Z79.01 Long term (current) use of anticoagulants | CPT/HCPCS: A0425; A0429 ==

== ENCOUNTER 2023-04-03 16:47 | Inpatient (IN) | payer MEDICARE, OTHER ==
[2023-04-03 17:17] LABS: BASOPHILS % (AUTO) 0.4 %; EOSINOPHILS # (AUTO) 0.1 10^3/uL (0.0-0.7); EOSINOPHILS % (AUTO) 1.8 %; HCT - HEMATOCRIT 29.7 % (42.0-52.0); LYMPHOCYTES # (AUTO) 1.3 10^3/uL (1.5-3.5); LYMPHOCYTES % (AUTO) 26.4 %; MEAN CORPUSCULAR HGB CONC 30.3 g/dL (32.0-36.0); MEAN CORPUSCULAR VOLUME 75.8 fL (80.0-94.0); MEAN PLATELET VOLUME 11.1 fL (7.4-11.4); MONOCYTES # (AUTO) 0.5 10^3/uL (0.0-1.0); MONOCYTES % (AUTO) 10.7 %; NEUTROPHILS % (AUTO) 59.5 %; PLT - PLATELET COUNT 171 10^3/uL (130-450); RED BLOOD COUNT 3.92 10^6/uL (4.70-6.10); RED CELL DISTRIBUTION WIDTH 16.9 % (12.0-15.0)
[2023-04-03 17:24] LABS: BILIRUBIN,TOTAL 0.5 mg/dL (0.2-1.0); CALCIUM 9.8 mg/dL (8.5-10.3); CREATININE 1.6 mg/dL (0.6-1.2); POTASSIUM 4.1 mmol/L (3.5-5.0); TOTAL PROTEIN 8.1 g/dL (6.7-8.2)
[2023-04-03 17:26] LABS: INR 1.8 (0.8-1.2); PT - PROTHROMBIN TIME 18.5 secs (9.9-12.6)
--- NOTE | 2023-04-03 17:28 | ED Physician Documentation ---
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 Patient was getting out of his car. Per the patient has chronic gait instability at baseline and should be using a walker but today was using 2 walking canes when he lost his balance and fell forward. Patient denies LOC. Reports his only pain is to his head. Denies neck pain. Denies feeling dizzy or lightheaded prior to falling or having chest pain or shortness of breath. Review of Systems Constitutional: denies: Fever Cardiac: denies: Chest pain / pressure Respiratory: denies: Dyspnea GI: denies: Abdominal Pain Musculoskeletal: denies: Back pain Neurologic: reports: Head injury. denies: Syncope PD PAST MEDICAL HISTORY - Past Medical History Cardiovascular: Hypertension, High cholesterol, [place], Atrial fibrillation Neuro: Dementia Endocrine/Autoimmune: Type 2 diabetes : Benign prostate hypertrophy Musculoskeletal: Osteoarthritis - Past Surgical History Past Surgical History: Yes Ortho: Hip replacement, Knee replacement - Present Medications Home Medications: Ambulatory Orders Medication Instructions Recorded Confirmed cephALEXin [Keflex] 500 mg PO Q6H #28 cap 08/15/21 Apixaban [Eliquis] 5 mg PO BID 06/05/22 06/05/22 Atorvastatin Calcium 40 mg PO DAILY 06/05/22 06/05/22 Finasteride [Proscar] 5 mg PO DAILY 06/05/22 06/05/22 Isosorbide Mononitrate [Isosorbide 60 mg PO DAILY 06/05/22 06/05/22 Mononitrate ER] Losartan Potassium [Cozaar] 100 mg PO DAILY 06/05/22 06/05/22 Metoprolol Succinate [Toprol Xl] 200 mg PO DAILY 06/05/22 06/05/22 Tamsulosin [Flomax] 0.4 mg PO DAILY 06/05/22 06/05/22 glipiZIDE [Glipizide ER] 2.5 mg PO DAILY 06/05/22 06/05/22 hydroCHLOROthiazide [Hydrodiuril] 25 mg PO DAILY 06/05/22 06/05/22 Empagliflozin [Jardiance] 25 mg PO DAILY 01/15/23 01/15/23 HYDROcod/ACETAM 5/325 [[place] 5/325] 1 tab PO Q6H PRN #14 tablet 01/25/23 - Allergies Allergies/Adverse Reactions: Allergies Allergy/AdvReac Type Severity Reaction Status Date / Time No Known Drug Allergies Allergy Verified 01/24/23 23:32 - Social History Does the pt smoke?: No Smoking Status: Never smoker Does the pt drink ETOH?: No Does the pt have substance abuse?: No - Immunizations Immunizations are current?: Yes - POLST Patient has POLST: No PD ED PE NORMAL - General General: Alert and oriented X 3, No acute distress, Well developed/nourished - HEENT HEENT: PERRL, EOMI, Moist mucous membranes, Pharynx benign, Other (Laceration above left eyebrow) - Neck Neck: Supple, no meningeal sign, No bony TTP, C-Spine cleared by NEXUS criteria - Cardiac Cardiac: Strong equal pulses, Other (Bradycardic, regular rhythm) - Respiratory Respiratory: No respiratory distress, Clear bilaterally - Abdomen Abdomen: Normal bowel sounds, Soft, Non tender, Non distended - Derm Derm: Warm and dry - Extremities Extremities: Other (Mild tenderness to right wrist) - Neuro Neuro: Alert and oriented X 3, 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 Relevant findings are: Rate 62, normal sinus rhythm, left bundle branch block, no STEMI Rate: Rate (enter#) (62) Rhythm: NSR Intervals: LBBB Ischemia: No: ST elevation c/w ischemia - Labs Labs: Laboratory Tests 04/03/23 04/03/23 04/03/23 16:53 16:53 16:53 WBC 5.0 RBC 3.92 L Hgb 9.0 L Hct 29.7 L MCV 75.8 L MCH 23.0 L MCHC 30.3 L RDW 16.9 H Plt Count 171 MPV 11.1 Neut # (Auto) 3.0 Lymph # (Auto) 1.3 L [place] # (Auto) 0.5 Eos # (Auto) 0.1 Baso # (Auto) 0.0 Absolute Nucleated RBC 0.00 Nucleated RBC % 0.0 PT 18.5 H INR 1.8 H Sodium 139 Potassium 4.1 Chloride 106 Carbon Dioxide 23 Anion Gap 10.0 BUN 50 H Creatinine 1.6 H Estimated GFR (MDRD) 41 L Glucose 124 H Calcium 9.8 Total Bilirubin 0.5 AST 21 ALT 32 Alkaline Phosphatase 139 H Total Protein 8.1 Albumin 4.0 Globulin 4.1 Albumin/Globulin Ratio 1.0 Blood Type Blood Type Recheck Antibody Screen 04/03/23 04/03/23 16:53 17:28 WBC RBC Hgb Hct MCV MCH MCHC RDW Plt Count MPV Neut # (Auto) Lymph # (Auto) [place] # (Auto) Eos # (Auto) Baso # (Auto) Absolute Nucleated RBC Nucleated RBC % PT INR Sodium Potassium Chloride Carbon Dioxide Anion Gap BUN Creatinine Estimated GFR (MDRD) Glucose Calcium Total Bilirubin AST ALT Alkaline Phosphatase Total Protein Albumin Globulin Albumin/Globulin Ratio Blood Type A POSITIVE Blood Type Recheck A POSITIVE Antibody Screen NEGATIVE Procedures - Laceration (location) L eyebrow Length in cm: 3 Wound type: Stellate, Clean Neurovascular status: Sensory intact, Motor intact, Vascular intact Anesthesia: Lidocaine 1% Wound preparation: Hibiclens, Irrigated copiously NS Skin layer closure: Size #-0 - enter number (4), Sutures - enter # (7) Other: Patient tolerated well, No complications, Neurovascular intact, Dressing applied, Tetanus booster given PD Medical Decision Making - ED course Complexity details: reviewed results, re-evaluated patient, d/w patient, d/w family () ED course: Patient is an 82-year-old male who sustained a ground-level fall. He is on Eliquis For history of atrial fibrillation.He does have a laceration above the left eyebrow. He has no C-spine tenderness No injuries noted elsewhere. A CT head was obtained which I reviewed and see 2 small areas of Subarachnoid hemorrhage. Images were sent to [facility] and neurosurgery was consulted. His eyebrow laceration was cleaned and sutured. He did have mild tenderness to the right wrist which was also x-rayed. Labs reviewed. Patient has baseline anemia with current hemoglobin of 9.0 which is similar to prior. INR is 1.8. Creatinine is 1.6 which also appears to be at baseline. [facility] has been consulted and call back is pending at shift change. Pt signed out to Dr. Gonsalez. Departure - Departure Clinical Impression: Traumatic subarachnoid hemorrhage, Anticoagulant long-term use, Laceration of left eyebrow Condition: Stable Comments: Stop your Eliquis for 1 week. Return if he worsens. Follow-up with your primary care physician, you do have a large ventricles and you may need to be referred to a neurosurgeon anyway just for that since you do have symptoms consistent with normal pressure hydrocephalus including gait instability and dementia.
--- NOTE | 2023-04-03 17:41 | CT Report ---
PROCEDURE: HEAD WO INDICATIONS: head injury on thinners TECHNIQUE: Noncontrast 4.5 mm thick angled axial sections acquired from the foramen magnum to the vertex. For r adiation dose reduction, the following was used: automated exposure control, adjustment of mA and/or kV according to patient size. COMPARISON: Head CT 01/15/2023, 01/02/2023. FINDINGS: Image quality: Excellent. CSF spaces: Basal cisterns are patent. No extra-axial fluid collections. Ventricles are prominent in size, unchanged. No intraventricular hemorrhage.. Brain: No midline shift. No intracranial masses identified. Small foci of increased density within the sulci of the right frontal lobe and right temporal parietal lobe, (12/17, 15). Small focus of incr eased density at the right paramedian occipital lobe which appears to be within the parenchyma, (12/15 ), appears unchanged compared to December 2022.. No area of hypodensity in a vascular distribution to vargas ggest acute infarction. There is periventricular hypodensity consistent with chronic microvascular is chemic disease. Age-related parenchymal loss. Skull and face: Left forehead scalp hematoma, small to moderate. Calvarium and visualized facial bone s are intact, without suspicious lesions. Sinuses: Visualized sinuses and mastoids are clear. IMPRESSION: 1. Small foci of increased density within the sulci of the right frontal and right temporal parietal lobes x2. Suspect subarachnoid hemorrhage. Intraparenchymal petechial hemorrhage/contusion is also po ssible. 2. Focus of increased density at the right perimedian occipital lobe which is unchanged compared to A pril 2022. Clinical significance of this finding is uncertain. 3. Small to moderate sized left forehead scalp hematoma. 4. 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 Results were communicated to Dr. Perez at 04/03/2023 5:39 PM PDT. Reviewed by: Jaison Munoz MD on 04/03/2023 5:40 PM PDT Approved by: Jaison Munoz MD on 04/03/2023 5:40 PM PDT Station ID: [id number]
[2023-04-03] MEDS ORDERED: TETANUS/DIPHTHERIA/PERTUSSIS 0.5 ML SYRINGE IM ONE (17:47)
--- OUTSIDE RECORDS SUMMARY | 2023-04-03 18:11 | EXTERNAL MEDICAL SUMMARY RPT | Continuity of Care Document ---
Author Name Unknown Address [address] [place] [address] Phone Organization [facility] Address [address] [place] [address] Phone Care Team Providers Care Business Test Analyst Name Role Phone Unavailable Unavailable Unavailable Karthikeyan James Md Unavailable Unavailable Strempel Patient Registrar, Anjali Unavailable Unavailable Andi, Provider Unavailable Unavailable Medications date description facility 2023-01-15 00:00 [facility] 2023-01-16 00:00 [facility] 2023-01-25 00:00 [facility] 2023-01-26 00:00 [facility]ixaban [facility] 2023-01-28 00:00 [facility]ixaban [facility] 2023-02-24 00:00 [facility]ixaban [facility] 2023-02-25 00:00 apixaban [facility] 2023-01-15 00:00 tramadol [facility] 2023-01-15 00:00 tramadol [facility] 2023-01-15 00:00 hydrochlorothiazide [facility] 2023-01-15 00:00 hydrochlorothiazide [facility] 2023-01-16 00:00 hydrochlorothiazide [facility] 2023-01-25 00:00 hydrochlorothiazide [facility] 2023-01-26 00:00 hydrochlorothiazide [facility] 2023-01-28 00:00 hydrochlorothiazide [facility] 2023-02-24 00:00 hydrochlorothiazide [facility] 2023-02-25 00:00 hydrochlorothiazide [facility] 2023-01-15 00:00 oxycodone [facility] 2023-01-15 00:00 oxycodone [facility] 2023-01-16 00:00 oxycodone [facility] 2023-01-25 00:00 oxycodone [facility] 2023-01-26 00:00 oxycodone [facility] 2023-01-28 00:00 oxycodone [facility] 2023-02-24 00:00 oxycodone [facility] 2023-02-25 00:00 oxycodone [facility] 2023-01-15 00:00 empagliflozin [facility] 2023-01-16 00:00 empagliflozin [facility] 2023-01-25 00:00 empagliflozin [facility] 2023-01-26 00:00 empagliflozin [facility] 2023-01-28 00:00 empagliflozin [facility] 2023-02-24 00:00 empagliflozin [facility] 2023-02-25 00:00 empagliflozin [facility] 2023-01-15 00:00 blood-glucose meter [facility] 2023-01-15 00:00 blood-glucose meter [facility] 2023-01-16 00:00 blood-glucose meter [facility] 2023-01-25 00:00 blood-glucose meter [facility] 2023-01-26 00:00 blood-glucose meter [facility] 2023-01-28 00:00 blood-glucose meter [facility] 2023-02-24 00:00 blood-glucose meter [facility] 2023-02-25 00:00 blood-glucose meter [facility] 2023-01-15 00:00 blood-glucose meter [facility] 2023-01-15 00:00 blood-glucose meter [facility] 2023-01-16 00:00 blood-glucose meter [facility] 2023-01-25 00:00 blood-glucose meter [facility] 2023-01-26 00:00 blood-glucose meter [facility] 2023-01-28 00:00 blood-glucose meter [facility] 2023-02-24 00:00 blood-glucose meter [facility] 2023-02-25 00:00 blood-glucose meter [facility] 2023-01-15 00:00 hydrochlorothiazide [facility] 2023-01-15 00:00 hydrochlorothiazide [facility] 2023-01-16 00:00 hydrochlorothiazide [facility] 2023-01-25 00:00 hydrochlorothiazide [facility] 2023-01-26 00:00 hydrochlorothiazide [facility] 2023-01-28 00:00 hydrochlorothiazide [facility] 2023-02-24 00:00 hydrochlorothiazide [facility] 2023-02-25 00:00 hydrochlorothiazide [facility] 2023-01-15 00:00 alcohol swabs [facility] 2023-01-15 00:00 alcohol swabs [facility] 2023-01-16 00:00 alcohol swabs [facility] 2023-01-25 00:00 alcohol swabs [facility] 2023-01-26 00:00 alcohol swabs [facility] 2023-01-28 00:00 alcohol swabs [facility] 2023-02-24 00:00 alcohol swabs [facility] 2023-02-25 00:00 alcohol swabs [facility] 2023-01-15 00:00 oxycodone [facility] 2023-01-15 00:00 oxycodone [facility] 2023-01-16 00:00 oxycodone [facility] 2023-01-25 00:00 oxycodone [facility] 2023-01-26 00:00 oxycodone [facility] 2023-01-28 00:00 oxycodone [facility] 2023-02-24 00:00 oxycodone [facility] 2023-02-25 00:00 oxycodone [facility] 2023-01-15 00:00 docusate calcium [facility] 2023-01-15 00:00 docusate calcium [facility] 2023-01-16 00:00 docusate calcium [facility] 2023-01-25 00:00 docusate calcium [facility] 2023-01-26 00:00 docusate calcium [facility] 2023-01-28 00:00 docusate calcium [facility] 2023-02-24 00:00 docusate calcium [facility] 2023-02-25 00:00 docusate calcium [facility] 2023-01-15 00:00 apixaban [facility] 2023-01-16 00:00 apixaban [facility] 2023-01-25 00:00 apixaban [facility] 2023-01-26 00:00 apixaban [facility] 2023-01-28 00:00 apixaban [facility] 2023-02-24 00:00 apixaban [facility] 2023-02-25 00:00 apixaban [facility] 2023-01-15 00:00 empagliflozin [facility] 2023-01-16 00:00 empagliflozin [facility] 2023-01-25 00:00 empagliflozin [facility] 2023-01-26 00:00 empagliflozin [facility] 2023-01-28 00:00 empagliflozin [facility] 2023-02-24 00:00 empagliflozin [facility] 2023-02-25 00:00 empagliflozin [facility] 2023-01-15 00:00 naloxone [facility] 2023-01-15 00:00 naloxone [facility] 2023-01-16 00:00 naloxone [facility] 2023-01-25 00:00 naloxone [facility] 2023-01-26 00:00 naloxone [facility] 2023-01-28 00:00 naloxone [facility] 2023-02-24 00:00 naloxone [facility] 2023-02-25 00:00 naloxone [facility] 2023-01-15 00:00 apixaban [facility] 2023-01-16 00:00 apixaban [facility] 2023-01-25 00:00 apixaban [facility] 2023-01-26 00:00 apixaban [facility] 2023-01-28 00:00 apixaban [facility] 2023-02-24 00:00 apixaban [facility] 2023-02-25 00:00 apixaban [facility] 2023-01-15 00:00 blood-glucose meter [facility] 2023-01-15 00:00 blood-glucose meter [facility] 2023-01-16 00:00 blood-glucose meter [facility] 2023-01-25 00:00 blood-glucose meter [facility] 2023-01-26 00:00 blood-glucose meter [facility] 2023-01-28 00:00 blood-glucose meter [facility] 2023-02-24 00:00 blood-glucose meter [facility] 2023-02-25 00:00 blood-glucose meter [facility] 2023-01-15 00:00 empagliflozin [facility] 2023-01-16 00:00 empagliflozin [facility] 2023-01-25 00:00 empagliflozin [facility] 2023-01-26 00:00 empagliflozin [facility] 2023-01-28 00:00 empagliflozin [facility] 2023-02-24 00:00 empagliflozin [facility] 2023-02-25 00:00 empagliflozin [facility] 2023-01-15 00:00 naloxone [facility] 2023-01-15 00:00 naloxone [facility] 2023-01-16 00:00 naloxone [facility] 2023-01-25 00:00 naloxone [facility] 2023-01-26 00:00 naloxone [facility] 2023-01-28 00:00 naloxone [facility] 2023-02-24 00:00 naloxone [facility] 2023-02-25 00:00 naloxone [facility] 2023-01-15 00:00 aspirin [facility] 2023-01-16 00:00 aspirin [facility] 2023-01-25 00:00 aspirin [facility] 2023-01-26 00:00 aspirin [facility] 2023-01-28 00:00 aspirin [facility] 2023-02-24 00:00 aspirin [facility] 2023-02-25 00:00 aspirin [facility] 2023-01-15 00:00 blood-glucose meter [facility] 2023-01-15 00:00 blood-glucose meter [facility] 2023-01-16 00:00 blood-glucose meter [facility] 2023-01-25 00:00 blood-glucose meter [facility] 2023-01-26 00:00 blood-glucose meter [facility] 2023-01-28 00:00 blood-glucose meter [facility] 2023-02-24 00:00 blood-glucose meter [facility] 2023-02-25 00:00 blood-glucose meter [facility] 2023-01-15 00:00 lidocaine [facility] 2023-01-15 00:00 lidocaine [facility] 2023-01-16 00:00 lidocaine [facility] 2023-01-25 00:00 lidocaine [facility] 2023-01-26 00:00 lidocaine [facility] 2023-01-28 00:00 lidocaine [facility] 2023-02-24 00:00 lidocaine [facility] 2023-02-25 00:00 lidocaine [facility] 2023-01-15 00:00 aspirin [facility] 2023-01-15 00:00 aspirin [facility] 2023-01-16 00:00 aspirin [facility] 2023-01-25 00:00 aspirin [facility] 2023-01-26 00:00 aspirin [facility] 2023-01-28 00:00 aspirin [facility] 2023-02-24 00:00 aspirin [facility] 2023-02-25 00:00 aspirin [facility] 2023-01-15 00:00 aspirin [facility] 2023-01-16 00:00 aspirin [facility] 2023-01-25 00:00 aspirin [facility] 2023-01-26 00:00 aspirin [facility] 2023-01-28 00:00 aspirin [facility] 2023-02-24 00:00 aspirin [facility] 2023-02-25 00:00 aspirin [facility] 2023-01-15 00:00 aspirin [facility] 2023-01-15 00:00 aspirin [facility] 2023-01-16 00:00 aspirin [facility] 2023-01-25 00:00 aspirin [facility] 2023-01-26 00:00 aspirin [facility] 2023-01-28 00:00 aspirin [facility] 2023-02-24 00:00 aspirin [facility] 2023-02-25 00:00 aspirin [facility] 2023-01-15 00:00 empagliflozin [facility] 2023-01-16 00:00 empagliflozin [facility] 2023-01-25 00:00 empagliflozin [facility] 2023-01-26 00:00 empagliflozin [facility] 2023-01-28 00:00 empagliflozin [facility] 2023-02-24 00:00 empagliflozin [facility] 2023-02-25 00:00 empagliflozin [facility] 2023-01-15 00:00 alendronate [facility] 2023-01-15 00:00 alendronate [facility] 2023-01-16 00:00 alendronate [facility] 2023-01-25 00:00 alendronate [facility] 2023-01-26 00:00 alendronate [facility] 2023-01-28 00:00 alendronate [facility] 2023-02-24 00:00 alendronate [facility] 2023-02-25 00:00 alendronate [facility] 2023-01-15 00:00 hydrochlorothiazide [facility] 2023-01-15 00:00 hydrochlorothiazide [facility] 2023-01-16 00:00 hydrochlorothiazide [facility] 2023-01-25 00:00 hydrochlorothiazide [facility] 2023-01-26 00:00 hydrochlorothiazide [facility] 2023-01-28 00:00 hydrochlorothiazide [facility] 2023-02-24 00:00 hydrochlorothiazide [facility] 2023-02-25 00:00 hydrochlorothiazide [facility] 2023-01-15 00:00 hydrochlorothiazide [facility] 2023-01-15 00:00 hydrochlorothiazide [facility] 2023-01-16 00:00 hydrochlorothiazide [facility] 2023-01-25 00:00 hydrochlorothiazide [facility] 2023-01-26 00:00 hydrochlorothiazide [facility] 2023-01-28 00:00 hydrochlorothiazide [facility] 2023-02-24 00:00 hydrochlorothiazide [facility] 2023-02-25 00:00 hydrochlorothiazide [facility] 2023-01-15 00:00 tramadol [facility] 2023-01-15 00:00 tramadol [facility] 2023-01-15 00:00 oxycodone [facility] 2023-01-15 00:00 oxycodone [facility] 2023-01-16 00:00 oxycodone [facility] 2023-01-25 00:00 oxycodone [facility] 2023-01-26 00:00 oxycodone [facility] 2023-01-28 00:00 oxycodone [facility] 2023-02-24 00:00 oxycodone [facility] 2023-02-25 00:00 oxycodone [facility] 2023-01-15 00:00 docusate calcium [facility] 2023-01-15 00:00 docusate calcium [facility] 2023-01-16 00:00 docusate calcium [facility] 2023-01-25 00:00 docusate calcium [facility] 2023-01-26 00:00 docusate calcium [facility] 2023-01-28 00:00 docusate calcium [facility] 2023-02-24 00:00 docusate calcium [facility] 2023-02-25 00:00 docusate calcium [facility] 2023-01-15 00:00 aspirin [facility] 2023-01-15 00:00 aspirin [facility] 2023-01-16 00:00 aspirin [facility] 2023-01-25 00:00 aspirin [facility] 2023-01-26 00:00 aspirin [facility] 2023-01-28 00:00 aspirin [facility] 2023-02-24 00:00 aspirin [facility] 2023-02-25 00:00 aspirin [facility] 2023-01-15 00:00 lidocaine [facility] 2023-01-15 00:00 lidocaine [facility] 2023-01-16 00:00 lidocaine [facility] 2023-01-25 00:00 lidocaine [facility] 2023-01-26 00:00 lidocaine [facility] 2023-01-28 00:00 lidocaine [facility] 2023-02-24 00:00 lidocaine [facility] 2023-02-25 00:00 lidocaine [facility] 2023-01-15 00:00 docusate calcium [facility] 2023-01-15 00:00 docusate calcium [facility] 2023-01-16 00:00 docusate calcium [facility] 2023-01-25 00:00 docusate calcium [facility] 2023-01-26 00:00 docusate calcium [facility] 2023-01-28 00:00 docusate calcium [facility] 2023-02-24 00:00 docusate calcium [facility] 2023-02-25 00:00 docusate calcium [facility] 2023-01-15 00:00 aspirin [facility] 2023-01-15 00:00 aspirin [facility] 2023-01-16 00:00 aspirin [facility] 2023-01-25 00:00 aspirin [facility] 2023-01-26 00:00 aspirin [facility] 2023-01-28 00:00 aspirin [facility] 2023-02-24 00:00 aspirin [facility] 2023-02-25 00:00 aspirin [facility] 2023-01-15 00:00 oxycodone [facility] 2023-01-15 00:00 oxycodone [facility] 2023-01-16 00:00 oxycodone [facility] 2023-01-25 00:00 oxycodone [facility] 2023-01-26 00:00 oxycodone [facility] 2023-01-28 00:00 oxycodone [facility] 2023-02-24 00:00 oxycodone [facility] 2023-02-25 00:00 oxycodone [facility] 2023-01-15 00:00 tramadol [facility] 2023-01-15 00:00 tramadol [facility] 2023-01-15 00:00 [facility] 2023-01-15 00:00 [facility] 2023-01-16 00:00 [facility] 2023-01-25 00:00 [facility] 2023-01-26 00:00 [facility] 2023-01-28 00:00 [facility] 2023-02-24 00:00 [facility] 2023-02-25 00:00 [facility] 2023-01-15 00:00 alcohol swabs [facility] 2023-01-15 00:00 alcohol swabs [facility] 2023-01-16 00:00 alcohol swabs [facility] 2023-01-25 00:00 alcohol swabs [facility] 2023-01-26 00:00 alcohol swabs [facility] 2023-01-28 00:00 alcohol swabs [facility] 2023-02-24 00:00 alcohol swabs [facility] 2023-02-25 00:00 alcohol swabs [facility] 2023-01-15 00:00 [facility] 2023-01-15 00:00 [facility] 2023-01-16 00:00 [facility] 2023-01-25 00:00 [facility] 2023-01-26 00:00 [facility] 2023-01-28 00:00 [facility] 2023-02-24 00:00 [facility] 2023-02-25 00:00 [facility] 2023-01-15 00:00 docusate calcium [facility] 2023-01-15 00:00 docusate calcium [facility] 2023-01-16 00:00 docusate calcium [facility] 2023-01-25 00:00 docusate calcium [facility] 2023-01-26 00:00 docusate calcium [facility] 2023-01-28 00:00 docusate calcium [facility] 2023-02-24 00:00 docusate calcium [facility] 2023-02-25 00:00 docusate calcium [facility] 2023-01-15 00:00 naloxone [facility] 2023-01-15 00:00 naloxone [facility] 2023-01-16 00:00 naloxone [facility] 2023-01-25 00:00 naloxone [facility] 2023-01-26 00:00 naloxone [facility] 2023-01-28 00:00 naloxone [facility] 2023-02-24 00:00 naloxone [facility] 2023-02-25 00:00 naloxone [facility] 2023-01-15 00:00 apixaban [facility] 2023-01-16 00:00 apixaban [facility] 2023-01-25 00:00 apixaban [facility] 2023-01-26 00:00 apixaban [facility] 2023-01-28 00:00 apixaban [facility] 2023-02-24 00:00 apixaban [facility] 2023-02-25 00:00 apixaban [facility] 2023-01-15 00:00 tramadol [facility] 2023-01-15 00:00 tramadol [facility] 2023-01-15 00:00 [facility] 2023-01-15 00:00 [facility] 2023-01-16 00:00 [facility] 2023-01-25 00:00 [facility] 2023-01-26 00:00 [facility] 2023-01-28 00:00 [facility] 2023-02-24 00:00 [facility] 2023-02-25 00:00 [facility] 2023-01-15 00:00 lidocaine [facility] 2023-01-15 00:00 lidocaine [facility] 2023-01-16 00:00 lidocaine [facility] 2023-01-25 00:00 lidocaine [facility] 2023-01-26 00:00 lidocaine [facility] 2023-01-28 00:00 lidocaine [facility] 2023-02-24 00:00 lidocaine [facility] 2023-02-25 00:00 lidocaine [facility] 2023-01-15 00:00 naloxone [facility] 2023-01-15 00:00 naloxone [facility] 2023-01-16 00:00 naloxone [facility] 2023-01-25 00:00 naloxone [facility] 2023-01-26 00:00 naloxone [facility] 2023-01-28 00:00 naloxone [facility] 2023-02-24 00:00 naloxone [facility] 2023-02-25 00:00 naloxone [facility] 2023-01-15 00:00 blood-glucose meter [facility] 2023-01-15 00:00 blood-glucose meter [facility] 2023-01-16 00:00 blood-glucose meter [facility] 2023-01-25 00:00 blood-glucose meter [facility] 2023-01-26 00:00 blood-glucose meter [facility] 2023-01-28 00:00 blood-glucose meter [facility] 2023-02-24 00:00 blood-glucose meter [facility] 2023-02-25 00:00 blood-glucose meter [facility] 2023-01-15 00:00 blood-glucose meter [facility] 2023-01-15 00:00 blood-glucose meter [facility] 2023-01-16 00:00 blood-glucose meter [facility] 2023-01-25 00:00 blood-glucose meter [facility] 2023-01-26 00:00 blood-glucose meter [facility] 2023-01-28 00:00 blood-glucose meter [facility] 2023-02-24 00:00 blood-glucose meter [facility] 2023-02-25 00:00 blood-glucose meter [facility] 2023-01-15 00:00 alcohol swabs [facility] 2023-01-15 00:00 alcohol swabs [facility] 2023-01-16 00:00 alcohol swabs [facility] 2023-01-25 00:00 alcohol swabs [facility] 2023-01-26 00:00 alcohol swabs [facility] 2023-01-28 00:00 alcohol swabs [facility] 2023-02-24 00:00 alcohol swabs [facility] 2023-02-25 00:00 alcohol swabs [facility] 2023-01-15 00:00 magnesium hydroxide [facility] 2023-01-15 00:00 magnesium hydroxide [facility] 2023-01-16 00:00 magnesium hydroxide [facility] 2023-01-25 00:00 magnesium hydroxide [facility] 2023-01-26 00:00 magnesium hydroxide [facility] 2023-01-28 00:00 magnesium hydroxide [facility] 2023-02-24 00:00 magnesium hydroxide [facility] 2023-02-25 00:00 magnesium hydroxide [facility] Problems date description facility 2023-01-15 00:00 [facility]ylosis [facility] 2023-01-15 00:00 [facility]bar [facility]ondylosis [facility] 2023-01-15 00:00 Low back strain [facility] 2023-01-15 00:00 Low back strain [facility] 2023-01-15 00:00 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 [facility] 2023-01-15 00:00 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 [facility] 2023-01-15 00:00 Lumbar sprain [facility] 2023-01-15 00:00 Lumbar sprain [facility] 2023-01-15 00:00 Other spondylosis, lumbar regio n [facility] 2023-01-15 00:00 Other spondylosis, lumbar regio n [facility] 2023-01-15 00:00 Strain of muscle, fa scia and tendon of lower back, initial encounter [facility] 2023-01-15 00:00 Strain of muscle, fa scia and tendon of lower back, initial encounter [facility] Procedures date description facility 2023-01-15 00:00 Visit Code Hold [facility] 2023-01-15 00:00 Visit Code Hold [facility] 2023-01-15 00:00 XR LUMBAR SPINE 2 OR 3 [facility] 2023-01-15 00:00 XR LUMBAR SPINE 2 OR 3 VIEW [facility] Results/Labs test date author facility value unit interpretation Result panel 1 (unknown) (no date) (unknown) [facility] (no value) (units unknown) (unknown) Result panel 2 (unknown) (no date) (unknown) [facility] (no value) (units unknown) (unknown) Result panel 3 (unknown) (no date) (unknown) [facility] (no value) (units unknown) (unknown) Result panel 4 (unknown) (no date) (unknown) [facility] (no value) (units unknown) (unknown) Result panel 5 (unknown) (no date) (unknown) [facility] (no value) (units unknown) (unknown) Result panel 6 (unknown) (no date) (unknown) [facility] (no value) (units unknown) (unknown) Result panel 7 (unknown) (no date) (unknown) [facility] (no value) (units unknown) (unknown) Result panel 8 (unknown) (no date) (unknown) [facility] (no value) (units unknown) (unknown) Result panel 9 (unknown) (no date) (unknown) [facility] (no value) (units unknown) (unknown) Result panel 10 (unknown) (no date) (unknown) [facility] (no value) (units unknown) (unknown) Result panel 11 (unknown) (no date) (unknown) [facility] (no value) (units unknown) (unknown) Result panel 12 (unknown) (no date) (unknown) [facility] (no value) (units unknown) (unknown) Result panel 13 (unknown) (no date) (unknown) [facility] (no value) (units unknown) (unknown) Result panel 14 (unknown) (no date) (unknown) [facility] (no value) (units unknown) (unknown) Result panel 15 (unknown) (no date) (unknown) [facility] (no value) (units unknown) (unknown) Result panel 16 (unknown) (no date) (unknown) [facility] (no value) (units unknown) (unknown) Result panel 17 (unknown) (no date) (unknown) [facility] (no value) (units unknown) (unknown) Result panel 18 (unknown) (no date) (unknown) [facility] (no value) (units unknown) (unknown) Result panel 19 (unknown) (no date) (unknown) [facility] (no value) (units unknown) (unknown) Result panel 20 (unknown) (no date) (unknown) [facility] (no value) (units unknown) (unknown) Result panel 21 (unknown) (no date) (unknown) [facility] (no value) (units unknown) (unknown) Result panel 22 (unknown) (no date) (unknown) [facility] (no value) (units unknown) (unknown) Result panel 23 (unknown) (no date) (unknown) [facility] (no value) (units unknown) (unknown) Result panel 24 (unknown) (no date) (unknown) [facility] (no value) (units unknown) (unknown) Result panel 25 (unknown) (no date) (unknown) [facility] (no value) (units unknown) (unknown) Result panel 26 (unknown) (no date) (unknown) [facility] (no value) (units unknown) (unknown) Result panel 27 (unknown) (no date) (unknown) [facility] (no value) (units unknown) (unknown) Result panel 28 (unknown) (no date) (unknown) [facility] (no value) (units unknown) (unknown) Result panel 29 (unknown) (no date) (unknown) [facility] (no value) (units unknown) (unknown) Result panel 30 (unknown) (no date) (unknown) [facility] (no value) (units unknown) (unknown) Result panel 31 (unknown) (no date) (unknown) [facility] (no value) (units unknown) (unknown) Result panel 32 (unknown) (no date) (unknown) [facility] (no value) (units unknown) (unknown) Result panel 33 (unknown) (no date) (unknown) [facility] (no value) (units unknown) (unknown) Result panel 34 (unknown) (no date) (unknown) [facility] (no value) (units unknown) (unknown) Result panel 35 (unknown) (no date) (unknown) [facility] (no value) (units unknown) (unknown) Result panel 36 (unknown) (no date) (unknown) [facility] (no value) (units unknown) (unknown) Result panel 37 (unknown) (no date) (unknown) [facility] (no value) (units unknown) (unknown) Result panel 38 (unknown) (no date) (unknown) [facility] (no value) (units unknown) (unknown) Result panel 39 (unknown) (no date) (unknown) [facility] (no value) (units unknown) (unknown) Result panel 40 (unknown) (no date) (unknown) [facility] (no value) (units unknown) (unknown) Result panel 41 (unknown) (no date) (unknown) [facility] (no value) (units unknown) (unknown) Result panel 42 (unknown) (no date) (unknown) [facility] (no value) (units unknown) (unknown) Result panel 43 (unknown) (no date) (unknown) [facility] (no value) (units unknown) (unknown) Result panel 44 (unknown) (no date) (unknown) [facility] (no value) (units unknown) (unknown) Result panel 45 (unknown) (no date) (unknown) [facility] (no value) (units unknown) (unknown) Result panel 46 (unknown) (no date) (unknown) [facility] (no value) (units unknown) (unknown) Result panel 47 (unknown) (no date) (unknown) [facility] (no value) (units unknown) (unknown) Result panel 48 (unknown) (no date) (unknown) [facility] (no value) (units unknown) (unknown) Result panel 49 (unknown) (no date) (unknown) [facility] (no value) (units unknown) (unknown) Result panel 50 (unknown) (no date) (unknown) [facility] (no value) (units unknown) (unknown) Result panel 51 (unknown) (no date) (unknown) [facility] (no value) (units unknown) (unknown) Result panel 52 (unknown) (no date) (unknown) [facility] (no value) (units unknown) (unknown) Result panel 53 (unknown) (no date) (unknown) [facility] (no value) (units unknown) (unknown) Result panel 54 (unknown) (no date) (unknown) [facility] (no value) (units unknown) (unknown) Result panel 55 (unknown) (no date) (unknown) [facility] (no value) (units unknown) (unknown) Result panel 56 (unknown) (no date) (unknown) [facility] (no value) (units unknown) (unknown) Result panel 57 (unknown) (no date) (unknown) [facility] (no value) (units unknown) (unknown) Result panel 58 (unknown) (no date) (unknown) [facility] (no value) (units unknown) (unknown) Result panel 59 (unknown) (no date) (unknown) [facility] (no value) (units unknown) (unknown) Result panel 60 (unknown) (no date) (unknown) [facility] (no value) (units unknown) (unknown) Result panel 61 (unknown) (no date) (unknown) [facility] (no value) (units unknown) (unknown) Result panel 62 (unknown) (no date) (unknown) [facility] (no value) (units unknown) (unknown) Result panel 63 (unknown) (no date) (unknown) [facility] (no value) (units unknown) (unknown) Result panel 64 (unknown) (no date) (unknown) [facility] (no value) (units unknown) (unknown) Result panel 65 (unknown) (no date) (unknown) [facility] (no value) (units unknown) (unknown) Result panel 66 (unknown) (no date) (unknown) [facility] (no value) (units unknown) (unknown) Result panel 67 (unknown) (no date) (unknown) [facility] (no value) (units unknown) (unknown) Result panel 68 (unknown) (no date) (unknown) [facility] (no value) (units unknown) (unknown) Result panel 69 (unknown) (no date) (unknown) [facility] (no value) (units unknown) (unknown) Result panel 70 (unknown) (no date) (unknown) [facility] (no value) (units unknown) (unknown) Result panel 71 (unknown) (no date) (unknown) [facility] (no value) (units unknown) (unknown) Result panel 72 (unknown) (no date) (unknown) [facility] (no value) (units unknown) (unknown) Result panel 73 (unknown) (no date) (unknown) [facility] (no value) (units unknown) (unknown) Result panel 74 (unknown) (no date) (unknown) [facility] (no value) (units unknown) (unknown) Result panel 75 (unknown) (no date) (unknown) [facility] (no value) (units unknown) (unknown) Result panel 76 (unknown) (no date) (unknown) [facility] (no value) (units unknown) (unknown) Result panel 77 (unknown) (no date) (unknown) [facility] (no value) (units unknown) (unknown) Result panel 78 (unknown) (no date) (unknown) [facility] (no value) (units unknown) (unknown) Result panel 79 (unknown) (no date) (unknown) [facility] (no value) (units unknown) (unknown) Result panel 80 (unknown) (no date) (unknown) [facility] (no value) (units unknown) (unknown) Result panel 81 (unknown) (no date) (unknown) [facility] (no value) (units unknown) (unknown) Result panel 82 (unknown) (no date) (unknown) [facility] (no value) (units unknown) (unknown) Result panel 83 (unknown) (no date) (unknown) [facility] (no value) (units unknown) (unknown) Result panel 84 (unknown) (no date) (unknown) [facility] (no value) (units unknown) (unknown) Result panel 85 (unknown) (no date) (unknown) [facility] (no value) (units unknown) (unknown) Result panel 86 (unknown) (no date) (unknown) [facility] (no value) (units unknown) (unknown) Result panel 87 (unknown) (no date) (unknown) [facility] (no value) (units unknown) (unknown) Result panel 88 (unknown) (no date) (unknown) [facility] (no value) (units unknown) (unknown) Result panel 89 (unknown) (no date) (unknown) [facility] (no value) (units unknown) (unknown) Result panel 90 (unknown) (no date) (unknown) [facility] (no value) (units unknown) (unknown) Result panel 91 (unknown) (no date) (unknown) [facility] (no value) (units unknown) (unknown) Result panel 92 (unknown) (no date) (unknown) [facility] [facility] (no value) (units unknown) (unknown) Result panel 93 (unknown) (no date) (unknown) [facility] (no value) (units unknown) (unknown) Result panel 94 (unknown) (no date) (unknown) [facility] (no value) (units unknown) (unknown) Result panel 95 (unknown) (no date) (unknown) [facility] (no value) (units unknown) (unknown) Result panel 96 (unknown) (no date) (unknown) [facility] (no value) (units unknown) (unknown) Result panel 97 (unknown) (no date) (unknown) [facility] (no value) (units unknown) (unknown) Result panel 98 (unknown) (no date) (unknown) [facility] (no value) (units unknown) (unknown) Result panel 99 (unknown) (no date) (unknown) [facility] (no value) (units unknown) (unknown) Result panel 100 (unknown) (no date) (unknown) [facility] (no value) (units unknown) (unknown) Result panel 101 (unknown) (no date) (unknown) [facility] (no value) (units unknown) (unknown) Result panel 102 (unknown) (no date) (unknown) [facility] (no value) (units unknown) (unknown) Result panel 103 (unknown) (no date) (unknown) [facility] (no value) (units unknown) (unknown) Result panel 104 (unknown) (no date) (unknown) [facility] (no value) (units unknown) (unknown) Result panel 105 (unknown) (no date) (unknown) [facility] (no value) (units unknown) (unknown) Result panel 106 (unknown) (no date) (unknown) [facility] (no value) (units unknown) (unknown) Result panel 107 (unknown) (no date) (unknown) [facility] (no value) (units unknown) (unknown) Result panel 108 (unknown) (no date) (unknown) [facility] (no value) (units unknown) (unknown) Result panel 109 (unknown) (no date) (unknown) [facility] (no value) (units unknown) (unknown) Result panel 110 (unknown) (no date) (unknown) [facility] (no value) (units unknown) (unknown) Result panel 111 (unknown) (no date) (unknown) [facility] (no value) (units unknown) (unknown) Result panel 112 (unknown) (no date) (unknown) [facility] (no value) (units unknown) (unknown) Result panel 113 (unknown) (no date) (unknown) [facility] (no value) (units unknown) (unknown) Result panel 114 (unknown) (no date) (unknown) [facility] (no value) (units unknown) (unknown) Result panel 115 (unknown) (no date) (unknown) [facility] (no value) (units unknown) (unknown) Result panel 116 (unknown) (no date) (unknown) [facility] (no value) (units unknown) (unknown) Result panel 117 (unknown) (no date) (unknown) [facility] (no value) (units unknown) (unknown) Result panel 118 (unknown) (no date) (unknown) [facility] (no value) (units unknown) (unknown) Result panel 119 (unknown) (no date) (unknown) [facility] (no value) (units unknown) (unknown) Result panel 120 (unknown) (no date) (unknown) [facility] (no value) (units unknown) (unknown) Result panel 121 (unknown) (no date) (unknown) [facility] (no value) (units unknown) (unknown) Result panel 122 (unknown) (no date) (unknown) [facility] (no value) (units unknown) (unknown) Result panel 123 (unknown) (no date) (unknown) [facility] (no value) (units unknown) (unknown) Result panel 124 (unknown) (no date) (unknown) [facility] (no value) (units unknown) (unknown) Result panel 125 (unknown) (no date) (unknown) [facility] (no value) (units unknown) (unknown) Result panel 126 (unknown) (no date) (unknown) [facility] (no value) (units unknown) (unknown) Result panel 127 (unknown) (no date) (unknown) [facility] (no value) (units unknown) (unknown) Result panel 128 (unknown) (no date) (unknown) [facility] (no value) (units unknown) (unknown) Result panel 129 (unknown) (no date) (unknown) [facility] (no value) (units unknown) (unknown) Result panel 130 (unknown) (no date) (unknown) [facility] (no value) (units unknown) (unknown) Result panel 131 (unknown) (no date) (unknown) [facility] (no value) (units unknown) (unknown) Result panel 132 (unknown) (no date) (unknown) [facility] (no value) (units unknown) (unknown) Result panel 133 (unknown) (no date) (unknown) [facility] (no value) (units unknown) (unknown) Result panel 134 (unknown) (no date) (unknown) [facility] (no value) (units unknown) (unknown) Result panel 135 (unknown) (no date) (unknown) [facility] (no value) (units unknown) (unknown) Result panel 136 (unknown) (no date) (unknown) [facility] (no value) (units unknown) (unknown) Result panel 137 (unknown) (no date) (unknown) [facility] (no value) (units unknown) (unknown) Result panel 138 (unknown) (no date) (unknown) [facility] (no value) (units unknown) (unknown) Result panel 139 (unknown) (no date) (unknown) [facility] (no value) (units unknown) (unknown) Result panel 140 (unknown) (no date) (unknown) [facility] (no value) (units unknown) (unknown) Result panel 141 (unknown) (no date) (unknown) [facility] (no value) (units unknown) (unknown) Result panel 142 (unknown) (no date) (unknown) [facility] (no value) (units unknown) (unknown) Result panel 143 (unknown) (no date) (unknown) [facility] (no value) (units unknown) (unknown) Result panel 144 (unknown) (no date) (unknown) [facility] (no value) (units unknown) (unknown) Result panel 145 (unknown) (no date) (unknown) [facility] (no value) (units unknown) (unknown) Result panel 146 (unknown) (no date) (unknown) [facility] (no value) (units unknown) (unknown) Result panel 147 (unknown) (no date) (unknown) [facility] (no value) (units unknown) (unknown) Result panel 148 (unknown) (no date) (unknown) [facility] (no value) (units unknown) (unknown) Result panel 149 (unknown) (no date) (unknown) [facility] (no value) (units unknown) (unknown) Result panel 150 (unknown) (no date) (unknown) [facility] (no value) (units unknown) (unknown) Result panel 151 (unknown) (no date) (unknown) [facility] (no value) (units unknown) (unknown) Result panel 152 (unknown) (no date) (unknown) [facility] (no value) (units unknown) (unknown) Result panel 153 (unknown) (no date) (unknown) [facility] (no value) (units unknown) (unknown) Result panel 154 (unknown) (no date) (unknown) [facility] (no value) (units unknown) (unknown) Result panel 155 (unknown) (no date) (unknown) [facility] (no value) (units unknown) (unknown) Result panel 156 (unknown) (no date) (unknown) [facility] (no value) (units unknown) (unknown) Result panel 157 (unknown) (no date) (unknown) [facility] (no value) (units unknown) (unknown) Result panel 158 (unknown) (no date) (unknown) [facility] (no value) (units unknown) (unknown) Result panel 159 (unknown) (no date) (unknown) [facility] (no value) (units unknown) (unknown) Result panel 160 (unknown) (no date) (unknown) [facility] (no value) (units unknown) (unknown) Result panel 161 (unknown) (no date) (unknown) [facility] (no value) (units unknown) (unknown) Result panel 162 (unknown) (no date) (unknown) [facility] (no value) (units unknown) (unknown) Result panel 163 (unknown) (no date) (unknown) [facility] (no value) (units unknown) (unknown) Result panel 164 (unknown) (no date) (unknown) [facility] (no value) (units unknown) (unknown) Result panel 165 (unknown) (no date) (unknown) [facility] (no value) (units unknown) (unknown) Result panel 166 (unknown) (no date) (unknown) [facility] (no value) (units unknown) (unknown) Result panel 167 (unknown) (no date) (unknown) [facility] (no value) (units unknown) (unknown) Result panel 168 (unknown) (no date) (unknown) [facility] (no value) (units unknown) (unknown) Result panel 169 (unknown) (no date) (unknown) [facility] (no value) (units unknown) (unknown) Result panel 170 (unknown) (no date) (unknown) [facility] (no value) (units unknown) (unknown) Result panel 171 (unknown) (no date) (unknown) [facility] (no value) (units unknown) (unknown) Result panel 172 (unknown) (no date) (unknown) [facility] (no value) (units unknown) (unknown) Result panel 173 (unknown) (no date) (unknown) [facility] (no value) (units unknown) (unknown) Result panel 174 (unknown) (no date) (unknown) [facility] (no value) (units unknown) (unknown) Result panel 175 (unknown) (no date) (unknown) [facility] (no value) (units unknown) (unknown) Result panel 176 (unknown) (no date) (unknown) [facility] (no value) (units unknown) (unknown) Result panel 177 (unknown) (no date) (unknown) [facility] (no value) (units unknown) (unknown) Result panel 178 (unknown) (no date) (unknown) [facility] (no value) (units unknown) (unknown) Result panel 179 (unknown) (no date) (unknown) [facility] (no value) (units unknown) (unknown) Result panel 180 (unknown) (no date) (unknown) [facility] (no value) (units unknown) (unknown) Result panel 181 (unknown) (no date) (unknown) [facility] (no value) (units unknown) (unknown) Result panel 182 (unknown) (no date) (unknown) [facility] (no value) (units unknown) (unknown) Result panel 183 (unknown) (no date) (unknown) [facility] (no value) (units unknown) (unknown) Result panel 184 (unknown) (no date) (unknown) [facility] (no value) (units unknown) (unknown) Result panel 185 (unknown) (no date) (unknown) [facility] (no value) (units unknown) (unknown) Result panel 186 (unknown) (no date) (unknown) [facility] (no value) (units unknown) (unknown) Result panel 187 (unknown) (no date) (unknown) [facility] (no value) (units unknown) (unknown) Result panel 188 (unknown) (no date) (unknown) [facility] (no value) (units unknown) (unknown) Result panel 189 (unknown) (no date) (unknown) [facility] (no value) (units unknown) (unknown) Result panel 190 (unknown) (no date) (unknown) [facility] (no value) (units unknown) (unknown) Result panel 191 (unknown) (no date) (unknown) [facility] (no value) (units unknown) (unknown) Result panel 192 (unknown) (no date) (unknown) [facility] (no value) (units unknown) (unknown) Result panel 193 (unknown) (no date) (unknown) [facility] (no value) (units unknown) (unknown) Result panel 194 (unknown) (no date) (unknown) [facility] (no value) (units unknown) (unknown) Result panel 195 (unknown) (no date) (unknown) [facility] (no value) (units unknown) (unknown) Result panel 196 (unknown) (no date) (unknown) [facility] (no value) (units unknown) (unknown) Result panel 197 (unknown) (no date) (unknown) [facility] (no value) (units unknown) (unknown) Result panel 198 (unknown) (no date) (unknown) [facility] (no value) (units unknown) (unknown) Result panel 199 (unknown) (no date) (unknown) [facility] (no value) (units unknown) (unknown) Result panel 200 (unknown) (no date) (unknown) [facility] (no value) (units unknown) (unknown) Result panel 201 (unknown) (no date) (unknown) [facility] (no value) (units unknown) (unknown) Result panel 202 (unknown) (no date) (unknown) [facility] (no value) (units unknown) (unknown) Result panel 203 (unknown) (no date) (unknown) [facility] (no value) (units unknown) (unknown) Result panel 204 (unknown) (no date) (unknown) [facility] (no value) (units unknown) (unknown) Result panel 205 (unknown) (no date) (unknown) [facility] (no value) (units unknown) (unknown) Result panel 206 (unknown) (no date) (unknown) [facility] (no value) (units unknown) (unknown) Result panel 207 (unknown) (no date) (unknown) [facility] (no value) (units unknown) (unknown) Result panel 208 (unknown) (no date) (unknown) [facility] (no value) (units unknown) (unknown) Result panel 209 (unknown) (no date) (unknown) [facility] (no value) (units unknown) (unknown) Result panel 210 (unknown) (no date) (unknown) [facility] (no value) (units unknown) (unknown) Result panel 211 (unknown) (no date) (unknown) [facility] (no value) (units unknown) (unknown) Result panel 212 (unknown) (no date) (unknown) [facility] (no value) (units unknown) (unknown) Result panel 213 (unknown) (no date) (unknown) [facility] (no value) (units unknown) (unknown) Result panel 214 (unknown) (no date) (unknown) [facility] (no value) (units unknown) (unknown) Result panel 215 (unknown) (no date) (unknown) [facility] (no value) (units unknown) (unknown) Result panel 216 (unknown) (no date) (unknown) [facility] (no value) (units unknown) (unknown) Result panel 217 (unknown) (no date) (unknown) [facility] (no value) (units unknown) (unknown) Result panel 218 (unknown) (no date) (unknown) [facility] (no value) (units unknown) (unknown) Result panel 219 (unknown) (no date) (unknown) [facility] (no value) (units unknown) (unknown) Result panel 220 (unknown) (no date) (unknown) [facility] (no value) (units unknown) (unknown) Result panel 221 (unknown) (no date) (unknown) [facility] (no value) (units unknown) (unknown) Result panel 222 (unknown) (no date) (unknown) [facility] (no value) (units unknown) (unknown) Result panel 223 (unknown) (no date) (unknown) [facility] (no value) (units unknown) (unknown) Result panel 224 (unknown) (no date) (unknown) [facility] (no value) (units unknown) (unknown) Result panel 225 (unknown) (no date) (unknown) [facility] (no value) (units unknown) (unknown) Result panel 226 (unknown) (no date) (unknown) [facility] (no value) (units unknown) (unknown) Result panel 227 (unknown) (no date) (unknown) [facility] (no value) (units unknown) (unknown) Result panel 228 (unknown) (no date) (unknown) [facility] (no value) (units unknown) (unknown) Result panel 229 (unknown) (no date) (unknown) [facility] (no value) (units unknown) (unknown) Result panel 230 (unknown) (no date) (unknown) [facility] (no value) (units unknown) (unknown) Result panel 231 (unknown) (no date) (unknown) [facility] (no value) (units unknown) (unknown) Result panel 232 (unknown) (no date) (unknown) [facility] (no value) (units unknown) (unknown) Result panel 233 (unknown) (no date) (unknown) [facility] (no value) (units unknown) (unknown) Result panel 234 (unknown) (no date) (unknown) [facility] (no value) (units unknown) (unknown) Result panel 235 (unknown) (no date) (unknown) [facility] (no value) (units unknown) (unknown) Result panel 236 (unknown) (no date) (unknown) [facility] (no value) (units unknown) (unknown) Result panel 237 (unknown) (no date) (unknown) [facility] (no value) (units unknown) (unknown) Result panel 238 (unknown) (no date) (unknown) [facility] (no value) (units unknown) (unknown) Result panel 239 (unknown) (no date) (unknown) [facility] (no value) (units unknown) (unknown) Result panel 240 (unknown) (no date) (unknown) [facility] (no value) (units unknown) (unknown) Result panel 241 (unknown) (no date) (unknown) [facility] (no value) (units unknown) (unknown) Result panel 242 (unknown) (no date) (unknown) [facility] (no value) (units unknown) (unknown) Result panel 243 (unknown) (no date) (unknown) [facility] (no value) (units unknown) (unknown) Result panel 244 (unknown) (no date) (unknown) [facility] (no value) (units unknown) (unknown) Result panel 245 (unknown) (no date) (unknown) [facility] (no value) (units unknown) (unknown) Result panel 246 (unknown) (no date) (unknown) [facility] (no value) (units unknown) (unknown) Result panel 247 (unknown) (no date) (unknown) [facility] (no value) (units unknown) (unknown) Result panel 248 (unknown) (no date) (unknown) [facility] (no value) (units unknown) (unknown) Result panel 249 (unknown) (no date) (unknown) [facility] (no value) (units unknown) (unknown) Result panel 250 (unknown) (no date) (unknown) [facility] (no value) (units unknown) (unknown) Result panel 251 (unknown) (no date) (unknown) [facility] (no value) (units unknown) (unknown) Result panel 252 (unknown) (no date) (unknown) [facility] (no value) (units unknown) (unknown) Result panel 253 (unknown) (no date) (unknown) [facility] (no value) (units unknown) (unknown) Result panel 254 (unknown) (no date) (unknown) [facility] (no value) (units unknown) (unknown) Result panel 255 (unknown) (no date) (unknown) [facility] (no value) (units unknown) (unknown) Result panel 256 (unknown) (no date) (unknown) [facility] (no value) (units unknown) (unknown) Result panel 257 (unknown) (no date) (unknown) [facility] (no value) (units unknown) (unknown) Result panel 258 (unknown) (no date) (unknown) [facility] (no value) (units unknown) (unknown) Result panel 259 (unknown) (no date) (unknown) [facility] (no value) (units unknown) (unknown) Result panel 260 (unknown) (no date) (unknown) [facility] (no value) (units unknown) (unknown) Result panel 261 (unknown) (no date) (unknown) [facility] (no value) (units unknown) (unknown) Result panel 262 (unknown) (no date) (unknown) [facility] (no value) (units unknown) (unknown) Result panel 263 (unknown) (no date) (unknown) [facility] (no value) (units unknown) (unknown) Result panel 264 (unknown) (no date) (unknown) [facility] (no value) (units unknown) (unknown) Result panel 265 (unknown) (no date) (unknown) [facility] (no value) (units unknown) (unknown) Result panel 266 (unknown) (no date) (unknown) [facility] (no value) (units unknown) (unknown) Result panel 267 (unknown) (no date) (unknown) [facility] (no value) (units unknown) (unknown) Result panel 268 (unknown) (no date) (unknown) [facility] (no value) (units unknown) (unknown) Result panel 269 (unknown) (no date) (unknown) [facility] (no value) (units unknown) (unknown) Result panel 270 (unknown) (no date) (unknown) [facility] (no value) (units unknown) (unknown) Result panel 271 (unknown) (no date) (unknown) [facility] (no value) (units unknown) (unknown) Result panel 272 (unknown) (no date) (unknown) [facility] (no value) (units unknown) (unknown) Result panel 273 (unknown) (no date) (unknown) [facility] (no value) (units unknown) (unknown) Result panel 274 (unknown) (no date) (unknown) [facility] (no value) (units unknown) (unknown) Result panel 275 (unknown) (no date) (unknown) [facility] (no value) (units unknown) (unknown) Result panel 276 (unknown) (no date) (unknown) [facility] (no value) (units unknown) (unknown) Result panel 277 (unknown) (no date) (unknown) [facility] (no value) (units unknown) (unknown) Result panel 278 (unknown) (no date) (unknown) [facility] (no value) (units unknown) (unknown) Result panel 279 (unknown) (no date) (unknown) [facility] (no value) (units unknown) (unknown) Result panel 280 (unknown) (no date) (unknown) [facility] (no value) (units unknown) (unknown) Result panel 281 (unknown) (no date) (unknown) [facility] (no value) (units unknown) (unknown) Result panel 282 (unknown) (no date) (unknown) [facility] (no value) (units unknown) (unknown) Result panel 283 (unknown) (no date) (unknown) [facility] (no value) (units unknown) (unknown) Result panel 284 (unknown) (no date) (unknown) [facility] (no value) (units unknown) (unknown) Result panel 285 (unknown) (no date) (unknown) [facility] (no value) (units unknown) (unknown) Result panel 286 (unknown) (no date) (unknown) [facility] (no value) (units unknown) (unknown) Result panel 287 (unknown) (no date) (unknown) [facility] (no value) (units unknown) (unknown) Result panel 288 (unknown) (no date) (unknown) [facility] (no value) (units unknown) (unknown) Result panel 289 (unknown) (no date) (unknown) [facility] (no value) (units unknown) (unknown) Result panel 290 (unknown) (no date) (unknown) [facility] (no value) (units unknown) (unknown) Result panel 291 (unknown) (no date) (unknown) [facility] (no value) (units unknown) (unknown) Result panel 292 (unknown) (no date) (unknown) [facility] (no value) (units unknown) (unknown) Result panel 293 (unknown) (no date) (unknown) [facility] (no value) (units unknown) (unknown) Result panel 294 (unknown) (no date) (unknown) [facility] (no value) (units unknown) (unknown) Result panel 295 (unknown) (no date) (unknown) [facility] (no value) (units unknown) (unknown) Result panel 296 (unknown) (no date) (unknown) [facility] (no value) (units unknown) (unknown) Result panel 297 (unknown) (no date) (unknown) [facility] (no value) (units unknown) (unknown) Result panel 298 (unknown) (no date) (unknown) [facility] (no value) (units unknown) (unknown) Result panel 299 (unknown) (no date) (unknown) [facility] (no value) (units unknown) (unknown) Result panel 300 (unknown) (no date) (unknown) [facility] (no value) (units unknown) (unknown) Result panel 301 (unknown) (no date) (unknown) [facility] (no value) (units unknown) (unknown) Result panel 302 (unknown) (no date) (unknown) [facility] (no value) (units unknown) (unknown) Result panel 303 (unknown) (no date) (unknown) [facility] (no value) (units unknown) (unknown) Result panel 304 (unknown) (no date) (unknown) [facility] (no value) (units unknown) (unknown) Result panel 305 (unknown) (no date) (unknown) [facility] (no value) (units unknown) (unknown) Result panel 306 (unknown) (no date) (unknown) [facility] (no value) (units unknown) (unknown) Result panel 307 (unknown) (no date) (unknown) [facility] (no value) (units unknown) (unknown) Result panel 308 (unknown) (no date) (unknown) [facility] (no value) (units unknown) (unknown) Result panel 309 (unknown) (no date) (unknown) [facility] (no value) (units unknown) (unknown) Result panel 310 (unknown) (no date) (unknown) [facility] (no value) (units unknown) (unknown) Result panel 311 (unknown) (no date) (unknown) [facility] (no value) (units unknown) (unknown) Result panel 312 (unknown) (no date) (unknown) [facility] (no value) (units unknown) (unknown) Result panel 313 (unknown) (no date) (unknown) [facility] (no value) (units unknown) (unknown) Result panel 314 (unknown) (no date) (unknown) [facility] (no value) (units unknown) (unknown) Result panel 315 (unknown) (no date) (unknown) [facility] (no value) (units unknown) (unknown) Result panel 316 (unknown) (no date) (unknown) [facility] (no value) (units unknown) (unknown) Result panel 317 (unknown) (no date) (unknown) [facility] (no value) (units unknown) (unknown) Result panel 318 (unknown) (no date) (unknown) [facility] (no value) (units unknown) (unknown) Result panel 319 (unknown) (no date) (unknown) [facility] (no value) (units unknown) (unknown) Result panel 320 (unknown) (no date) (unknown) [facility] (no value) (units unknown) (unknown) Result panel 321 (unknown) (no date) (unknown) [facility] (no value) (units unknown) (unknown) Result panel 322 (unknown) (no date) (unknown) [facility] (no value) (units unknown) (unknown) Result panel 323 (unknown) (no date) (unknown) [facility] (no value) (units unknown) (unknown) Result panel 324 (unknown) (no date) (unknown) [facility] (no value) (units unknown) (unknown) Result panel 325 (unknown) (no date) (unknown) [facility] (no value) (units unknown) (unknown) Result panel 326 (unknown) (no date) (unknown) [facility] (no value) (units unknown) (unknown) Result panel 327 (unknown) (no date) (unknown) [facility] (no value) (units unknown) (unknown) Result panel 328 (unknown) (no date) (unknown) [facility] (no value) (units unknown) (unknown) Result panel 329 (unknown) (no date) (unknown) [facility] (no value) (units unknown) (unknown) Result panel 330 (unknown) (no date) (unknown) [facility] (no value) (units unknown) (unknown) Result panel 331 (unknown) (no date) (unknown) [facility] (no value) (units unknown) (unknown) Result panel 332 (unknown) (no date) (unknown) [facility] (no value) (units unknown) (unknown) Result panel 333 (unknown) (no date) (unknown) [facility] (no value) (units unknown) (unknown) Result panel 334 (unknown) (no date) (unknown) [facility] (no value) (units unknown) (unknown) Result panel 335 (unknown) (no date) (unknown) [facility] (no value) (units unknown) (unknown) Result panel 336 (unknown) (no date) (unknown) [facility] (no value) (units unknown) (unknown) Result panel 337 (unknown) (no date) (unknown) [facility] (no value) (units unknown) (unknown) Result panel 338 (unknown) (no date) (unknown) [facility] (no value) (units unknown) (unknown) Result panel 339 (unknown) (no date) (unknown) [facility] (no value) (units unknown) (unknown) Result panel 340 (unknown) (no date) (unknown) [facility] (no value) (units unknown) (unknown) Result panel 341 (unknown) (no date) (unknown) [facility] (no value) (units unknown) (unknown) Result panel 342 (unknown) (no date) (unknown) [facility] (no value) (units unknown) (unknown) Result panel 343 (unknown) (no date) (unknown) [facility] (no value) (units unknown) (unknown) Result panel 344 (unknown) (no date) (unknown) [facility] (no value) (units unknown) (unknown) Result panel 345 (unknown) (no date) (unknown) [facility] (no value) (units unknown) (unknown) Result panel 346 (unknown) (no date) (unknown) [facility] (no value) (units unknown) (unknown) Result panel 347 (unknown) (no date) (unknown) [facility] (no value) (units unknown) (unknown) Result panel 348 (unknown) (no date) (unknown) [facility] (no value) (units unknown) (unknown) Result panel 349 (unknown) (no date) (unknown) [facility] (no value) (units unknown) (unknown) Result panel 350 (unknown) (no date) (unknown) [facility] (no value) (units unknown) (unknown) Result panel 351 (unknown) (no date) (unknown) [facility] (no value) (units unknown) (unknown) Result panel 352 (unknown) (no date) (unknown) [facility] (no value) (units unknown) (unknown) Result panel 353 (unknown) (no date) (unknown) [facility] (no value) (units unknown) (unknown) Result panel 354 (unknown) (no date) (unknown) [facility] (no value) (units unknown) (unknown) Result panel 355 (unknown) (no date) (unknown) [facility] (no value) (units unknown) (unknown) Result panel 356 (unknown) (no date) (unknown) [facility] (no value) (units unknown) (unknown) Result panel 357 (unknown) (no date) (unknown) [facility] (no value) (units unknown) (unknown) Result panel 358 (unknown) (no date) (unknown) [facility] (no value) (units unknown) (unknown) Result panel 359 (unknown) (no date) (unknown) [facility] (no value) (units unknown) (unknown) Result panel 360 (unknown) (no date) (unknown) [facility] (no value) (units unknown) (unknown) Result panel 361 (unknown) (no date) (unknown) [facility] (no value) (units unknown) (unknown) Result panel 362 (unknown) (no date) (unknown) [facility] (no value) (units unknown) (unknown) Result panel 363 (unknown) (no date) (unknown) [facility] (no value) (units unknown) (unknown) Result panel 364 (unknown) (no date) (unknown) [facility] (no value) (units unknown) (unknown) Result panel 365 (unknown) (no date) (unknown) [facility] (no value) (units unknown) (unknown) Result panel 366 (unknown) (no date) (unknown) [facility] (no value) (units unknown) (unknown) Result panel 367 (unknown) (no date) (unknown) [facility] (no value) (units unknown) (unknown) Result panel 368 (unknown) (no date) (unknown) [facility] (no value) (units unknown) (unknown) Result panel 369 (unknown) (no date) (unknown) [facility] (no value) (units unknown) (unknown) Result panel 370 (unknown) (no date) (unknown) [facility] (no value) (units unknown) (unknown) Result panel 371 (unknown) (no date) (unknown) [facility] (no value) (units unknown) (unknown) Result panel 372 (unknown) (no date) (unknown) [facility] (no value) (units unknown) (unknown) Result panel 373 (unknown) (no date) (unknown) [facility] (no value) (units unknown) (unknown) Result panel 374 (unknown) (no date) (unknown) [facility] (no value) (units unknown) (unknown) Result panel 375 (unknown) (no date) (unknown) [facility] (no value) (units unknown) (unknown) Result panel 376 (unknown) (no date) (unknown) [facility] (no value) (units unknown) (unknown) Result panel 377 (unknown) (no date) (unknown) [facility] (no value) (units unknown) (unknown) Result panel 378 (unknown) (no date) (unknown) [facility] (no value) (units unknown) (unknown) Result panel 379 (unknown) (no date) (unknown) [facility] (no value) (units unknown) (unknown) Result panel 380 (unknown) (no date) (unknown) [facility] (no value) (units unknown) (unknown) Result panel 381 (unknown) (no date) (unknown) [facility] (no value) (units unknown) (unknown) Result panel 382 (unknown) (no date) (unknown) [facility] (no value) (units unknown) (unknown) Result panel 383 (unknown) (no date) (unknown) [facility] (no value) (units unknown) (unknown) Result panel 384 (unknown) (no date) (unknown) [facility] (no value) (units unknown) (unknown) Result panel 385 (unknown) (no date) (unknown) [facility] (no value) (units unknown) (unknown) Result panel 386 (unknown) (no date) (unknown) [facility] (no value) (units unknown) (unknown) Result panel 387 (unknown) (no date) (unknown) [facility] (no value) (units unknown) (unknown) Result panel 388 (unknown) (no date) (unknown) [facility] (no value) (units unknown) (unknown) Result panel 389 (unknown) (no date) (unknown) [facility] (no value) (units unknown) (unknown) Result panel 390 (unknown) (no date) (unknown) [facility] (no value) (units unknown) (unknown) Result panel 391 (unknown) (no date) (unknown) [facility] (no value) (units unknown) (unknown) Result panel 392 (unknown) (no date) (unknown) [facility] (no value) (units unknown) (unknown) Result panel 393 (unknown) (no date) (unknown) [facility] (no value) (units unknown) (unknown) Result panel 394 (unknown) (no date) (unknown) [facility] (no value) (units unknown) (unknown) Result panel 395 (unknown) (no date) (unknown) [facility] (no value) (units unknown) (unknown) Result panel 396 (unknown) (no date) (unknown) [facility] (no value) (units unknown) (unknown) Result panel 397 (unknown) (no date) (unknown) [facility] (no value) (units unknown) (unknown) Result panel 398 (unknown) (no date) (unknown) [facility] (no value) (units unknown) (unknown) Result panel 399 (unknown) (no date) (unknown) [facility] (no value) (units unknown) (unknown) Result panel 400 (unknown) (no date) (unknown) [facility] (no value) (units unknown) (unknown) Result panel 401 (unknown) (no date) (unknown) [facility] (no value) (units unknown) (unknown) Result panel 402 (unknown) (no date) (unknown) [facility] (no value) (units unknown) (unknown) Result panel 403 (unknown) (no date) (unknown) [facility] (no value) (units unknown) (unknown) Result panel 404 (unknown) (no date) (unknown) [facility] (no value) (units unknown) (unknown) Result panel 405 (unknown) (no date) (unknown) [facility] (no value) (units unknown) (unknown) Result panel 406 (unknown) (no date) (unknown) [facility] (no value) (units unknown) (unknown) Result panel 407 (unknown) (no date) (unknown) [facility] (no value) (units unknown) (unknown) Result panel 408 (unknown) (no date) (unknown) [facility] (no value) (units unknown) (unknown) Result panel 409 (unknown) (no date) (unknown) [facility] (no value) (units unknown) (unknown) Result panel 410 (unknown) (no date) (unknown) [facility] (no value) (units unknown) (unknown) Result panel 411 (unknown) (no date) (unknown) [facility] (no value) (units unknown) (unknown) Result panel 412 (unknown) (no date) (unknown) [facility] (no value) (units unknown) (unknown) Result panel 413 (unknown) (no date) (unknown) [facility] (no value) (units unknown) (unknown) Result panel 414 (unknown) (no date) (unknown) [facility] (no value) (units unknown) (unknown) Result panel 415 (unknown) (no date) (unknown) [facility] (no value) (units unknown) (unknown) Result panel 416 (unknown) (no date) (unknown) [facility] (no value) (units unknown) (unknown) Result panel 417 (unknown) (no date) (unknown) [facility] (no value) (units unknown) (unknown) Result panel 418 (unknown) (no date) (unknown) [facility] (no value) (units unknown) (unknown) Result panel 419 (unknown) (no date) (unknown) [facility] (no value) (units unknown) (unknown) Result panel 420 (unknown) (no date) (unknown) [facility] (no value) (units unknown) (unknown) Result panel 421 (unknown) (no date) (unknown) [facility] (no value) (units unknown) (unknown) Result panel 422 (unknown) (no date) (unknown) [facility] (no value) (units unknown) (unknown) Result panel 423 (unknown) (no date) (unknown) [facility] (no value) (units unknown) (unknown) Result panel 424 (unknown) (no date) (unknown) [facility] (no value) (units unknown) (unknown) Result panel 425 (unknown) (no date) (unknown) [facility] (no value) (units unknown) (unknown) Result panel 426 (unknown) (no date) (unknown) [facility] (no value) (units unknown) (unknown) Result panel 427 (unknown) (no date) (unknown) [facility] (no value) (units unknown) (unknown) Result panel 428 (unknown) (no date) (unknown) [facility] (no value) (units unknown) (unknown) Result panel 429 (unknown) (no date) (unknown) [facility] (no value) (units unknown) (unknown) Result panel 430 (unknown) (no date) (unknown) [facility] (no value) (units unknown) (unknown) Result panel 431 (unknown) (no date) (unknown) [facility] (no value) (units unknown) (unknown) Result panel 432 (unknown) (no date) (unknown) [facility] (no value) (units unknown) (unknown) Result panel 433 (unknown) (no date) (unknown) [facility] (no value) (units unknown) (unknown) Result panel 434 (unknown) (no date) (unknown) [facility] (no value) (units unknown) (unknown) Result panel 435 (unknown) (no date) (unknown) [facility] (no value) (units unknown) (unknown) Result panel 436 (unknown) (no date) (unknown) [facility] (no value) (units unknown) (unknown) Result panel 437 (unknown) (no date) (unknown) [facility] (no value) (units unknown) (unknown) Result panel 438 (unknown) (no date) (unknown) [facility] (no value) (units unknown) (unknown) Result panel 439 (unknown) (no date) (unknown) [facility] (no value) (units unknown) (unknown) Result panel 440 (unknown) (no date) (unknown) [facility] (no value) (units unknown) (unknown) Result panel 441 (unknown) (no date) (unknown) [facility] (no value) (units unknown) (unknown) Result panel 442 (unknown) (no date) (unknown) [facility] (no value) (units unknown) (unknown) Result panel 443 (unknown) (no date) (unknown) [facility] (no value) (units unknown) (unknown) Result panel 444 (unknown) (no date) (unknown) [facility] (no value) (units unknown) (unknown) Result panel 445 (unknown) (no date) (unknown) [facility] (no value) (units unknown) (unknown) Result panel 446 (unknown) (no date) (unknown) [facility] (no value) (units unknown) (unknown) Result panel 447 (unknown) (no date) (unknown) [facility] (no value) (units unknown) (unknown) Result panel 448 (unknown) (no date) (unknown) [facility] (no value) (units unknown) (unknown) Result panel 449 (unknown) (no date) (unknown) [facility] (no value) (units unknown) (unknown) Result panel 450 (unknown) (no date) (unknown) [facility] (no value) (units unknown) (unknown) Result panel 451 (unknown) (no date) (unknown) [facility] (no value) (units unknown) (unknown) Result panel 452 (unknown) (no date) (unknown) [facility] (no value) (units unknown) (unknown) Result panel 453 (unknown) (no date) (unknown) [facility] (no value) (units unknown) (unknown) Result panel 454 (unknown) (no date) (unknown) [facility] (no value) (units unknown) (unknown) Result panel 455 (unknown) (no date) (unknown) [facility] (no value) (units unknown) (unknown) Result panel 456 (unknown) (no date) (unknown) [facility] (no value) (units unknown) (unknown) Result panel 457 (unknown) (no date) (unknown) [facility] (no value) (units unknown) (unknown) Result panel 458 (unknown) (no date) (unknown) [facility] (no value) (units unknown) (unknown) Result panel 459 (unknown) (no date) (unknown) [facility] (no value) (units unknown) (unknown) Result panel 460 (unknown) (no date) (unknown) [facility] (no value) (units unknown) (unknown) Result panel 461 (unknown) (no date) (unknown) [facility] (no value) (units unknown) (unknown) Result panel 462 (unknown) (no date) (unknown) [facility] (no value) (units unknown) (unknown) Result panel 463 (unknown) (no date) (unknown) [facility] (no value) (units unknown) (unknown) Result panel 464 (unknown) (no date) (unknown) [facility] (no value) (units unknown) (unknown) Result panel 465 (unknown) (no date) (unknown) [facility] (no value) (units unknown) (unknown) Result panel 466 (unknown) (no date) (unknown) [facility] (no value) (units unknown) (unknown) Result panel 467 (unknown) (no date) (unknown) [facility] (no value) (units unknown) (unknown) Result panel 468 (unknown) (no date) (unknown) [facility] (no value) (units unknown) (unknown) Result panel 469 (unknown) (no date) (unknown) [facility] (no value) (units unknown) (unknown) Result panel 470 (unknown) (no date) (unknown) [facility] (no value) (units unknown) (unknown) Result panel 471 (unknown) (no date) (unknown) [facility] (no value) (units unknown) (unknown) Result panel 472 (unknown) (no date) (unknown) [facility] (no value) (units unknown) (unknown) Result panel 473 (unknown) (no date) (unknown) [facility] (no value) (units unknown) (unknown) Result panel 474 (unknown) (no date) (unknown) [facility] (no value) (units unknown) (unknown) Result panel 475 (unknown) (no date) (unknown) [facility] (no value) (units unknown) (unknown) Result panel 476 (unknown) (no date) (unknown) [facility] (no value) (units unknown) (unknown) Result panel 477 (unknown) (no date) (unknown) [facility] (no value) (units unknown) (unknown) Result panel 478 (unknown) (no date) (unknown) [facility] (no value) (units unknown) (unknown) Result panel 479 (unknown) (no date) (unknown) [facility] (no value) (units unknown) (unknown) Result panel 480 (unknown) (no date) (unknown) [facility] (no value) (units unknown) (unknown) Result panel 481 (unknown) (no date) (unknown) [facility] (no value) (units unknown) (unknown) Result panel 482 (unknown) (no date) (unknown) [facility] (no value) (units unknown) (unknown) Result panel 483 (unknown) (no date) (unknown) [facility] (no value) (units unknown) (unknown) Result panel 484 (unknown) (no date) (unknown) [facility] (no value) (units unknown) (unknown) Result panel 485 (unknown) (no date) (unknown) [facility] (no value) (units unknown) (unknown) Result panel 486 (unknown) (no date) (unknown) [facility] (no value) (units unknown) (unknown) Result panel 487 (unknown) (no date) (unknown) [facility] (no value) (units unknown) (unknown) Result panel 488 (unknown) (no date) (unknown) [facility] (no value) (units unknown) (unknown) Result panel 489 (unknown) (no date) (unknown) [facility] (no value) (units unknown) (unknown) Result panel 490 (unknown) (no date) (unknown) [facility] (no value) (units unknown) (unknown) Result panel 491 (unknown) (no date) (unknown) [facility] (no value) (units unknown) (unknown) Result panel 492 (unknown) (no date) (unknown) [facility] (no value) (units unknown) (unknown) Result panel 493 (unknown) (no date) (unknown) [facility] (no value) (units unknown) (unknown) Result panel 494 (unknown) (no date) (unknown) [facility] (no value) (units unknown) (unknown) Result panel 495 (unknown) (no date) (unknown) [facility] (no value) (units unknown) (unknown) Result panel 496 (unknown) (no date) (unknown) [facility] (no value) (units unknown) (unknown) Result panel 497 (unknown) (no date) (unknown) [facility] (no value) (units unknown) (unknown) Result panel 498 (unknown) (no date) (unknown) [facility] (no value) (units unknown) (unknown) Result panel 499 (unknown) (no date) (unknown) [facility] (no value) (units unknown) (unknown) Result panel 500 (unknown) (no date) (unknown) [facility] (no value) (units unknown) (unknown) Result panel 501 (unknown) (no date) (unknown) [facility] (no value) (units unknown) (unknown) Result panel 502 (unknown) (no date) (unknown) [facility] (no value) (units unknown) (unknown) Result panel 503 (unknown) (no date) (unknown) [facility] (no value) (units unknown) (unknown) Result panel 504 (unknown) (no date) (unknown) [facility] (no value) (units unknown) (unknown) Result panel 505 (unknown) (no date) (unknown) [facility] (no value) (units unknown) (unknown) Result panel 506 (unknown) (no date) (unknown) [facility] (no value) (units unknown) (unknown) Result panel 507 (unknown) (no date) (unknown) [facility] (no value) (units unknown) (unknown) Result panel 508 (unknown) (no date) (unknown) [facility] (no value) (units unknown) (unknown) Result panel 509 (unknown) (no date) (unknown) [facility] (no value) (units unknown) (unknown) Result panel 510 (unknown) (no date) (unknown) [facility] (no value) (units unknown) (unknown) Result panel 511 (unknown) (no date) (unknown) [facility] (no value) (units unknown) (unknown) Result panel 512 (unknown) (no date) (unknown) [facility] (no value) (units unknown) (unknown) Result panel 513 (unknown) (no date) (unknown) [facility] (no value) (units unknown) (unknown) Result panel 514 (unknown) (no date) (unknown) [facility] (no value) (units unknown) (unknown) Result panel 515 (unknown) (no date) (unknown) [facility] (no value) (units unknown) (unknown) Result panel 516 (unknown) (no date) (unknown) [facility] (no value) (units unknown) (unknown) Result panel 517 (unknown) (no date) (unknown) [facility] (no value) (units unknown) (unknown) Result panel 518 (unknown) (no date) (unknown) [facility] (no value) (units unknown) (unknown) Result panel 519 (unknown) (no date) (unknown) [facility] (no value) (units unknown) (unknown) Result panel 520 (unknown) (no date) (unknown) [facility] (no value) (units unknown) (unknown) Result panel 521 (unknown) (no date) (unknown) [facility] (no value) (units unknown) (unknown) Result panel 522 (unknown) (no date) (unknown) [facility] (no value) (units unknown) (unknown) Result panel 523 (unknown) (no date) (unknown) [facility] (no value) (units unknown) (unknown) Result panel 524 (unknown) (no date) (unknown) [facility] (no value) (units unknown) (unknown) Result panel 525 (unknown) (no date) (unknown) [facility] (no value) (units unknown) (unknown) Result panel 526 (unknown) (no date) (unknown) [facility] (no value) (units unknown) (unknown) Result panel 527 (unknown) (no date) (unknown) [facility] (no value) (units unknown) (unknown) Result panel 528 (unknown) (no date) (unknown) [facility] (no value) (units unknown) (unknown) Result panel 529 (unknown) (no date) (unknown) [facility] (no value) (units unknown) (unknown) Result panel 530 (unknown) (no date) (unknown) [facility] (no value) (units unknown) (unknown) Result panel 531 (unknown) (no date) (unknown) [facility] (no value) (units unknown) (unknown) Result panel 532 (unknown) (no date) (unknown) [facility] (no value) (units unknown) (unknown) Result panel 533 (unknown) (no date) (unknown) [facility] (no value) (units unknown) (unknown) Result panel 534 (unknown) (no date) (unknown) [facility] (no value) (units unknown) (unknown) Result panel 535 (unknown) (no date) (unknown) [facility] (no value) (units unknown) (unknown) Result panel 536 (unknown) (no date) (unknown) [facility] (no value) (units unknown) (unknown) Result panel 537 (unknown) (no date) (unknown) [facility] (no value) (units unknown) (unknown) Result panel 538 (unknown) (no date) (unknown) [facility] (no value) (units unknown) (unknown) Result panel 539 (unknown) (no date) (unknown) [facility] (no value) (units unknown) (unknown) Result panel 540 (unknown) (no date) (unknown) [facility] (no value) (units unknown) (unknown) Result panel 541 (unknown) (no date) (unknown) [facility] (no value) (units unknown) (unknown) Result panel 542 (unknown) (no date) (unknown) [facility] (no value) (units unknown) (unknown) Result panel 543 (unknown) (no date) (unknown) [facility] (no value) (units unknown) (unknown) Result panel 544 (unknown) (no date) (unknown) [facility] (no value) (units unknown) (unknown) Result panel 545 (unknown) (no date) (unknown) [facility] (no value) (units unknown) (unknown) Result panel 546 (unknown) (no date) (unknown) [facility] (no value) (units unknown) (unknown) Result panel 547 (unknown) (no date) (unknown) [facility] (no value) (units unknown) (unknown) Result panel 548 (unknown) (no date) (unknown) [facility] (no value) (units unknown) (unknown) Result panel 549 (unknown) (no date) (unknown) [facility] (no value) (units unknown) (unknown) Result panel 550 (unknown) (no date) (unknown) [facility] (no value) (units unknown) (unknown) Result panel 551 (unknown) (no date) (unknown) [facility] (no value) (units unknown) (unknown) Result panel 552 (unknown) (no date) (unknown) [facility] (no value) (units unknown) (unknown) Result panel 553 (unknown) (no date) (unknown) [facility] (no value) (units unknown) (unknown) Result panel 554 (unknown) (no date) (unknown) [facility] (no value) (units unknown) (unknown) Result panel 555 (unknown) (no date) (unknown) [facility] (no value) (units unknown) (unknown) Result panel 556 (unknown) (no date) (unknown) [facility] (no value) (units unknown) (unknown) Result panel 557 (unknown) (no date) (unknown) [facility] (no value) (units unknown) (unknown) Result panel 558 (unknown) (no date) (unknown) [facility] (no value) (units unknown) (unknown) Result panel 559 (unknown) (no date) (unknown) [facility] (no value) (units unknown) (unknown) Result panel 560 (unknown) (no date) (unknown) [facility] (no value) (units unknown) (unknown) Result panel 561 (unknown) (no date) (unknown) [facility] (no value) (units unknown) (unknown) Result panel 562 (unknown) (no date) (unknown) [facility] (no value) (units unknown) (unknown) Result panel 563 (unknown) (no date) (unknown) [facility] (no value) (units unknown) (unknown) Result panel 564 (unknown) (no date) (unknown) [facility] (no value) (units unknown) (unknown) Result panel 565 (unknown) (no date) (unknown) [facility] (no value) (units unknown) (unknown) Result panel 566 (unknown) (no date) (unknown) [facility] (no value) (units unknown) (unknown) Result panel 567 (unknown) (no date) (unknown) [facility] (no value) (units unknown) (unknown) Result panel 568 (unknown) (no date) (unknown) [facility] (no value) (units unknown) (unknown) Result panel 569 (unknown) (no date) (unknown) [facility] (no value) (units unknown) (unknown) Result panel 570 (unknown) (no date) (unknown) [facility] (no value) (units unknown) (unknown) Result panel 571 (unknown) (no date) (unknown) [facility] (no value) (units unknown) (unknown) Result panel 572 (unknown) (no date) (unknown) [facility] (no value) (units unknown) (unknown) Result panel 573 (unknown) (no date) (unknown) [facility] (no value) (units unknown) (unknown) Result panel 574 (unknown) (no date) (unknown) [facility] (no value) (units unknown) (unknown) Result panel 575 (unknown) (no date) (unknown) [facility] (no value) (units unknown) (unknown) Result panel 576 (unknown) (no date) (unknown) [facility] (no value) (units unknown) (unknown) Result panel 577 (unknown) (no date) (unknown) [facility] (no value) (units unknown) (unknown) Result panel 578 (unknown) (no date) (unknown) [facility] (no value) (units unknown) (unknown) Result panel 579 (unknown) (no date) (unknown) [facility] (no value) (units unknown) (unknown) Result panel 580 (unknown) (no date) (unknown) [facility] (no value) (units unknown) (unknown) Result panel 581 (unknown) (no date) (unknown) [facility] (no value) (units unknown) (unknown) Result panel 582 (unknown) (no date) (unknown) [facility] (no value) (units unknown) (unknown) Result panel 583 (unknown) (no date) (unknown) [facility] (no value) (units unknown) (unknown) Result panel 584 (unknown) (no date) (unknown) [facility] (no value) (units unknown) (unknown) Result panel 585 (unknown) (no date) (unknown) [facility] (no value) (units unknown) (unknown) Result panel 586 (unknown) (no date) (unknown) [facility] (no value) (units unknown) (unknown) Result panel 587 (unknown) (no date) (unknown) [facility] (no value) (units unknown) (unknown) Result panel 588 (unknown) (no date) (unknown) [facility] (no value) (units unknown) (unknown) Result panel 589 (unknown) (no date) (unknown) [facility] (no value) (units unknown) (unknown) Result panel 590 (unknown) (no date) (unknown) [facility] (no value) (units unknown) (unknown) Result panel 591 (unknown) (no date) (unknown) [facility] (no value) (units unknown) (unknown) Result panel 592 (unknown) (no date) (unknown) [facility] (no value) (units unknown) (unknown) Result panel 593 (unknown) (no date) (unknown) [facility] (no value) (units unknown) (unknown) Result panel 594 (unknown) (no date) (unknown) [facility] (no value) (units unknown) (unknown) Result panel 595 (unknown) (no date) (unknown) [facility] (no value) (units unknown) (unknown) Result panel 596 (unknown) (no date) (unknown) [facility] (no value) (units unknown) (unknown) Result panel 597 (unknown) (no date) (unknown) [facility] (no value) (units unknown) (unknown) Result panel 598 (unknown) (no date) (unknown) [facility] (no value) (units unknown) (unknown) Result panel 599 (unknown) (no date) (unknown) [facility] (no value) (units unknown) (unknown) Result panel 600 (unknown) (no date) (unknown) [facility] (no value) (units unknown) (unknown) Result panel 601 (unknown) (no date) (unknown) [facility] (no value) (units unknown) (unknown) Result panel 602 (unknown) (no date) (unknown) [facility] (no value) (units unknown) (unknown) Result panel 603 (unknown) (no date) (unknown) [facility] (no value) (units unknown) (unknown) Result panel 604 (unknown) (no date) (unknown) [facility] (no value) (units unknown) (unknown) Result panel 605 (unknown) (no date) (unknown) [facility] (no value) (units unknown) (unknown) Result panel 606 (unknown) (no date) (unknown) [facility] (no value) (units unknown) (unknown) Result panel 607 (unknown) (no date) (unknown) [facility] (no value) (units unknown) (unknown) Result panel 608 (unknown) (no date) (unknown) [facility] (no value) (units unknown) (unknown) Result panel 609 (unknown) (no date) (unknown) [facility] (no value) (units unknown) (unknown) Result panel 610 (unknown) (no date) (unknown) [facility] (no value) (units unknown) (unknown) Result panel 611 (unknown) (no date) (unknown) [facility] (no value) (units unknown) (unknown) Result panel 612 (unknown) (no date) (unknown) [facility] (no value) (units unknown) (unknown) Result panel 613 (unknown) (no date) (unknown) [facility] (no value) (units unknown) (unknown) Result panel 614 (unknown) (no date) (unknown) [facility] (no value) (units unknown) (unknown) Result panel 615 (unknown) (no date) (unknown) [facility] (no value) (units unknown) (unknown) Result panel 616 (unknown) (no date) (unknown) [facility] (no value) (units unknown) (unknown) Result panel 617 (unknown) (no date) (unknown) [facility] (no value) (units unknown) (unknown) Result panel 618 (unknown) (no date) (unknown) [facility] (no value) (units unknown) (unknown) Result panel 619 (unknown) (no date) (unknown) [facility] (no value) (units unknown) (unknown) Result panel 620 (unknown) (no date) (unknown) [facility] (no value) (units unknown) (unknown) Result panel 621 (unknown) (no date) (unknown) [facility] (no value) (units unknown) (unknown) Result panel 622 (unknown) (no date) (unknown) [facility] (no value) (units unknown) (unknown) Result panel 623 (unknown) (no date) (unknown) [facility] (no value) (units unknown) (unknown) Result panel 624 (unknown) (no date) (unknown) [facility] (no value) (units unknown) (unknown) Result panel 625 (unknown) (no date) (unknown) [facility] (no value) (units unknown) (unknown) Result panel 626 (unknown) (no date) (unknown) [facility] (no value) (units unknown) (unknown) Result panel 627 (unknown) (no date) (unknown) [facility] (no value) (units unknown) (unknown) Result panel 628 (unknown) (no date) (unknown) [facility] (no value) (units unknown) (unknown) Result panel 629 (unknown) (no date) (unknown) [facility] (no value) (units unknown) (unknown) Result panel 630 (unknown) (no date) (unknown) [facility] (no value) (units unknown) (unknown) Result panel 631 (unknown) (no date) (unknown) [facility] (no value) (units unknown) (unknown) Result panel 632 (unknown) (no date) (unknown) [facility] (no value) (units unknown) (unknown) Result panel 633 (unknown) (no date) (unknown) [facility] (no value) (units unknown) (unknown) Result panel 634 (unknown) (no date) (unknown) [facility] (no value) (units unknown) (unknown) Result panel 635 (unknown) (no date) (unknown) [facility] (no value) (units unknown) (unknown) Result panel 636 (unknown) (no date) (unknown) [facility] (no value) (units unknown) (unknown) Result panel 637 (unknown) (no date) (unknown) [facility] (no value) (units unknown) (unknown) Result panel 638 (unknown) (no date) (unknown) [facility] (no value) (units unknown) (unknown) Result panel 639 (unknown) (no date) (unknown) [facility] (no value) (units unknown) (unknown) Result panel 640 (unknown) (no date) (unknown) [facility] (no value) (units unknown) (unknown) Result panel 641 (unknown) (no date) (unknown) [facility] (no value) (units unknown) (unknown) Result panel 642 (unknown) (no date) (unknown) [facility] (no value) (units unknown) (unknown) Result panel 643 (unknown) (no date) (unknown) [facility] (no value) (units unknown) (unknown) Result panel 644 (unknown) (no date) (unknown) [facility] (no value) (units unknown) (unknown) Result panel 645 (unknown) (no date) (unknown) [facility] (no value) (units unknown) (unknown) Result panel 646 (unknown) (no date) (unknown) [facility] (no value) (units unknown) (unknown) Result panel 647 (unknown) (no date) (unknown) [facility] (no value) (units unknown) (unknown) Result panel 648 (unknown) (no date) (unknown) [facility] (no value) (units unknown) (unknown) Result panel 649 (unknown) (no date) (unknown) [facility] (no value) (units unknown) (unknown) Result panel 650 (unknown) (no date) (unknown) [facility] (no value) (units unknown) (unknown) Result panel 651 (unknown) (no date) (unknown) [facility] (no value) (units unknown) (unknown) Result panel 652 (unknown) (no date) (unknown) [facility] (no value) (units unknown) (unknown) Result panel 653 (unknown) (no date) (unknown) [facility] (no value) (units unknown) (unknown) Result panel 654 (unknown) (no date) (unknown) [facility] (no value) (units unknown) (unknown) Result panel 655 (unknown) (no date) (unknown) [facility] (no value) (units unknown) (unknown) Result panel 656 (unknown) (no date) (unknown) [facility] (no value) (units unknown) (unknown) Result panel 657 (unknown) (no date) (unknown) [facility] (no value) (units unknown) (unknown) Result panel 658 (unknown) (no date) (unknown) [facility] (no value) (units unknown) (unknown) Result panel 659 (unknown) (no date) (unknown) [facility] (no value) (units unknown) (unknown) Result panel 660 (unknown) (no date) (unknown) [facility] (no value) (units unknown) (unknown) Result panel 661 (unknown) (no date) (unknown) [facility] (no value) (units unknown) (unknown) Result panel 662 (unknown) (no date) (unknown) [facility] (no value) (units unknown) (unknown) Result panel 663 (unknown) (no date) (unknown) [facility] (no value) (units unknown) (unknown) Result panel 664 (unknown) (no date) (unknown) [facility] (no value) (units unknown) (unknown) Result panel 665 (unknown) (no date) (unknown) [facility] (no value) (units unknown) (unknown) Result panel 666 (unknown) (no date) (unknown) [facility] (no value) (units unknown) (unknown) Result panel 667 (unknown) (no date) (unknown) [facility] (no value) (units unknown) (unknown) Result panel 668 (unknown) (no date) (unknown) [facility] (no value) (units unknown) (unknown) Result panel 669 (unknown) (no date) (unknown) [facility] (no value) (units unknown) (unknown) Result panel 670 (unknown) (no date) (unknown) [facility] (no value) (units unknown) (unknown) Result panel 671 (unknown) (no date) (unknown) [facility] (no value) (units unknown) (unknown) Result panel 672 (unknown) (no date) (unknown) [facility] (no value) (units unknown) (unknown) Result panel 673 (unknown) (no date) (unknown) [facility] (no value) (units unknown) (unknown) Result panel 674 (unknown) (no date) (unknown) [facility] (no value) (units unknown) (unknown) Result panel 675 (unknown) (no date) (unknown) [facility] (no value) (units unknown) (unknown) Result panel 676 (unknown) (no date) (unknown) [facility] (no value) (units unknown) (unknown) Result panel 677 (unknown) (no date) (unknown) [facility] (no value) (units unknown) (unknown) Result panel 678 (unknown) (no date) (unknown) [facility] (no value) (units unknown) (unknown) Result panel 679 (unknown) (no date) (unknown) [facility] (no value) (units unknown) (unknown) Result panel 680 (unknown) (no date) (unknown) [facility] (no value) (units unknown) (unknown) Result panel 681 (unknown) (no date) (unknown) [facility] (no value) (units unknown) (unknown) Result panel 682 (unknown) (no date) (unknown) [facility] (no value) (units unknown) (unknown) Result panel 683 (unknown) (no date) (unknown) [facility] (no value) (units unknown) (unknown) Result panel 684 (unknown) (no date) (unknown) [facility] (no value) (units unknown) (unknown) Result panel 685 (unknown) (no date) (unknown) [facility] (no value) (units unknown) (unknown) Result panel 686 (unknown) (no date) (unknown) [facility] (no value) (units unknown) (unknown) Result panel 687 (unknown) (no date) (unknown) [facility] (no value) (units unknown) (unknown) Result panel 688 (unknown) (no date) (unknown) [facility] (no value) (units unknown) (unknown) Result panel 689 (unknown) (no date) (unknown) [facility] (no value) (units unknown) (unknown) Result panel 690 (unknown) (no date) (unknown) [facility] (no value) (units unknown) (unknown) Result panel 691 (unknown) (no date) (unknown) [facility] (no value) (units unknown) (unknown) Result panel 692 (unknown) (no date) (unknown) [facility] (no value) (units unknown) (unknown) Result panel 693 (unknown) (no date) (unknown) [facility] (no value) (units unknown) (unknown) Result panel 694 (unknown) (no date) (unknown) [facility] (no value) (units unknown) (unknown) Result panel 695 (unknown) (no date) (unknown) [facility] (no value) (units unknown) (unknown) Result panel 696 (unknown) (no date) (unknown) [facility] (no value) (units unknown) (unknown) Result panel 697 (unknown) (no date) (unknown) [facility] (no value) (units unknown) (unknown) Result panel 698 (unknown) (no date) (unknown) [facility] (no value) (units unknown) (unknown) Result panel 699 (unknown) (no date) (unknown) [facility] (no value) (units unknown) (unknown) Result panel 700 (unknown) (no date) (unknown) [facility] (no value) (units unknown) (unknown) Result panel 701 (unknown) (no date) (unknown) [facility] (no value) (units unknown) (unknown) Result panel 702 (unknown) (no date) (unknown) [facility] (no value) (units unknown) (unknown) Result panel 703 (unknown) (no date) (unknown) [facility] (no value) (units unknown) (unknown) Result panel 704 (unknown) (no date) (unknown) [facility] (no value) (units unknown) (unknown) Result panel 705 (unknown) (no date) (unknown) [facility] (no value) (units unknown) (unknown) Result panel 706 (unknown) (no date) (unknown) [facility] (no value) (units unknown) (unknown) Result panel 707 (unknown) (no date) (unknown) [facility] (no value) (units unknown) (unknown) Result panel 708 (unknown) (no date) (unknown) [facility] (no value) (units unknown) (unknown) Result panel 709 (unknown) (no date) (unknown) [facility] (no value) (units unknown) (unknown) Result panel 710 (unknown) (no date) (unknown) [facility] (no value) (units unknown) (unknown) Result panel 711 (unknown) (no date) (unknown) [facility] (no value) (units unknown) (unknown) Result panel 712 (unknown) (no date) (unknown) [facility] (no value) (units unknown) (unknown) Result panel 713 (unknown) (no date) (unknown) [facility] (no value) (units unknown) (unknown) Result panel 714 (unknown) (no date) (unknown) [facility] (no value) (units unknown) (unknown) Result panel 715 (unknown) (no date) (unknown) [facility] (no value) (units unknown) (unknown) Result panel 716 (unknown) (no date) (unknown) [facility] (no value) (units unknown) (unknown) Result panel 717 (unknown) (no date) (unknown) [facility] (no value) (units unknown) (unknown) Result panel 718 (unknown) (no date) (unknown) [facility] (no value) (units unknown) (unknown) Result panel 719 (unknown) (no date) (unknown) [facility] (no value) (units unknown) (unknown) Result panel 720 (unknown) (no date) (unknown) [facility] (no value) (units unknown) (unknown) Result panel 721 (unknown) (no date) (unknown) [facility] (no value) (units unknown) (unknown) Result panel 722 (unknown) (no date) (unknown) [facility] (no value) (units unknown) (unknown) Result panel 723 (unknown) (no date) (unknown) [facility] (no value) (units unknown) (unknown) Result panel 724 (unknown) (no date) (unknown) [facility] (no value) (units unknown) (unknown) Result panel 725 (unknown) (no date) (unknown) [facility] (no value) (units unknown) (unknown) Result panel 726 (unknown) (no date) (unknown) [facility] (no value) (units unknown) (unknown) Result panel 727 (unknown) (no date) (unknown) [facility] (no value) (units unknown) (unknown) Result panel 728 (unknown) (no date) (unknown) [facility] (no value) (units unknown) (unknown) Result panel 729 (unknown) (no date) (unknown) [facility] (no value) (units unknown) (unknown) Result panel 730 (unknown) (no date) (unknown) [facility] (no value) (units unknown) (unknown) Result panel 731 (unknown) (no date) (unknown) [facility] (no value) (units unknown) (unknown) Result panel 732 (unknown) (no date) (unknown) [facility] (no value) (units unknown) (unknown) Result panel 733 (unknown) (no date) (unknown) [facility] (no value) (units unknown) (unknown) Result panel 734 (unknown) (no date) (unknown) [facility] (no value) (units unknown) (unknown) Result panel 735 (unknown) (no date) (unknown) [facility] (no value) (units unknown) (unknown) Result panel 736 (unknown) (no date) (unknown) [facility] (no value) (units unknown) (unknown) Result panel 737 (unknown) (no date) (unknown) [facility] (no value) (units unknown) (unknown) Result panel 738 (unknown) (no date) (unknown) [facility] (no value) (units unknown) (unknown) Result panel 739 (unknown) (no date) (unknown) [facility] (no value) (units unknown) (unknown) Result panel 740 (unknown) (no date) (unknown) [facility] (no value) (units unknown) (unknown) Result panel 741 (unknown) (no date) (unknown) [facility] (no value) (units unknown) (unknown) Result panel 742 (unknown) (no date) (unknown) [facility] (no value) (units unknown) (unknown) Result panel 743 (unknown) (no date) (unknown) [facility] (no value) (units unknown) (unknown) Result panel 744 (unknown) (no date) (unknown) [facility] (no value) (units unknown) (unknown) Result panel 745 (unknown) (no date) (unknown) [facility] (no value) (units unknown) (unknown) Result panel 746 (unknown) (no date) (unknown) [facility] (no value) (units unknown) (unknown) Result panel 747 (unknown) (no date) (unknown) [facility] (no value) (units unknown) (unknown) Result panel 748 (unknown) (no date) (unknown) [facility] (no value) (units unknown) (unknown) Result panel 749 (unknown) (no date) (unknown) [facility] (no value) (units unknown) (unknown) Result panel 750 (unknown) (no date) (unknown) [facility] (no value) (units unknown) (unknown) Result panel 751 (unknown) (no date) (unknown) [facility] (no value) (units unknown) (unknown) Result panel 752 (unknown) (no date) (unknown) [facility] (no value) (units unknown) (unknown) Result panel 753 (unknown) (no date) (unknown) [facility] (no value) (units unknown) (unknown) Result panel 754 (unknown) (no date) (unknown) [facility] (no value) (units unknown) (unknown) Result panel 755 (unknown) (no date) (unknown) [facility] (no value) (units unknown) (unknown) Result panel 756 (unknown) (no date) (unknown) [facility] (no value) (units unknown) (unknown) Result panel 757 (unknown) (no date) (unknown) [facility] (no value) (units unknown) (unknown) Result panel 758 (unknown) (no date) (unknown) [facility] (no value) (units unknown) (unknown) Result panel 759 (unknown) (no date) (unknown) [facility] (no value) (units unknown) (unknown) Result panel 760 (unknown) (no date) (unknown) [facility] (no value) (units unknown) (unknown) Result panel 761 (unknown) (no date) (unknown) [facility] (no value) (units unknown) (unknown) Result panel 762 (unknown) (no date) (unknown) [facility] (no value) (units unknown) (unknown) Result panel 763 (unknown) (no date) (unknown) [facility] (no value) (units unknown) (unknown) Result panel 764 (unknown) (no date) (unknown) [facility] (no value) (units unknown) (unknown) Result panel 765 (unknown) (no date) (unknown) [facility] (no value) (units unknown) (unknown) Result panel 766 (unknown) (no date) (unknown) [facility] (no value) (units unknown) (unknown) Result panel 767 (unknown) (no date) (unknown) [facility] (no value) (units unknown) (unknown) Result panel 768 (unknown) (no date) (unknown) [facility] (no value) (units unknown) (unknown) Result panel 769 (unknown) (no date) (unknown) [facility] (no value) (units unknown) (unknown) Result panel 770 (unknown) (no date) (unknown) [facility] (no value) (units unknown) (unknown) Result panel 771 (unknown) (no date) (unknown) [facility] (no value) (units unknown) (unknown) Result panel 772 (unknown) (no date) (unknown) [facility] (no value) (units unknown) (unknown) Result panel 773 (unknown) (no date) (unknown) [facility] [facility] (no value) (units unknown) (unknown) Result panel 774 (unknown) (no date) (unknown) [facility] (no value) (units unknown) (unknown) Result panel 775 (unknown) (no date) (unknown) [facility] (no value) (units unknown) (unknown) Result panel 776 (unknown) (no date) (unknown) [facility] (no value) (units unknown) (unknown) Result panel 777 (unknown) (no date) (unknown) [facility] (no value) (units unknown) (unknown) Result panel 778 (unknown) (no date) (unknown) [facility] (no value) (units unknown) (unknown) Result panel 779 (unknown) (no date) (unknown) [facility] (no value) (units unknown) (unknown) Result panel 780 (unknown) (no date) (unknown) [facility] (no value) (units unknown) (unknown) Result panel 781 (unknown) (no date) (unknown) [facility] (no value) (units unknown) (unknown) Result panel 782 (unknown) (no date) (unknown) [facility] (no value) (units unknown) (unknown) Result panel 783 (unknown) (no date) (unknown) [facility] (no value) (units unknown) (unknown) Result panel 784 (unknown) (no date) (unknown) [facility] (no value) (units unknown) (unknown) Result panel 785 (unknown) (no date) (unknown) [facility] (no value) (units unknown) (unknown) Result panel 786 (unknown) (no date) (unknown) [facility] (no value) (units unknown) (unknown) Result panel 787 (unknown) (no date) (unknown) [facility] (no value) (units unknown) (unknown) Result panel 788 (unknown) (no date) (unknown) [facility] (no value) (units unknown) (unknown) Result panel 789 (unknown) (no date) (unknown) [facility] (no value) (units unknown) (unknown) Result panel 790 (unknown) (no date) (unknown) [facility] (no value) (units unknown) (unknown) Result panel 791 (unknown) (no date) (unknown) [facility] (no value) (units unknown) (unknown) Result panel 792 (unknown) (no date) (unknown) [facility] (no value) (units unknown) (unknown) Result panel 793 (unknown) (no date) (unknown) [facility] (no value) (units unknown) (unknown) Result panel 794 (unknown) (no date) (unknown) [facility] (no value) (units unknown) (unknown) Result panel 795 (unknown) (no date) (unknown) [facility] (no value) (units unknown) (unknown) Result panel 796 (unknown) (no date) (unknown) [facility] (no value) (units unknown) (unknown) Result panel 797 (unknown) (no date) (unknown) [facility] (no value) (units unknown) (unknown) Result panel 798 (unknown) (no date) (unknown) [facility] (no value) (units unknown) (unknown) Result panel 799 (unknown) (no date) (unknown) [facility] (no value) (units unknown) (unknown) Result panel 800 (unknown) (no date) (unknown) [facility] (no value) (units unknown) (unknown) Result panel 801 (unknown) (no date) (unknown) [facility] (no value) (units unknown) (unknown) Result panel 802 (unknown) (no date) (unknown) [facility] (no value) (units unknown) (unknown) Result panel 803 (unknown) (no date) (unknown) [facility] (no value) (units unknown) (unknown) Result panel 804 (unknown) (no date) (unknown) [facility] (no value) (units unknown) (unknown) Result panel 805 (unknown) (no date) (unknown) [facility] (no value) (units unknown) (unknown) Result panel 806 (unknown) (no date) (unknown) [facility] (no value) (units unknown) (unknown) Result panel 807 (unknown) (no date) (unknown) [facility] (no value) (units unknown) (unknown) Result panel 808 (unknown) (no date) (unknown) [facility] (no value) (units unknown) (unknown) Result panel 809 (unknown) (no date) (unknown) [facility] (no value) (units unknown) (unknown) Result panel 810 (unknown) (no date) (unknown) [facility] (no value) (units unknown) (unknown) Result panel 811 (unknown) (no date) (unknown) [facility] (no value) (units unknown) (unknown) Result panel 812 (unknown) (no date) (unknown) [facility] (no value) (units unknown) (unknown) Result panel 813 (unknown) (no date) (unknown) [facility] (no value) (units unknown) (unknown) Result panel 814 (unknown) (no date) (unknown) [facility] (no value) (units unknown) (unknown) Result panel 815 (unknown) (no date) (unknown) [facility] (no value) (units unknown) (unknown) Result panel 816 (unknown) (no date) (unknown) [facility] (no value) (units unknown) (unknown) Result panel 817 (unknown) (no date) (unknown) [facility] (no value) (units unknown) (unknown) Result panel 818 (unknown) (no date) (unknown) [facility] (no value) (units unknown) (unknown) Result panel 819 (unknown) (no date) (unknown) [facility] (no value) (units unknown) (unknown) Result panel 820 (unknown) (no date) (unknown) [facility] (no value) (units unknown) (unknown) Result panel 821 (unknown) (no date) (unknown) [facility] (no value) (units unknown) (unknown) Result panel 822 (unknown) (no date) (unknown) [facility] (no value) (units unknown) (unknown) Result panel 823 (unknown) (no date) (unknown) [facility] (no value) (units unknown) (unknown) Result panel 824 (unknown) (no date) (unknown) [facility] (no value) (units unknown) (unknown) Result panel 825 (unknown) (no date) (unknown) [facility] (no value) (units unknown) (unknown) Result panel 826 (unknown) (no date) (unknown) [facility] (no value) (units unknown) (unknown) Result panel 827 (unknown) (no date) (unknown) [facility] (no value) (units unknown) (unknown) Result panel 828 (unknown) (no date) (unknown) [facility] (no value) (units unknown) (unknown) Result panel 829 (unknown) (no date) (unknown) [facility] (no value) (units unknown) (unknown) Result panel 830 (unknown) (no date) (unknown) [facility] (no value) (units unknown) (unknown) Result panel 831 (unknown) (no date) (unknown) [facility] (no value) (units unknown) (unknown) Result panel 832 (unknown) (no date) (unknown) [facility] (no value) (units unknown) (unknown) Result panel 833 (unknown) (no date) (unknown) [facility] (no value) (units unknown) (unknown) Result panel 834 (unknown) (no date) (unknown) [facility] (no value) (units unknown) (unknown) Result panel 835 (unknown) (no date) (unknown) [facility] (no value) (units unknown) (unknown) Result panel 836 (unknown) (no date) (unknown) [facility] (no value) (units unknown) (unknown) Result panel 837 (unknown) (no date) (unknown) [facility] (no value) (units unknown) (unknown) Result panel 838 (unknown) (no date) (unknown) [facility] (no value) (units unknown) (unknown) Result panel 839 (unknown) (no date) (unknown) [facility] (no value) (units unknown) (unknown) Result panel 840 (unknown) (no date) (unknown) [facility] (no value) (units unknown) (unknown) Result panel 841 (unknown) (no date) (unknown) [facility] (no value) (units unknown) (unknown) Result panel 842 (unknown) (no date) (unknown) [facility] (no value) (units unknown) (unknown) Result panel 843 (unknown) (no date) (unknown) [facility] (no value) (units unknown) (unknown) Result panel 844 (unknown) (no date) (unknown) [facility] (no value) (units unknown) (unknown) Result panel 845 (unknown) (no date) (unknown) [facility] (no value) (units unknown) (unknown) Result panel 846 (unknown) (no date) (unknown) [facility] (no value) (units unknown) (unknown) Result panel 847 (unknown) (no date) (unknown) [facility] (no value) (units unknown) (unknown) Result panel 848 (unknown) (no date) (unknown) [facility] (no value) (units unknown) (unknown) Result panel 849 (unknown) (no date) (unknown) [facility] (no value) (units unknown) (unknown) Result panel 850 (unknown) (no date) (unknown) [facility] (no value) (units unknown) (unknown) Result panel 851 (unknown) (no date) (unknown) [facility] (no value) (units unknown) (unknown) Result panel 852 (unknown) (no date) (unknown) [facility] (no value) (units unknown) (unknown) Result panel 853 (unknown) (no date) (unknown) [facility] (no value) (units unknown) (unknown) Result panel 854 (unknown) (no date) (unknown) [facility] (no value) (units unknown) (unknown) Result panel 855 (unknown) (no date) (unknown) [facility] (no value) (units unknown) (unknown) Result panel 856 (unknown) (no date) (unknown) [facility] (no value) (units unknown) (unknown) Result panel 857 (unknown) (no date) (unknown) [facility] (no value) (units unknown) (unknown) Result panel 858 (unknown) (no date) (unknown) [facility] (no value) (units unknown) (unknown) Result panel 859 (unknown) (no date) (unknown) [facility] (no value) (units unknown) (unknown) Result panel 860 (unknown) (no date) (unknown) [facility] (no value) (units unknown) (unknown) Result panel 861 (unknown) (no date) (unknown) [facility] (no value) (units unknown) (unknown) Result panel 862 (unknown) (no date) (unknown) [facility] (no value) (units unknown) (unknown) Result panel 863 (unknown) (no date) (unknown) [facility] (no value) (units unknown) (unknown) Result panel 864 (unknown) (no date) (unknown) [facility] (no value) (units unknown) (unknown) Result panel 865 (unknown) (no date) (unknown) [facility] (no value) (units unknown) (unknown) Result panel 866 (unknown) (no date) (unknown) [facility] (no value) (units unknown) (unknown) Result panel 867 (unknown) (no date) (unknown) [facility] (no value) (units unknown) (unknown) Result panel 868 (unknown) (no date) (unknown) [facility] (no value) (units unknown) (unknown) Result panel 869 (unknown) (no date) (unknown) [facility] (no value) (units unknown) (unknown) Result panel 870 (unknown) (no date) (unknown) [facility] (no value) (units unknown) (unknown) Result panel 871 (unknown) (no date) (unknown) [facility] (no value) (units unknown) (unknown) Result panel 872 (unknown) (no date) (unknown) [facility] (no value) (units unknown) (unknown) Result panel 873 (unknown) (no date) (unknown) [facility] (no value) (units unknown) (unknown) Result panel 874 (unknown) (no date) (unknown) [facility] (no value) (units unknown) (unknown) Result panel 875 (unknown) (no date) (unknown) [facility] (no value) (units unknown) (unknown) Result panel 876 (unknown) (no date) (unknown) [facility] (no value) (units unknown) (unknown) Result panel 877 (unknown) (no date) (unknown) [facility] (no value) (units unknown) (unknown) Result panel 878 (unknown) (no date) (unknown) [facility] (no value) (units unknown) (unknown) Result panel 879 (unknown) (no date) (unknown) [facility] (no value) (units unknown) (unknown) Result panel 880 (unknown) (no date) (unknown) [facility] (no value) (units unknown) (unknown) Result panel 881 (unknown) (no date) (unknown) [facility] (no value) (units unknown) (unknown) Result panel 882 (unknown) (no date) (unknown) [facility] (no value) (units unknown) (unknown) Result panel 883 (unknown) (no date) (unknown) [facility] (no value) (units unknown) (unknown) Result panel 884 (unknown) (no date) (unknown) [facility] (no value) (units unknown) (unknown) Result panel 885 (unknown) (no date) (unknown) [facility] (no value) (units unknown) (unknown) Result panel 886 (unknown) (no date) (unknown) [facility] (no value) (units unknown) (unknown) Result panel 887 (unknown) (no date) (unknown) [facility] (no value) (units unknown) (unknown) Result panel 888 (unknown) (no date) (unknown) [facility] (no value) (units unknown) (unknown) Result panel 889 (unknown) (no date) (unknown) [facility] (no value) (units unknown) (unknown) Result panel 890 (unknown) (no date) (unknown) [facility] (no value) (units unknown) (unknown) Result panel 891 (unknown) (no date) (unknown) [facility] (no value) (units unknown) (unknown) Result panel 892 (unknown) (no date) (unknown) [facility] (no value) (units unknown) (unknown) Result panel 893 (unknown) (no date) (unknown) [facility] (no value) (units unknown) (unknown) Result panel 894 (unknown) (no date) (unknown) [facility] (no value) (units unknown) (unknown) Result panel 895 (unknown) (no date) (unknown) [facility] (no value) (units unknown) (unknown) Result panel 896 (unknown) (no date) (unknown) [facility] (no value) (units unknown) (unknown) Result panel 897 (unknown) (no date) (unknown) [facility] (no value) (units unknown) (unknown) Result panel 898 (unknown) (no date) (unknown) [facility] (no value) (units unknown) (unknown) Result panel 899 (unknown) (no date) (unknown) [facility] (no value) (units unknown) (unknown) Result panel 900 (unknown) (no date) (unknown) [facility] (no value) (units unknown) (unknown) Result panel 901 (unknown) (no date) (unknown) [facility] (no value) (units unknown) (unknown) Result panel 902 (unknown) (no date) (unknown) [facility] (no value) (units unknown) (unknown) Result panel 903 (unknown) (no date) (unknown) [facility] (no value) (units unknown) (unknown) Result panel 904 (unknown) (no date) (unknown) [facility] (no value) (units unknown) (unknown) Result panel 905 (unknown) (no date) (unknown) [facility] (no value) (units unknown) (unknown) Result panel 906 (unknown) (no date) (unknown) [facility] (no value) (units unknown) (unknown) Result panel 907 (unknown) (no date) (unknown) [facility] (no value) (units unknown) (unknown) Result panel 908 (unknown) (no date) (unknown) [facility] (no value) (units unknown) (unknown) Result panel 909 (unknown) (no date) (unknown) [facility] (no value) (units unknown) (unknown) Result panel 910 (unknown) (no date) (unknown) [facility] (no value) (units unknown) (unknown) Result panel 911 (unknown) (no date) (unknown) [facility] (no value) (units unknown) (unknown) Result panel 912 (unknown) (no date) (unknown) [facility] (no value) (units unknown) (unknown) Result panel 913 (unknown) (no date) (unknown) [facility] (no value) (units unknown) (unknown) Result panel 914 (unknown) (no date) (unknown) [facility] (no value) (units unknown) (unknown) Result panel 915 (unknown) (no date) (unknown) [facility] (no value) (units unknown) (unknown) Result panel 916 (unknown) (no date) (unknown) [facility] (no value) (units unknown) (unknown) Result panel 917 (unknown) (no date) (unknown) [facility] (no value) (units unknown) (unknown) Result panel 918 (unknown) (no date) (unknown) [facility] (no value) (units unknown) (unknown) Result panel 919 (unknown) (no date) (unknown) [facility] (no value) (units unknown) (unknown) Result panel 920 (unknown) (no date) (unknown) [facility] (no value) (units unknown) (unknown) Result panel 921 (unknown) (no date) (unknown) [facility] (no value) (units unknown) (unknown) Result panel 922 (unknown) (no date) (unknown) [facility] (no value) (units unknown) (unknown) Result panel 923 (unknown) (no date) (unknown) [facility] (no value) (units unknown) (unknown) Result panel 924 (unknown) (no date) (unknown) [facility] (no value) (units unknown) (unknown) Result panel 925 (unknown) (no date) (unknown) [facility] (no value) (units unknown) (unknown) Result panel 926 (unknown) (no date) (unknown) [facility] (no value) (units unknown) (unknown) Result panel 927 (unknown) (no date) (unknown) [facility] (no value) (units unknown) (unknown) Result panel 928 (unknown) (no date) (unknown) [facility] (no value) (units unknown) (unknown) Result panel 929 (unknown) (no date) (unknown) [facility] (no value) (units unknown) (unknown) Result panel 930 (unknown) (no date) (unknown) [facility] (no value) (units unknown) (unknown) Result panel 931 (unknown) (no date) (unknown) [facility] (no value) (units unknown) (unknown) Result panel 932 (unknown) (no date) (unknown) [facility] (no value) (units unknown) (unknown) Result panel 933 (unknown) (no date) (unknown) [facility] (no value) (units unknown) (unknown) Result panel 934 (unknown) (no date) (unknown) [facility] (no value) (units unknown) (unknown) Result panel 935 (unknown) (no date) (unknown) [facility] (no value) (units unknown) (unknown) Result panel 936 (unknown) (no date) (unknown) [facility] (no value) (units unknown) (unknown) Result panel 937 (unknown) (no date) (unknown) [facility] (no value) (units unknown) (unknown) Result panel 938 (unknown) (no date) (unknown) [facility] (no value) (units unknown) (unknown) Result panel 939 (unknown) (no date) (unknown) [facility] (no value) (units unknown) (unknown) Result panel 940 (unknown) (no date) (unknown) [facility] (no value) (units unknown) (unknown) Result panel 941 (unknown) (no date) (unknown) [facility] (no value) (units unknown) (unknown) Result panel 942 (unknown) (no date) (unknown) [facility] (no value) (units unknown) (unknown) Result panel 943 (unknown) (no date) (unknown) [facility] (no value) (units unknown) (unknown) Result panel 944 (unknown) (no date) (unknown) [facility] (no value) (units unknown) (unknown) Result panel 945 (unknown) (no date) (unknown) [facility] (no value) (units unknown) (unknown) Result panel 946 (unknown) (no date) (unknown) [facility] (no value) (units unknown) (unknown) Result panel 947 (unknown) (no date) (unknown) [facility] (no value) (units unknown) (unknown) Result panel 948 (unknown) (no date) (unknown) [facility] (no value) (units unknown) (unknown) Result panel 949 (unknown) (no date) (unknown) [facility] (no value) (units unknown) (unknown) Result panel 950 (unknown) (no date) (unknown) [facility] (no value) (units unknown) (unknown) Result panel 951 (unknown) (no date) (unknown) [facility] (no value) (units unknown) (unknown) Result panel 952 (unknown) (no date) (unknown) [facility] (no value) (units unknown) (unknown) Result panel 953 (unknown) (no date) (unknown) [facility] (no value) (units unknown) (unknown) Result panel 954 (unknown) (no date) (unknown) [facility] (no value) (units unknown) (unknown) Result panel 955 (unknown) (no date) (unknown) [facility] (no value) (units unknown) (unknown) Result panel 956 (unknown) (no date) (unknown) [facility] (no value) (units unknown) (unknown) Result panel 957 (unknown) (no date) (unknown) [facility] (no value) (units unknown) (unknown) Result panel 958 (unknown) (no date) (unknown) [facility] (no value) (units unknown) (unknown) Result panel 959 (unknown) (no date) (unknown) [facility] (no value) (units unknown) (unknown) Result panel 960 (unknown) (no date) (unknown) [facility] (no value) (units unknown) (unknown) Result panel 961 (unknown) (no date) (unknown) [facility] (no value) (units unknown) (unknown) Result panel 962 (unknown) (no date) (unknown) [facility] (no value) (units unknown) (unknown) Result panel 963 (unknown) (no date) (unknown) [facility] (no value) (units unknown) (unknown) Result panel 964 (unknown) (no date) (unknown) [facility] (no value) (units unknown) (unknown) Result panel 965 (unknown) (no date) (unknown) [facility] (no value) (units unknown) (unknown) Result panel 966 (unknown) (no date) (unknown) [facility] (no value) (units unknown) (unknown) Result panel 967 (unknown) (no date) (unknown) [facility] (no value) (units unknown) (unknown) Result panel 968 (unknown) (no date) (unknown) [facility] (no value) (units unknown) (unknown) Result panel 969 (unknown) (no date) (unknown) [facility] (no value) (units unknown) (unknown) Result panel 970 (unknown) (no date) (unknown) [facility] (no value) (units unknown) (unknown) Result panel 971 (unknown) (no date) (unknown) [facility] (no value) (units unknown) (unknown) Result panel 972 (unknown) (no date) (unknown) [facility] (no value) (units unknown) (unknown) Result panel 973 (unknown) (no date) (unknown) [facility] (no value) (units unknown) (unknown) Result panel 974 (unknown) (no date) (unknown) [facility] (no value) (units unknown) (unknown) Result panel 975 (unknown) (no date) (unknown) [facility] (no value) (units unknown) (unknown) Result panel 976 (unknown) (no date) (unknown) [facility] (no value) (units unknown) (unknown) Result panel 977 (unknown) (no date) (unknown) [facility] (no value) (units unknown) (unknown) Result panel 978 (unknown) (no date) (unknown) [facility] (no value) (units unknown) (unknown) Result panel 979 (unknown) (no date) (unknown) [facility] (no value) (units unknown) (unknown) Result panel 980 (unknown) (no date) (unknown) [facility] (no value) (units unknown) (unknown) Result panel 981 (unknown) (no date) (unknown) [facility] (no value) (units unknown) (unknown) Result panel 982 (unknown) (no date) (unknown) [facility] (no value) (units unknown) (unknown) Result panel 983 (unknown) (no date) (unknown) [facility] (no value) (units unknown) (unknown) Result panel 984 (unknown) (no date) (unknown) [facility] (no value) (units unknown) (unknown) Result panel 985 (unknown) (no date) (unknown) [facility] (no value) (units unknown) (unknown) Result panel 986 (unknown) (no date) (unknown) [facility] (no value) (units unknown) (unknown) Result panel 987 (unknown) (no date) (unknown) [facility] (no value) (units unknown) (unknown) Result panel 988 (unknown) (no date) (unknown) [facility] (no value) (units unknown) (unknown) Result panel 989 (unknown) (no date) (unknown) [facility] (no value) (units unknown) (unknown) Result panel 990 (unknown) (no date) (unknown) [facility] (no value) (units unknown) (unknown) Result panel 991 (unknown) (no date) (unknown) [facility] (no value) (units unknown) (unknown) Result panel 992 (unknown) (no date) (unknown) [facility] (no value) (units unknown) (unknown) Result panel 993 (unknown) (no date) (unknown) [facility] (no value) (units unknown) (unknown) Result panel 994 (unknown) (no date) (unknown) [facility] (no value) (units unknown) (unknown) Result panel 995 (unknown) (no date) (unknown) [facility] (no value) (units unknown) (unknown) Result panel 996 (unknown) (no date) (unknown) [facility] (no value) (units unknown) (unknown) Result panel 997 (unknown) (no date) (unknown) [facility] (no value) (units unknown) (unknown) Result panel 998 (unknown) (no date) (unknown) [facility] (no value) (units unknown) (unknown) Result panel 999 (unknown) (no date) (unknown) [facility] (no value) (units unknown) (unknown) Result panel 1000 (unknown) (no date) (unknown) [facility] (no value) (units unknown) (unknown) Result panel 1001 (unknown) (no date) (unknown) [facility] (no value) (units unknown) (unknown) Result panel 1002 (unknown) (no date) (unknown) [facility] (no value) (units unknown) (unknown) Result panel 1003 (unknown) (no date) (unknown) [facility] (no value) (units unknown) (unknown) Result panel 1004 (unknown) (no date) (unknown) [facility] (no value) (units unknown) (unknown) Result panel 1005 (unknown) (no date) (unknown) [facility] (no value) (units unknown) (unknown) Result panel 1006 (unknown) (no date) (unknown) [facility] (no value) (units unknown) (unknown) Result panel 1007 (unknown) (no date) (unknown) [facility] (no value) (units unknown) (unknown) Result panel 1008 (unknown) (no date) (unknown) [facility] (no value) (units unknown) (unknown) Result panel 1009 (unknown) (no date) (unknown) [facility] (no value) (units unknown) (unknown) Result panel 1010 (unknown) (no date) (unknown) [facility] (no value) (units unknown) (unknown) Result panel 1011 (unknown) (no date) (unknown) [facility] (no value) (units unknown) (unknown) Result panel 1012 (unknown) (no date) (unknown) [facility] (no value) (units unknown) (unknown) Result panel 1013 (unknown) (no date) (unknown) [facility] (no value) (units unknown) (unknown) Result panel 1014 (unknown) (no date) (unknown) [facility] (no value) (units unknown) (unknown) Result panel 1015 (unknown) (no date) (unknown) [facility] (no value) (units unknown) (unknown) Result panel 1016 (unknown) (no date) (unknown) [facility] (no value) (units unknown) (unknown) Result panel 1017 (unknown) (no date) (unknown) [facility] (no value) (units unknown) (unknown) Result panel 1018 (unknown) (no date) (unknown) [facility] (no value) (units unknown) (unknown) Result panel 1019 (unknown) (no date) (unknown) [facility] (no value) (units unknown) (unknown) Result panel 1020 (unknown) (no date) (unknown) [facility] (no value) (units unknown) (unknown) Result panel 1021 (unknown) (no date) (unknown) [facility] (no value) (units unknown) (unknown) Result panel 1022 (unknown) (no date) (unknown) [facility] (no value) (units unknown) (unknown) Result panel 1023 (unknown) (no date) (unknown) [facility] (no value) (units unknown) (unknown) Result panel 1024 (unknown) (no date) (unknown) [facility] (no value) (units unknown) (unknown) Result panel 1025 (unknown) (no date) (unknown) [facility] (no value) (units unknown) (unknown) Result panel 1026 (unknown) (no date) (unknown) [facility] (no value) (units unknown) (unknown) Result panel 1027 (unknown) (no date) (unknown) [facility] (no value) (units unknown) (unknown) Result panel 1028 (unknown) (no date) (unknown) [facility] (no value) (units unknown) (unknown) Result panel 1029 (unknown) (no date) (unknown) [facility] (no value) (units unknown) (unknown) Result panel 1030 (unknown) (no date) (unknown) [facility] (no value) (units unknown) (unknown) Result panel 1031 (unknown) (no date) (unknown) [facility] (no value) (units unknown) (unknown) Result panel 1032 (unknown) (no date) (unknown) [facility] (no value) (units unknown) (unknown) Result panel 1033 (unknown) (no date) (unknown) [facility] (no value) (units unknown) (unknown) Result panel 1034 (unknown) (no date) (unknown) [facility] (no value) (units unknown) (unknown) Result panel 1035 (unknown) (no date) (unknown) [facility] (no value) (units unknown) (unknown) Result panel 1036 (unknown) (no date) (unknown) [facility] (no value) (units unknown) (unknown) Result panel 1037 (unknown) (no date) (unknown) [facility] (no value) (units unknown) (unknown) Result panel 1038 (unknown) (no date) (unknown) [facility] (no value) (units unknown) (unknown) Result panel 1039 (unknown) (no date) (unknown) [facility] (no value) (units unknown) (unknown) Result panel 1040 (unknown) (no date) (unknown) [facility] (no value) (units unknown) (unknown) Result panel 1041 (unknown) (no date) (unknown) [facility] (no value) (units unknown) (unknown) Result panel 1042 (unknown) (no date) (unknown) [facility] (no value) (units unknown) (unknown) Result panel 1043 (unknown) (no date) (unknown) [facility] (no value) (units unknown) (unknown) Result panel 1044 (unknown) (no date) (unknown) [facility] (no value) (units unknown) (unknown) Result panel 1045 (unknown) (no date) (unknown) [facility] (no value) (units unknown) (unknown) Result panel 1046 (unknown) (no date) (unknown) [facility] (no value) (units unknown) (unknown) Result panel 1047 (unknown) (no date) (unknown) [facility] (no value) (units unknown) (unknown) Result panel 1048 (unknown) (no date) (unknown) [facility] (no value) (units unknown) (unknown) Result panel 1049 (unknown) (no date) (unknown) [facility] (no value) (units unknown) (unknown) Result panel 1050 (unknown) (no date) (unknown) [facility] (no value) (units unknown) (unknown) Result panel 1051 (unknown) (no date) (unknown) [facility] (no value) (units unknown) (unknown) Result panel 1052 (unknown) (no date) (unknown) [facility] (no value) (units unknown) (unknown) Result panel 1053 (unknown) (no date) (unknown) [facility] (no value) (units unknown) (unknown) Result panel 1054 (unknown) (no date) (unknown) [facility] (no value) (units unknown) (unknown) Result panel 1055 (unknown) (no date) (unknown) [facility] (no value) (units unknown) (unknown) Result panel 1056 (unknown) (no date) (unknown) [facility] (no value) (units unknown) (unknown) Result panel 1057 (unknown) (no date) (unknown) [facility] (no value) (units unknown) (unknown) Result panel 1058 (unknown) (no date) (unknown) [facility] (no value) (units unknown) (unknown) Result panel 1059 (unknown) (no date) (unknown) [facility] (no value) (units unknown) (unknown) Result panel 1060 (unknown) (no date) (unknown) [facility] (no value) (units unknown) (unknown) Result panel 1061 (unknown) (no date) (unknown) [facility] (no value) (units unknown) (unknown) Result panel 1062 (unknown) (no date) (unknown) [facility] (no value) (units unknown) (unknown) Result panel 1063 (unknown) (no date) (unknown) [facility] (no value) (units unknown) (unknown) Result panel 1064 (unknown) (no date) (unknown) [facility] (no value) (units unknown) (unknown) Result panel 1065 (unknown) (no date) (unknown) [facility] (no value) (units unknown) (unknown) Result panel 1066 (unknown) (no date) (unknown) [facility] (no value) (units unknown) (unknown) Result panel 1067 (unknown) (no date) (unknown) [facility] (no value) (units unknown) (unknown) Result panel 1068 (unknown) (no date) (unknown) [facility] (no value) (units unknown) (unknown) Result panel 1069 (unknown) (no date) (unknown) [facility] (no value) (units unknown) (unknown) Result panel 1070 (unknown) (no date) (unknown) [facility] (no value) (units unknown) (unknown) Result panel 1071 (unknown) (no date) (unknown) [facility] (no value) (units unknown) (unknown) Result panel 1072 (unknown) (no date) (unknown) [facility] (no value) (units unknown) (unknown) Result panel 1073 (unknown) (no date) (unknown) [facility] (no value) (units unknown) (unknown) Result panel 1074 (unknown) (no date) (unknown) [facility] (no value) (units unknown) (unknown) Result panel 1075 (unknown) (no date) (unknown) [facility] (no value) (units unknown) (unknown) Result panel 1076 (unknown) (no date) (unknown) [facility] (no value) (units unknown) (unknown) Result panel 1077 (unknown) (no date) (unknown) [facility] (no value) (units unknown) (unknown) Result panel 1078 (unknown) (no date) (unknown) [facility] (no value) (units unknown) (unknown) Result panel 1079 (unknown) (no date) (unknown) [facility] (no value) (units unknown) (unknown) Result panel 1080 (unknown) (no date) (unknown) [facility] (no value) (units unknown) (unknown) Result panel 1081 (unknown) (no date) (unknown) [facility] (no value) (units unknown) (unknown) Result panel 1082 (unknown) (no date) (unknown) [facility] (no value) (units unknown) (unknown) Result panel 1083 (unknown) (no date) (unknown) [facility] (no value) (units unknown) (unknown) Result panel 1084 (unknown) (no date) (unknown) [facility] (no value) (units unknown) (unknown) Result panel 1085 (unknown) (no date) (unknown) [facility] (no value) (units unknown) (unknown) Result panel 1086 (unknown) (no date) (unknown) [facility] (no value) (units unknown) (unknown) Result panel 1087 (unknown) (no date) (unknown) [facility] (no value) (units unknown) (unknown) Result panel 1088 (unknown) (no date) (unknown) [facility] (no value) (units unknown) (unknown) Result panel 1089 (unknown) (no date) (unknown) [facility] (no value) (units unknown) (unknown) Result panel 1090 (unknown) (no date) (unknown) [facility] (no value) (units unknown) (unknown) Result panel 1091 (unknown) (no date) (unknown) [facility] (no value) (units unknown) (unknown) Result panel 1092 (unknown) (no date) (unknown) [facility] (no value) (units unknown) (unknown) Result panel 1093 (unknown) (no date) (unknown) [facility] (no value) (units unknown) (unknown) Result panel 1094 (unknown) (no date) (unknown) [facility] (no value) (units unknown) (unknown) Result panel 1095 (unknown) (no date) (unknown) [facility] (no value) (units unknown) (unknown) Result panel 1096 (unknown) (no date) (unknown) [facility] (no value) (units unknown) (unknown) Result panel 1097 (unknown) (no date) (unknown) [facility] (no value) (units unknown) (unknown) Result panel 1098 (unknown) (no date) (unknown) [facility] (no value) (units unknown) (unknown) Result panel 1099 (unknown) (no date) (unknown) [facility] (no value) (units unknown) (unknown) Result panel 1100 (unknown) (no date) (unknown) [facility] (no value) (units unknown) (unknown) Result panel 1101 (unknown) (no date) (unknown) [facility] (no value) (units unknown) (unknown) Result panel 1102 (unknown) (no date) (unknown) [facility] (no value) (units unknown) (unknown) Result panel 1103 (unknown) (no date) (unknown) [facility] (no value) (units unknown) (unknown) Result panel 1104 (unknown) (no date) (unknown) [facility] (no value) (units unknown) (unknown) Result panel 1105 (unknown) (no date) (unknown) [facility] (no value) (units unknown) (unknown) Result panel 1106 (unknown) (no date) (unknown) [facility] (no value) (units unknown) (unknown) Result panel 1107 (unknown) (no date) (unknown) [facility] (no value) (units unknown) (unknown) Result panel 1108 (unknown) (no date) (unknown) [facility] (no value) (units unknown) (unknown) Result panel 1109 (unknown) (no date) (unknown) [facility] (no value) (units unknown) (unknown) Result panel 1110 (unknown) (no date) (unknown) [facility] (no value) (units unknown) (unknown) Result panel 1111 (unknown) (no date) (unknown) [facility] (no value) (units unknown) (unknown) Result panel 1112 (unknown) (no date) (unknown) [facility] (no value) (units unknown) (unknown) Result panel 1113 (unknown) (no date) (unknown) [facility] (no value) (units unknown) (unknown) Result panel 1114 (unknown) (no date) (unknown) [facility] (no value) (units unknown) (unknown) Result panel 1115 (unknown) (no date) (unknown) [facility] (no value) (units unknown) (unknown) Result panel 1116 (unknown) (no date) (unknown) [facility] (no value) (units unknown) (unknown) Result panel 1117 (unknown) (no date) (unknown) [facility] (no value) (units unknown) (unknown) Result panel 1118 (unknown) (no date) (unknown) [facility] (no value) (units unknown) (unknown) Result panel 1119 (unknown) (no date) (unknown) [facility] (no value) (units unknown) (unknown) Result panel 1120 (unknown) (no date) (unknown) [facility] (no value) (units unknown) (unknown) Result panel 1121 (unknown) (no date) (unknown) [facility] (no value) (units unknown) (unknown) Result panel 1122 (unknown) (no date) (unknown) [facility] (no value) (units unknown) (unknown) Result panel 1123 (unknown) (no date) (unknown) [facility] (no value) (units unknown) (unknown) Result panel 1124 (unknown) (no date) (unknown) [facility] (no value) (units unknown) (unknown) Result panel 1125 (unknown) (no date) (unknown) [facility] (no value) (units unknown) (unknown) Result panel 1126 (unknown) (no date) (unknown) [facility] (no value) (units unknown) (unknown) Result panel 1127 (unknown) (no date) (unknown) [facility] (no value) (units unknown) (unknown) Result panel 1128 (unknown) (no date) (unknown) [facility] (no value) (units unknown) (unknown) Result panel 1129 (unknown) (no date) (unknown) [facility] (no value) (units unknown) (unknown) Result panel 1130 (unknown) (no date) (unknown) [facility] (no value) (units unknown) (unknown) Result panel 1131 (unknown) (no date) (unknown) [facility] (no value) (units unknown) (unknown) Result panel 1132 (unknown) (no date) (unknown) [facility] (no value) (units unknown) (unknown) Result panel 1133 (unknown) (no date) (unknown) [facility] (no value) (units unknown) (unknown) Result panel 1134 (unknown) (no date) (unknown) [facility] (no value) (units unknown) (unknown) Result panel 1135 (unknown) (no date) (unknown) [facility] [place] (no value) (units unknown) (unknown) Social History date description facility 2023-01-15 00:00 Former smoker [facility] [place] 2023-01-15 00:00 Former smoker [facility] [place] Vital Signs date measurement value units 2023-01-15 [...]
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
[2023-04-03] MEDS ORDERED: ACETAMINOPHEN 500 MG TABLET PO STA (18:41)
--- NOTE | 2023-04-03 19:01 | XRAY Report ---
PROCEDURE: Wrist 3 View RT INDICATIONS: fall/pain TECHNIQUE: 3 views of the wrist were acquired. COMPARISON: None. FINDINGS: Bones: No fractures identified. No dislocations. No suspicious bony lesions. Soft tissues: No suspicious soft tissue calcifications or masses. IMPRESSION: No acute osseous abnormality. Consider follow-up radiographs in 10-14 days. Reviewed by: Jaison Munoz MD on 04/03/2023 6:59 PM PDT Approved by: Jaison Munoz MD on 04/03/2023 6:59 PM PDT Station ID: [id number]
--- NOTE | 2023-04-03 21:30 | CT Report ---
PROCEDURE: HEAD WO INDICATIONS: Reeval traumatic intracranial hemorrhage TECHNIQUE: Noncontrast 4.5 mm thick angled axial sections acquired from the foramen magnum to the vertex. For r adiation dose reduction, the following was used: automated exposure control, adjustment of mA and/or kV according to patient size. COMPARISON: Prior head CT from 04/03/2023. CT head 01/15/2023. FINDINGS: Image quality: Excellent. CSF spaces: There is moderate cerebral volume loss with prominence of the ventricles and sulci. Basa l cisterns are patent. No extra-axial fluid collections. Brain: There are 2 small areas of indistinct hyperdensity along the right frontal and temporal lobe s ulci redemonstrated suggestive of subarachnoid hemorrhage. These appear unchanged in size compared to the prior study. Medially within the occipital lobes there areas of cortical thinning and curvilinea r high density which appear unchanged compared to prior studies and are suggestive of laminar necrosi s. No intracranial mass or mass effect. Ward-white matter interface is preserved. There are subcortic al and periventricular white matter hypodensities consistent with moderate chronic small vessel ische jeramie changes. Skull and face: Calvarium and visualized facial bones are intact, without suspicious lesions. Sinuses: Visualized sinuses and mastoids are clear. IMPRESSION: 1. Small suspected areas of subarachnoid hemorrhage along the right frontal and temporal lobes appear unchanged in size and morphology. 2. Curvilinear region of cortical high density and mild volume loss in the medial right occipital lob e appear unchanged from the prior studies and are suggestive of laminar necrosis. Reviewed by: Zander Pérez MD on 04/03/2023 9:29 PM PDT Approved by: Zander Pérez MD on 04/03/2023 9:29 PM PDT Station ID: [id number]
[2023-04-03] MEDS ORDERED: FUROSEMIDE 40 MG/4 ML VIAL IVP STA (22:10)
[2023-04-03] MEDS ORDERED: lisinopriL 5 MG TABLET PO STA (22:10)
[2023-04-03] MEDS ORDERED: HYDROcod/ACETAM 5/325 MG TABLET PO PRN (22:30)
--- NOTE | 2023-04-03 22:47 | XRAY Report ---
PROCEDURE: Chest 1 View X-Ray INDICATIONS: dyspnea TECHNIQUE: One view of the chest was acquired. COMPARISON: None. FINDINGS: Surgical changes and devices: None. Lungs and pleura: There is increased bilateral pulmonary vascular prominence likely representing pul monary edema. No pleural effusions or pneumothorax. Mediastinum: Mediastinal contours appear normal. Heart size is normal. Bones and chest wall: No suspicious bony lesions. Overlying soft tissues appear unremarkable. IMPRESSION: 1. Increased pulmonary vascular prominence likely represents pulmonary edema versus pneumonia. Reviewed by: Zander Pérez MD on 04/03/2023 10:46 PM PDT Approved by: Zander Pérez MD on 04/03/2023 10:46 PM PDT Station ID: [id number]
[2023-04-03] MEDS ORDERED: ACETAMINOPHEN 325 MG TABLET PO PRN (22:52)
[2023-04-03] MEDS ORDERED: ONDANSETRON 4 MG/2 ML VIAL IVP PRN (22:52)
[2023-04-03] MEDS ORDERED: ALBUTEROL NEB 2.5 MG/3 ML INH PRN (22:52)
[2023-04-03] MEDS ORDERED: SODIUM CHLORIDE FLUSH 0.9% 10 ML SYRINGE IVP PRN (22:52)
[2023-04-03] MEDS ORDERED: hydrALAZINE INJ 20 MG/ML VIAL IVP PRN (22:57)
--- NOTE | 2023-04-03 23:01 | XRAY Report ---
PROCEDURE: Wrist 4 View LT INDICATIONS: wrist inj TECHNIQUE: 3 views of the wrist were acquired. COMPARISON: None. FINDINGS: Bones: No acute fractures or dislocations. There is deformity of the distal radius consistent with sequelae of a prior fracture. There is also deformity of the scaphoid suggestive of a prior fracture. There is moderate degeneration of the distal radioulnar joint. No suspicious bony lesions. Soft tissues: No suspicious soft tissue calcifications or masses. IMPRESSION: 1. No definite acute fracture or dislocation. 2. Deformity of the scaphoid and distal radius compatible with sequelae of prior fractures. Reviewed by: Zander Pérez MD on 04/03/2023 10:59 PM PDT Approved by: Zander Pérez MD on 04/03/2023 10:59 PM PDT Station ID: [id number]
--- NOTE | 2023-04-03 23:06 | HISTORY & PHYSICAL EXAMINATION ---
Chief Complaint - Chief Complaint Chief Complaint: fall History of Present Illness - Admitted From Admitted From:: ED - History Obtained From Records Reviewed: EMR History obtained from: Patient, , RN, ED staff Exam Limitations: Tele Medicine - History of Present Illness HPI Comment/Other: 82M c gait instability and uses 2 canes to ambulate, atrial fibrillation on Eliquis, and CHF on Lasix who presents to the ED with fall at home. Patient subsequently did injury his head and was brought into the ED for evaluation a fter being on the ground for 10-15mins. While here in the ED, developed O2 needs and was deemed in acute CHF exacerbation. Patient has dementia. He was not able to fully provide all information. was at bedside at provided the necessary details. Patient has hx of hip and knee surgery leading to gait imbalance and use of 2 canes for ambulation. Patient was outside and tripped on the sidewalk curb and fell to the ground. Patient had injury his head but no report of LOC. No chest pain, SOB, or palpitation reported aurora event. Patient was brought into the ED where he was discovered to have stable SAH. ED did reachout to trauma surgery Dr. Jim and received recommendation for no intervention and ok for discharge per ED staff. Currently patient denies headhead and no vision changes. no double vision. no n/v. While in the ED, patient developed SOB and required O2. He was noted for BLE swelling. reported increase BLE swelling. He had been on HCTZ and was changed to another antihypertensive recently. No fever. No URI sxs. No report of orthopnea. Patient does take his Lasix. History - Past Medical History Cardiovascular: reports: Hypertension, High cholesterol, [place], Atrial fibrillation Neuro: reports: Dementia Endocrine/Autoimmune: reports: Type 2 diabetes : reports: Benign prostate hypertrophy Musculoskeletal: reports: Osteoarthritis MRSA Hx?: No - Past Surgical History Ortho: reports: Hip replacement, Knee replacement - POLST Patient has POLST: No Meds/Allgy - Home Medications Home Medications: Ambulatory Orders Medication Instructions Recorded Confirmed cephALEXin [Keflex] 500 mg PO Q6H #28 cap 08/15/21 Apixaban [Eliquis] 5 mg PO BID 06/05/22 06/05/22 Atorvastatin Calcium 40 mg PO DAILY 06/05/22 06/05/22 Finasteride [Proscar] 5 mg PO DAILY 06/05/22 06/05/22 Isosorbide Mononitrate [Isosorbide 60 mg PO DAILY 06/05/22 06/05/22 Mononitrate ER] Losartan Potassium [Cozaar] 100 mg PO DAILY 06/05/22 06/05/22 Metoprolol Succinate [Toprol Xl] 200 mg PO DAILY 06/05/22 06/05/22 Tamsulosin [Flomax] 0.4 mg PO DAILY 06/05/22 06/05/22 glipiZIDE [Glipizide ER] 2.5 mg PO DAILY 06/05/22 06/05/22 hydroCHLOROthiazide [Hydrodiuril] 25 mg PO DAILY 06/05/22 06/05/22 Empagliflozin [Jardiance] 25 mg PO DAILY 01/15/23 01/15/23 HYDROcod/ACETAM 5/325 [Bartlett 5/325] 1 tab PO Q6H PRN #14 tablet 01/25/23 - Allergies Allergies/Adverse Reactions: Allergies Allergy/AdvReac Type Severity Reaction Status Date / Time No Known Drug Allergies Allergy Verified 01/24/23 23:32 Review of Systems - Other Findings Other Findings: negative unless mentioned differently above. Exam - Vital Signs Reviewed Vital Signs: Yes Vital Signs: Vital Signs x48h Temp Pulse Resp BP Pulse Ox O2 Flow Rate 04/03/23 22:40 71 16 159/76 H 92 4 04/03/23 21:00 70 16 143/62 H 93 3 04/03/23 19:45 71 16 149/56 H 93 2 04/03/23 16:54 37.2 C 49 L 16 149/101 H 100 - Physical Exam General Appearance: positive: No acute distress, Alert Eyes Bilateral: positive: Normal inspection ENT: positive: ENT inspection nml Neck: positive: Nml inspection Respiratory: positive: No respiratory distress, Breath sounds nml (per RN) Cardiovascular: positive: Regular rate & rhythm (per RN) Abdomen: positive: Non-tender, No distention (per RN). negative: Tenderness Skin: positive: Color nml Neurologic/Psychiatric: positive: CN's nml (2-12) Conclusion/Plan - Problem List (1) CHF exacerbation Conclusion/Plan: mild CHF exacerbation. negative trop hence no acs involved. rate controlled hence no afib involved. possible change of HCTZ led to mild CHF exacerbation. continue IV Lasix. fluid restrict. daily weighing. I & O. monitor electrolytes with BMP. tele monitoring (2) SAH (subarachnoid hemorrhage) Conclusion/Plan: SAH noted on CT. no change on repeat head CT. currently no headache. no vision change. no n/v. ED spoke with trauma with recommendation of ok for discharge and hold Eliquis will neuro monitor. if any neuro changes, low threshold for stat CT head. Hold anticoagulation and antiplts controlled SBP <160 HOB>30 fall precaution aspiration precaution PT eval Case management consult (3) DM2 (diabetes mellitus, type 2) Conclusion/Plan: will managed with SSI and accucheck (4) HTN (hypertension) Conclusion/Plan: controlled. continue home antihypertensives. prn hydralazine to keep sbp<160 (5) CKD (chronic kidney disease) stage 3, GFR 30-59 ml/min Conclusion/Plan: renal function baseline for patient. avoid nephrotoxins.monitor renal function with repeat BMP. (6) BPH (benign prostatic hyperplasia) Conclusion/Plan: stable. no acute urinary retention reported. continue home tamsulosin and finasteride. (7) HLD (hyperlipidemia) Conclusion/Plan: managed. continue statin therapy. (8) Atrial fibrillation Conclusion/Plan: rate controlled. continue metoprolol. tele monitoring. hold anticoagulation 2/2 SAH. - Lab Results Lab results reviewed: Yes Fish Bones: 04/03/23 16:53 04/03/23 16:53 - Diagnostic Imaging Results Diagnostic Imaging Results: positive: Final report reviewed Core Measures - Anticipated LOS I expect patient to be DC'd or transferred within 96 hours.: Yes - Issues Hospital Issues and Management Plan: The patient consented to receive this telemedicine service, which I performed via live two-way audiovisual equipment. The patient is at ([facility]) and I am physically in [facility]. A nurse assisted me in the visit. - DVT/VTE - Prophylaxis VTE/DVT Device ordered at admit?: Yes Telemedicine Consult Details - Provider Location & Consult Time Telemedicine consultation conducted via videoconferencing?: Yes List names and roles of persons who participated in consult:: patient, , rn, ed staff Telemedicine provider location:: [facility] Time Telemedicine consult began:: 22:25 Time Telemedicine consult completed:: 23:25
[2023-04-04] MEDS: SODIUM CHLORIDE FLUSH 0.9% 10 ML SYRINGE IVP SCH ×3 (00:27→17:17)
[2023-04-04] MEDS: HYDROcod/ACETAM 5/325 MG TABLET PO PRN (01:45)
[2023-04-04 05:31] LABS: BASOPHILS % (AUTO) 0.3 %; EOSINOPHILS % (AUTO) 0.2 %; HCT - HEMATOCRIT 30.7 % (42.0-52.0); HGB - HEMOGLOBIN 9.8 g/dL (14.0-18.0); LYMPHOCYTES # (AUTO) 0.8 10^3/uL (1.5-3.5); LYMPHOCYTES % (AUTO) 11.9 %; MEAN CORPUSCULAR HGB CONC 31.9 g/dL (32.0-36.0); MEAN CORPUSCULAR VOLUME 75.2 fL (80.0-94.0); MEAN PLATELET VOLUME 11.3 fL (7.4-11.4); MONOCYTES # (AUTO) 0.7 10^3/uL (0.0-1.0); NEUTROPHILS # (AUTO) 4.9 10^3/uL (1.5-6.6); NEUTROPHILS % (AUTO) 76.2 %; PLT - PLATELET COUNT 203 10^3/uL (130-450); RED BLOOD COUNT 4.08 10^6/uL (4.70-6.10); RED CELL DISTRIBUTION WIDTH 16.9 % (12.0-15.0); WHITE BLOOD COUNT 6.5 x10^3/uL (4.8-10.8)
[2023-04-04 05:42] LABS: CALCIUM, IONIZED 1.17 mmol/L (1.15-1.33); VBG PH 7.428 (7.31-7.41)
[2023-04-04 05:47] LABS: CALCIUM 9.5 mg/dL (8.5-10.3); CREATININE 1.4 mg/dL (0.6-1.2); MAGNESIUM 2.1 mg/dL (1.7-2.8); PHOSPHORUS 4.7 mg/dL (2.5-4.6); POTASSIUM 3.1 mmol/L (3.5-5.0)
[2023-04-04] MEDS: INSULIN LISPRO 300 UNIT/3 ML PEN SUBQ SCH ×4 (08:05→20:21)
[2023-04-04] MEDS: POTASSIUM CHLORIDE 20 MEQ TABLET PO SCH ×2 (08:20→10:10)
[2023-04-04] MEDS ORDERED: METOPROLOL SUCCINATE 50 MG TABLET PO SCH (09:00)
[2023-04-04] MEDS ORDERED: EMPAGLIFLOZIN 25 MG PO SCH (09:00)
[2023-04-04] MEDS: TAMSULOSIN 0.4 MG CAPSULE PO SCH (09:05)
[2023-04-04] MEDS: ISOSORBIDE MONONITRATE ER 30 MG TABLET PO SCH (09:05)
[2023-04-04] MEDS: LOSARTAN 50 MG TABLET PO SCH (09:05)
[2023-04-04] MEDS: ATORVASTATIN 40 MG TABLET PO SCH (09:05)
[2023-04-04] MEDS: FINASTERIDE 5 MG TABLET PO SCH (09:06)
[2023-04-04] MEDS: hydroCHLOROthiazide 25 MG TABLET PO SCH (10:10)
--- NOTE | 2023-04-04 10:57 | PHARMACY PROGRESS NOTE ---
- Best Possible Medication History Admit Date and Time: 04/03/23 6536 Processed by: Pharmacy Medication History completed: Yes Patient Interview: Pt unable to participate Secondary Source(s): Pharmacy records, Insurance records As the person ultimately responsible for medication therapy, providers are able to order a medication from an existing home medication list in [facility] via the "Reconcile Routine" prior to Confirmation of that medication by sales and support center agent. Such practice is discouraged except when the physician, in their clinical judgment, deems that a medical need exists for a medication without regard to previous use.
[2023-04-04] MEDS: MULTIVITAMIN W/MINERALS TABLET PO SCH (11:30)
[2023-04-04] MEDS: FUROSEMIDE 40 MG/4 ML VIAL IVP SCH (11:32)
[2023-04-04] MEDS ORDERED: POTASSIUM CHLORIDE 20 MEQ TABLET PO ONE (14:24)
--- NOTE | 2023-04-04 19:03 | PROVIDER PROGRESS NOTE ---
Progress Note March 05, 2023 6:45 PM Patient was seen earlier in the day and this afternoon. He is a gentleman who has dementia, lives with his , and has a tendency to fall and uses 2 canes. He tripped and fell, came to the emergency room and he has a stable subdural arachnoid hemorrhage. He was seen over 2 CTs over 4 hours. He does not need to be transferred. He started at 4 L nasal cannula this morning and is down to 1 L. He is 97%. He is alert to self, able to cooperate with nurses. He had some edema this morning that is improved by this afternoon. Eating well. Nutrition services noted that he is on Jardiance and glipizide. A1c is 6.7% and might benefit from reducing some of his medications. This afternoon he keeps on asking repetitively for water. Aches all over. Vitals: Temperature 36.7. Heart rate 67. Blood pressure 143/56. Respirations 19. 98% saturated on 1 L. When nursing tries to go off the oxygen completely his O2 sats drop below 90%. He is alert, but repetitive. Forgetful. Laceration above the left eyebrow, laceration along zygomatic arch of the left face. Sclera red with blood. Pupil reactive. Good dentition. No dehydration. Neck is supple next lungs are clear PMI is normally placed with a regular rate and rhythm abdomen is soft, nontender Legs have FREDRICK hose. No edema. He is alert, understands he is in the hospital but very forgetful. Loses track of time. Forgets that he is on fluid restriction and most of asked the nurse for water 10 times while I was there. But no focal deficits. Labs: BMP with potassium 3.1. With the ICU protocol he is going to 3.9, and 4.1. BUN 45 creatinine 1.4. Creatinine was 1.6 yesterday. In the past has been as low as 1.2 in September 2021. She has element of acute kidney injury most likely due to dehydration Glucose today has been 135, 172, 186. White cell count 6.5, hemoglobin 9.8. Baseline hemoglobin appears to be between 7.8 and as high as 11.11. In 2022 he has been 8-9. Platelet 203, MCV 75 Assessment/plan 1. Acute congestive heart failure. Mild. Over the course of the day, from this morning to this afternoon, he is improved. Needing less oxygen, and he has less leg edema. On review of the medical record there is no old echo to compare to. Echo was ordered by telehealth but our oil burner technician is not available until April 08. In the meantime he is on Cozaar 100 mg daily. I have switched his Lopressor from 200 mg as a one-time dose to 100 mg twice daily. Lasix is 40 mg IV push daily. With that urine output was 3900 cc today. I can see why his edema and oxygenation improved. Plan: Reduce Lasix to 20 mg IV push Continue Cozaar 100 and Lopressor 100 twice daily Reassess in the morning after discussion with to see where placement will be 2. Chronic atrial fibrillation. On examination and on telemetry he is in sinus rhythm. Rate is controlled. No change in management at this time. Although with a subarachnoid hemorrhage, I might want to recommend a Watchman procedure. Especially since the CAT scan shows a probable old hemorrhage in the past and this new 1 is subacute. 3. Type 2 diabetes mellitus, controlled, without complication, not on long-term insulin. In an 82-year-old, and A1c of 6.7% is tightly controlled. He may benefit from coming off glipizide and just staying on Jardiance. His primary ca re provider would need to make that decision. 4. Hypertension. At home he takes metoprolol, Norvasc, Cozaar. Here I just have him on Lasix, as needed hydralazine, Imdur 60, Cozaar 100, metoprolol 100 twice daily. I will hold off on resuming the Norvasc at this time. 5. History of falls at home. His is already left for the day. I will see her tomorrow morning and discuss what the home situation is.
[2023-04-04] MEDS: METOPROLOL TARTRATE 50 MG TABLET PO SCH (20:20)
[2023-04-05] MEDS: HYDROcod/ACETAM 5/325 MG TABLET PO PRN ×2 (00:55→05:17)
[2023-04-05] MEDS: SODIUM CHLORIDE FLUSH 0.9% 10 ML SYRINGE IVP SCH ×4 (05:17→20:18)
[2023-04-05] MEDS: EMPAGLIFLOZIN 25 MG PO SCH (08:05)
[2023-04-05] MEDS: MULTIVITAMIN W/MINERALS TABLET PO SCH (08:05)
[2023-04-05] MEDS: ISOSORBIDE MONONITRATE ER 30 MG TABLET PO SCH (08:06)
[2023-04-05] MEDS: ATORVASTATIN 40 MG TABLET PO SCH (08:06)
[2023-04-05] MEDS: INSULIN LISPRO 300 UNIT/3 ML PEN SUBQ SCH ×4 (08:22→20:18)
[2023-04-05 08:50] LABS: BASOPHILS % (AUTO) 0.3 %; EOSINOPHILS % (AUTO) 0.3 %; HCT - HEMATOCRIT 30.2 % (42.0-52.0); HGB - HEMOGLOBIN 9.3 g/dL (14.0-18.0); LYMPHOCYTES # (AUTO) 1.3 10^3/uL (1.5-3.5); LYMPHOCYTES % (AUTO) 22.3 %; MEAN CORPUSCULAR HEMOGLOBIN 23.1 pg (27.0-31.0); MEAN CORPUSCULAR HGB CONC 30.8 g/dL (32.0-36.0); MEAN CORPUSCULAR VOLUME 74.9 fL (80.0-94.0); MONOCYTES % (AUTO) 17.1 %; NEUTROPHILS # (AUTO) 3.5 10^3/uL (1.5-6.6); NEUTROPHILS % (AUTO) 58.7 %; PLT - PLATELET COUNT 168 10^3/uL (130-450); RED BLOOD COUNT 4.03 10^6/uL (4.70-6.10)
[2023-04-05 08:56] LABS: CALCIUM 9.1 mg/dL (8.5-10.3); CREATININE 1.3 mg/dL (0.6-1.2); POTASSIUM 3.3 mmol/L (3.5-5.0)
[2023-04-05] MEDS: LOSARTAN 50 MG TABLET PO SCH (09:12)
[2023-04-05] MEDS: TAMSULOSIN 0.4 MG CAPSULE PO SCH (09:13)
[2023-04-05] MEDS: hydroCHLOROthiazide 25 MG TABLET PO SCH (09:13)
[2023-04-05] MEDS: FINASTERIDE 5 MG TABLET PO SCH (09:15)
[2023-04-05] MEDS: METOPROLOL TARTRATE 50 MG TABLET PO SCH ×2 (11:04→20:21)
[2023-04-05] MEDS: POTASSIUM CHLORIDE 20 MEQ TABLET PO SCH ×2 (14:24→16:07)
[2023-04-05] MEDS: FUROSEMIDE 40 MG/4 ML VIAL IVP SCH (16:08)
--- NOTE | 2023-04-05 19:03 | PROVIDER PROGRESS NOTE ---
Progress Note March 2023 6:58 PM Much less facial edema over his abrasions of the left side of his face. Very forgetful but yao gentleman. I had changed his metoprolol XL 200 mg daily to 100 mg twice daily. We are holding it when he is too bradycardic and he received a dose last night but he did not get a dose this morning. His other blood pressure medicines are hydralazine as needed, hydrochlorothiazide daily, Imdur 60 mg daily, losartan 100 mg daily, and even though is on a blood pressure medicine it will make you orthostatic, Flomax. This gentleman has a problem with falling. This the reason he is here. In spite of the bradycardia, his blood pressure has been relatively stable in the 130s to 140s. Only once was at 107/55 and that was at 11:00 last night. Active Medications Acetaminophen (Acetaminophen 325 Mg Tablet) 650 mg PO Q4HR PRN PRN Reason: Pain 1 to 4, or Fever Hydrocodone Bitart/Acetaminophen (Hydrocod/Acetam 5/325 Mg Tablet) 1 tab PO Q4HR PRN PRN Reason: Pain 5 to 7 Last Admin: 04/05/23 05:17 Dose: 1 tab Albuterol (Albuterol Neb 2.5 Mg/3 Ml) 2.5 mg INH Q4HR PRN PRN Reason: Wheezing Atorvastatin Calcium (Atorvastatin 40 Mg Tablet) 40 mg PO DAILY [facility] Last Admin: 04/05/23 08:06 Dose: 40 mg Calcium Carbonate/Glycine (Calcium Carbonate Chew 500 Mg Tablet) 500 mg PO BID [facility] Finasteride (Finasteride 5 Mg Tablet) 5 mg PO DAILY [facility] Last Admin: 04/05/23 09:15 Dose: 5 mg Hydralazine HCl (Hydralazine Inj 20 Mg/Ml Vial) 10 mg IVP Q4HR PRN PRN Reason: SBP> or= 160 OR DBP> or= 110 Hydrochlorothiazide (Hydrochlorothiazide 25 Mg Tablet) 25 mg PO DAILY [facility] Last Admin: 04/05/23 09:13 Dose: 25 mg Insulin Human Lispro (Insulin Lispro 300 Unit/3 Ml Pen) 1 - 9 unit SUBQ 0800 ,1200,1700,2100 [facility]; Protocol Isosorbide Mononitrate (Isosorbide Mononitrate Er 30 Mg Tablet) 60 mg PO DAILY [facility] Last Admin: 04/05/23 08:06 Dose: 60 mg Losartan Potassium (Losartan 50 Mg Tablet) 100 mg PO DAILY [facility] Last Admin: 04/05/23 09:12 Dose: 100 mg Metoprolol Tartrate (Metoprolol Tartrate 50 Mg Tablet) 100 mg PO BID [facility] Last Admin: 04/05/23 11:04 Dose: Not Given Multivitamins/Minerals (Multivitamin W/Minerals Tablet) 1 tab PO DAILYWM [facility] Last Admin: 04/05/23 08:05 Dose: 1 tab Ondansetron HCl (Ondansetron 4 Mg/2 Ml Vial) 4 mg IVP Q6HR PRN PRN Reason: Nausea / Vomiting Empagliflozin [ Jardiance] 25 Mg Tablet 1 each PO QDAC [facility] Last Admin: 04/05/23 08:05 Dose: 1 each Sodium Chloride (Sodium Chloride Flush 0.9% 10 Ml Syringe) 10 ml IVP 0100,0900,1700 [facility] Last Admin: 04/05/23 17:02 Dose: 10 ml Sodium Chloride (Sodium Chloride Flush 0.9% 10 Ml Syringe) 10 ml IVP PRN PRN PRN Reason: NEEDED PER PROVIDER ORDERS Tamsulosin HCl (Tamsulosin 0.4 Mg Capsule) 0.4 mg PO DAILY [facility] Last Admin: 04/05/23 09:13 Dose: 0.4 mg Apixaban [Eliquis] 5 mg PO BID 06/05/22 Finasteride [Proscar] 5 mg PO DAILY 06/05/22 Isosorbide Mononitrate [Isosorbide Mononitrate ER] 60 mg PO DAILY 06/05/22 Losartan Potassium [Cozaar] 100 mg PO DAILY 06/05/22 Metoprolol Succinate [Toprol Xl] 200 mg PO DAILY 06/05/22 Tamsulosin [Flomax] 0.4 mg PO BID 06/05/22 glipiZIDE [Glipizide ER] 20 mg PO DAILY 06/05/22 Empagliflozin [Jardiance] 25 mg PO DAILY 01/15/23 Amlodipine Besylate [Norvasc] 10 mg PO DAILY 04/04/23 Furosemide [Lasix] 40 mg PO DAILY 04/04/23 Rosuvastatin Calcium [Crestor] 40 mg PO QPM 04/04/23 Vitals: Temperature 37.1, heart rate 64, blood pressure 133/59. Respirations 24. He is 97% on room air. He has been on 2 L nasal cannula and nursing has been trying to get him off oxygen to see how he does. This is at rest. Neck is supple. Lungs are clear. Regular rate and rhythm with a systolic ejection murmur Abdomen is soft, nontender FREDRICK hose in place for his legs, no edema Continues to lose track of conversation, track of time. Repetitive. But easily prompted. Does not try and get out of bed. No focal deficits. Lab: Sodium 140, potassium 3.3. Creatinine started at 1.6 on admission and is 1.3 today. BUN started to 50 and it is 42 today. Glucose today is 146, 230, 266. White cell count is 6000. No elevation during the stay. Hemoglobin is 9.3 and stable. Platelets 168. Assessment/plan 1. Acute congestive heart failure. Was initially on 4 L when he was admitted. By yesterday he was down to 1 or 2 L. In this afternoon he is now on room air. I am not seeing any leg edema. On review of the medical record there is no old echo to compare to. Echo was ordered by telehealth but our document image technician is not available until April 08. I discontinued his Lasix 40 mg IV push and his last dose was yesterday. I was going to give him 20 mg IV push this morning but since he is with no edema, no JVD and improved 02 sat and already on his HydroDIURIL, I opted not to give him any Lasix this morning. In the meantime he is on Cozaar 100 mg daily. I have switched his Lopressor from 200 mg as a one-time dose to 100 mg twice daily. Plan: Home Lasix is 40 mg p.o. daily. When he is discharged I will discharge on 20 mg in the morning and 20 mg at 8 PM. Continue Cozaar 100 and Lopressor 100 twice daily. Blood pressure is stable with this but I wonder if he has orthostatic hypotension. With tomorrow's vital signs I will ask for a.m. orthostatic check I was unable to speak to his today. Many families needed family con ferences and by the time I got to the room, she was already gone for the day. I will try to talk to her tomorrow and see where her plans are for his disposition at discharge. 2. Chronic atrial fibrillation. On examination and on telemetry he is in sinus rhythm. Rate is controlled. No change in management at this time. Although with a subarachnoid hemorrhage, I might want to recommend a Watchman procedure. Especially since the CAT scan shows a probable old hemorrhage in the past and this new 1 is subacute. 3. Type 2 diabetes mellitus, controlled, without complication, not on long-term insulin. In an 82-year-old, and A1c of 6.7% is tightly controlled. He may benefit from coming off glipizide and just staying on Jardiance. His primary care provider would need to make that decision. He is eating 75 to 100% of his food. With that his glucoses come up.I will give Lantus tonight. Continue sliding scale. The Lantus will be 10 units. When he goes home I will resume Jardiance. 4. Hypertension. At home he takes metoprolol, Norvasc, Cozaar. Here I just have him on Lasix, as needed hydralazine, Imdur 60, Cozaar 100, metoprolol 100 twice daily. I will hold off on resuming the Norvasc at this time. 5. History of falls at home. His is already left for the day. I will see her tomorrow morning and discuss what the home situation is.
[2023-04-05] MEDS: CALCIUM CARBONATE CHEW 500 MG TABLET PO SCH (20:16)
[2023-04-05] MEDS: INSULIN GLARGINE-YFGN 300 UNIT/3 ML PEN SUBQ SCH (20:19)
[2023-04-06 05:55] LABS: BASOPHILS % (AUTO) 0.3 %; EOSINOPHILS # (AUTO) 0.1 10^3/uL (0.0-0.7); EOSINOPHILS % (AUTO) 1.4 %; HCT - HEMATOCRIT 28.2 % (42.0-52.0); HGB - HEMOGLOBIN 8.5 g/dL (14.0-18.0); LYMPHOCYTES # (AUTO) 1.5 10^3/uL (1.5-3.5); LYMPHOCYTES % (AUTO) 22.4 %; MEAN CORPUSCULAR HEMOGLOBIN 22.8 pg (27.0-31.0); MEAN CORPUSCULAR HGB CONC 30.1 g/dL (32.0-36.0); MEAN CORPUSCULAR VOLUME 75.8 fL (80.0-94.0); MEAN PLATELET VOLUME 11.1 fL (7.4-11.4); MONOCYTES # (AUTO) 0.8 10^3/uL (0.0-1.0); MONOCYTES % (AUTO) 12.5 %; NEUTROPHILS # (AUTO) 4.1 10^3/uL (1.5-6.6); NEUTROPHILS % (AUTO) 62.5 %; PLT - PLATELET COUNT 177 10^3/uL (130-450); RED BLOOD COUNT 3.72 10^6/uL (4.70-6.10); WHITE BLOOD COUNT 6.5 x10^3/uL (4.8-10.8)
[2023-04-06 06:04] LABS: CREATININE 1.4 mg/dL (0.6-1.2); POTASSIUM 3.9 mmol/L (3.5-5.0)
[2023-04-06] MEDS: EMPAGLIFLOZIN 25 MG PO SCH (07:47)
[2023-04-06] MEDS: MULTIVITAMIN W/MINERALS TABLET PO SCH (07:49)
[2023-04-06] MEDS: INSULIN LISPRO 300 UNIT/3 ML PEN SUBQ SCH ×4 (07:57→20:28)
[2023-04-06] MEDS ORDERED: SODIUM CHLORIDE 0.9% 500 ML IV ONE (08:09)
[2023-04-06] MEDS: TAMSULOSIN 0.4 MG CAPSULE PO SCH (08:10)
[2023-04-06] MEDS: ISOSORBIDE MONONITRATE ER 30 MG TABLET PO SCH (08:10)
[2023-04-06] MEDS: CALCIUM CARBONATE CHEW 500 MG TABLET PO SCH (08:11)
[2023-04-06] MEDS: LOSARTAN 50 MG TABLET PO SCH (08:11)
[2023-04-06] MEDS: FINASTERIDE 5 MG TABLET PO SCH (08:11)
[2023-04-06] MEDS: hydroCHLOROthiazide 25 MG TABLET PO SCH (08:11)
[2023-04-06] MEDS: ATORVASTATIN 40 MG TABLET PO SCH (08:11)
[2023-04-06] MEDS: SODIUM CHLORIDE FLUSH 0.9% 10 ML SYRINGE IVP SCH ×2 (08:14→17:57)
[2023-04-06] MEDS: METOPROLOL TARTRATE 50 MG TABLET PO SCH ×2 (08:55→20:27)
--- NOTE | 2023-04-06 14:24 | PROVIDER PROGRESS NOTE ---
Progress Note April 06, 2023 2:15 PM He was admitted on the evening of April 03 and I have seen him yesterday and today. Yesterday morning he was confused, Katerin. As the day went on he was more oriented. Today he is oriented to place, and why he is here. But then forgets and is repetitive in his questions. He is very pleasantly compliant. Very charming personality. Impulsive. Cannot remember warning instructions for how to ambulate and use DME appropriately. This is a gentleman who is on Eliquis for A-fib. He has had frequent falls. He is on Toprol-XL 200 mg a day, amlodipine, Imdur, Flomax and losartan. During his last 24 hours i have had to hold his metoprolol for bradycardia. I changed the metoprolol XL from 200 a day to 100 mg twice daily short acting. Consistently still bradycardic. So I have reduced it to 50 mg twice daily. I am concerned about orthostatic hypotension and falls at home. Other than the aches and pains of his face and the fall on his left side of his body, he denies any pain. He denies cough, shortness of breath. He was eating 75% of his food yesterday. Today he has eaten 100%. Oral intake is anywhere between 100 cc per shift and as high as 350 cc per shift. Active Medications Acetaminophen (Acetaminophen 325 Mg Tablet) 650 mg PO Q4HR PRN PRN Reason: Pain 1 to 4, or Fever Hydrocodone Bitart/Acetaminophen (Hydrocod/Acetam 5/325 Mg Tablet) 1 tab PO Q4HR PRN PRN Reason: Pain 5 to 7 Last Admin: 04/05/23 05:17 Dose: 1 tab Albuterol (Albuterol Neb 2.5 Mg/3 Ml) 2.5 mg INH Q4HR PRN PRN Reason: Wheezing Atorvastatin Calcium (Atorvastatin 40 Mg Tablet) 40 mg PO DAILY [facility] Last Admin: 04/06/23 08:11 Dose: 40 mg Calcium Carbonate/Glycine (Calcium Carbonate Chew 500 Mg Tablet) 500 mg PO BID [facility] Last Admin: 04/06/23 08:11 Dose: 500 mg Finasteride (Finasteride 5 Mg Tablet) 5 mg PO DAILY [facility] Last Admin: 04/06/23 08:11 Dose: 5 mg Hydralazine HCl (Hydralazine Inj 20 Mg/Ml Vial) 10 mg IVP Q4HR PRN PRN Reason: SBP> or= 160 OR DBP> or= 110 Hydrochlorothiazide (Hydrochlorothiazide 25 Mg Tablet) 25 mg PO DAILY [facility] Last Admin: 04/06/23 08:11 Dose: 25 mg Insulin Glargine-yfgn (Insulin Glargine-Yfgn 300 Unit/3 Ml Pen) 10 unit SUBQ QPM [facility] Last Admin: 04/05/23 20:19 Dose: 10 unit Insulin Human Lispro (Insulin Lispro 300 Unit/3 Ml Pen) 1 - 9 unit SUBQ 0800,1200,1700,2100 [facility]; Protocol Last Admin: 04/06/23 12:03 Dose: 3 unit Isosorbide Mononitrate (Isosorbide Mononitrate Er 30 Mg Tablet) 60 mg PO DAILY [facility] Last Admin: 04/06/23 08:10 Dose: 60 mg Losartan Potassium (Losartan 50 Mg Tablet) 100 mg PO DAILY [facility] Last Admin: 04/06/23 08:11 Dose: 100 mg Metoprolol Tartrate (Metoprolol Tartrate 50 Mg Tablet) 50 mg PO BID [facility] Last Admin: 04/06/23 08:55 Dose: 50 mg Multivitamins/Minerals (Multivitamin W/Minerals Tablet) 1 tab PO DAILYWM [facility] Last Admin: 04/06/23 07:49 Dose: 1 tab Ondansetron HCl (Ondansetron 4 Mg/2 Ml Vial) 4 mg IVP Q6HR PRN PRN Reason: Nausea / Vomiting Empagliflozin [ Jardiance] 25 Mg Tablet 1 each PO QDAC [facility] Last Admin: 04/06/23 07:47 Dose: 1 each Polyethylene Glycol (Polyethylene Glycol 3350 17 Gm Packet) 17 gm PO DAILY [facility] Sodium Chloride (Sodium Chloride Flush 0.9% 10 Ml Syringe) 10 ml IVP 0100,0900,1700 [facility] Last Admin: 04/06/23 08:14 Dose: 10 ml Sodium Chloride (Sodium Chloride Flush 0.9% 10 Ml Syringe) 10 ml IVP PRN PRN PRN Reason: NEEDED PER PROVIDER ORDERS Tamsulosin HCl (Tamsulosin 0.4 Mg Capsule) 0.4 mg PO DAILY [facility] Last Admin: 04/06/23 08:10 Dose: 0.4 mg Apixaban [Eliquis] 5 mg PO BID 06/05/22 Finasteride [Proscar] 5 mg PO DAILY 06/05/22 Isosorbide Mononitrate [Isosorbide Mononitrate ER] 60 mg PO DAILY 06/05/22 Losartan Potassium [Cozaar] 100 mg PO DAILY 06/05/22 Metoprolol Succinate [Toprol Xl] 200 mg PO DAILY 06/05/22 Tamsulosin [Flomax] 0.4 mg PO BID 06/05/22 glipiZIDE [Glipizide ER] 20 mg PO DAILY 06/05/22 Empagliflozin [Jardiance] 25 mg PO DAILY 01/15/23 Amlodipine Besylate [Norvasc] 10 mg PO DAILY 04/04/23 Furosemide [Lasix] 40 mg PO DAILY 04/04/23 Rosuvastatin Calcium [Crestor] 40 mg PO QPM 04/04/23 Vitals: Temperature is 36.4. Heart rate 60. Blood pressure 135/57. 12 respiratory rate, 95% on room air. Can go as high as 99%. Orthostatics have been with a supine blood pressure 127/59, heart rate 59. Sitting blood pressure is 127/63, pulse 64. Standing blood pressure is 126/64, heart rate 64. He was seen in his chair. He is already finished breakfast. Alert, oriented to self, situation. He cannot quite remember why he fell. Not clear that it is [place]. He and I shared our memories of the . [place] He laughed when I told him my favorite place [place]. Face has resolving ecchymosis, abrasions that are healing along his left eyebrow, periorbital left side. And along his left zygomatic arch. Extraocular movement intact. Pupil is reactive. Neck is supple without bruit Lungs are clear except for minimal crackles at the left lung base. No rhonchi or wheezing. No tachypnea. Very comfortable with speech and gesticulations. Regular rate and rhythm. Sinus pauses still noted no more than just under 3 seconds. Asymptomatic. Systolic ejection murmur. Abdomen is soft, nontender. Normal bowel sounds. Last bowel movement April 04. He does have urgency and frequency and is occasionally incontinent in his briefs. Extremities have no edema. Lab: Sodium 135, potassium 3.9, BUN 43, creatinine 1.4. I did stop IV fluids and he needs to be drinking enough to maintain hydration. Creatinine going from 1.3-1.4 could be lab variation or he needs to increase his p.o. intake. Glucose is 185, 150, 195. Calcium 9. White cell count is normal at 6.5. Hemoglobin 8.5. Hematocrit 28.2. Platelets 177 Assessment/plan 1. Acute congestive heart failure. Was initially on 4 L when he was admitted. By 04/04, he was down to 1 or 2 L. By 04/05 afternoon he was on room air. I am not seeing any leg edema. On review of the medical record there is no old echo to compare to. Echo was ordered by telehealth but our sterile processing technician is not available until April 08. I discontinued his Lasix 40 mg IV push and his last dose was 04/04. I was going to give him 20 mg IV push 04/05 but since he did not have edema or JVD and had improved 02 sat and was already on his HydroDIURIL, I opted not to give him any Lasix yesterday or today. Exam is still stable. In the meantime he is on Cozaar 100 mg daily. I had switched his Lopressor from 200 mg as a one-time dose to 100 mg twice daily. Plan: Home Lasix is 40 mg p.o. daily to start tomorrow. When he is discharged I will discharge on 20 mg in the morning and 20 mg at 8 PM. Continue Cozaar 100 and reduce Lopressor from 100 twice daily to 50 mg twice daily. Continue the holding parameters if pulse <60. Blood pressure is stable with this and he does not have orthostatic hypotension at this time that would increase risk of fall. Case management/utilization review tells me they were able to speak to the yesterday. The had been given a choice about which longterm facility he should go to. has identified [facility] as a facility she would like to see him at for temporary rehab. 2. Chronic atrial fibrillation. On examination and on telemetry he is in sinus rhythm. Rate is controlled. No change in management at this time. Although with a subarachnoid hemorrhage, I might want to recommend a Watchman procedure. Especially since the CAT scan shows a probable old hemorrhage in the past and this new 1 is subacute. I would recommend that the primary care provider, Dr. Feliciano, speak to his documentation billing clerk and the patient's family to discuss the pros and cons. 3. Type 2 diabetes mellitus, controlled, without complication, not on long-term insulin. In an 82-year-old, and A1c of 6.7% is tightly controlled. He may benefit from coming off glipizide and just staying on Jardiance. His primary care provider would need to make that decision. He is eating 100% of his food today. Once he started eating his meals regularly, his glucose has come up over the last 2 days. I started Lantus on the evening of April 05. Glucose was in the 200s yesterday. Today his glucose is 185, 150, 195. I think that is acceptable control in this 82-year-old demented gentleman. I will not aim for tighter control right now. Continue sliding scale. When he goes to SNF, I will resume Jardiance. Hold off on glipizide since it's on the [facility] list 4. Hypertension. At home he takes metoprolol, Norvasc, Cozaar. Here I just have him on Lasix IVP, as needed hydralazine, Imdur 60, Cozaar 100, metoprolol 100 twice daily. I have not resumed his Norvasc because his blood pressure has been acceptable. He is not orthostatic. Today I am decreasing his metoprolol to 50 mg twice a day. Tomorrow he will resume Lasix 20 mg p.o. twice daily. 5. History of falls at home. Physical therapy and Occupational Therapy have been working with this yao man. He was seen yesterday. We do not have PT on Sundays. He was oriented to self only. They recommended longterm facility with a four-wheel walker: Pt demonstrates good improvement in mobility today however continues to require CGA to minAx1 for transfers and short distance ambulation. Able to amb with FWW x10' and minAx1 due to poor standing balance and poor walker management. Pt with mild posterior LOB during first stand to sit transfer; fair carryover of david anthony with improved safety at end of session. Pt remains high fall risk due to dementia, weakness, balance impairments and fall history. When medically clear, PT cont to rec dc to SNF as pt is unable to safely mobilize in home. If pt returns home he will require 24/7 caregiver assistance as well as HHPT/OT/bathaide. If authorization is received for the longterm facility, he will be discharged tomorrow morning. 6. Contusion of left face due to fall. Films were done on admission and there were no fractures. They are healing nicely.
[2023-04-06] MEDS ORDERED: CALCIUM CARBONATE CHEW 500 MG TABLET PO PRN (14:44)
--- NOTE | 2023-04-06 14:48 | Discharge Plan ---
"Discharge Plan for SNF / [facility] - Discharge Plan And Transition Orders Problem Reviewed?: Yes Disposition: 03 SNF DC/Xfer Condition: Stable Allergies and Adverse Reactions: Allergies Allergy/AdvReac Type Severity Reaction Status Date / Time No Known Drug Allergies Allergy Verified 01/24/23 23:32 Health Concerns: This is an elderly gentleman who still lives in his own home with his . He has memory loss, uses 2 canes to ambulate because of ataxia of unclear etiology and is on Eliquis for chronic atrial fibrillation. He is also on medications, including Lasix, for congestive heart failure. He fell outside, tripped on the sidewalk curb and fell to the ground. No loss of consciousness. And had abrasions to his left orbital space, left eyebrow with bleeding and was brought to the emergency room after being on the ground for 10 to 15 minutes. While in the ER he developed hypoxemia and was felt to be in acute heart failure Plan of Treatment: 1. CHF with hypoxemia, requiring 4 L of nasal cannula, resolved by the second day once he was diuresed. Leg edema resolved quickly and lungs cleared; he is on room air. Lasix was discontinued on April 05. He received no Lasix on April 06. But will be resumed on 40 mg p.o. twice daily as his ususal home dose. Please weight often and check BMP and BNP to balance him or we will be overdiuresing him. I did not resume Norvasc. 2. He has chronic atrial fibrillation for which he is on metoprolol and Eliquis. He did not receive Eliquis during his stay. CAT scan identified him as having a subarachnoid bleed. Small. Neurosurgery was consulted at [facility] and they do not feel he needs to be transferred. However he is also identified as having old bleeds that have liquefied. So this patient may have been falling quite a bit at home. I would recommend that Eliquis be discontinued, and he be considered for a Watchman procedure but only after a conversation is held between his primary care provider, voice and data technician, and . Medications were adjusted during his stay.For anticoagulation only consider aspirin daily. He was also on metoprolol 200 mg once a day. Long-acting form. During his stay he has been consistently bradycardic. I came down to 100 mg short acting twice a day. And most recently he is on 50 mg short acting twice a day. I am postulating that some of his rate control medication and blood pressure medicine were leading to orthostatic problems and falls. 3. Diabetes was controlled with sliding scale insulin. When he started eating his meals, glucose went up to over 200. He was started on Lantus at night and there was good glucose control achieved plus sliding scale. However the patient is on Jardiance and glipizide at home. I would recommend resuming Jardiance but not glipizide. A1c is 6.7%. Glipizide is on the [facility] list. At this time I am sending him to the [facility] on glipizide but check his glucose daily. 4. Care Goals: To receive enough rehab that he can be brought back home under the care of his - SNF / [facility] Transition Orders Admit to (Facility): [facility] Under the care of (Name): [facility] Discharge Diagnosis: 1. Acute congestive heart failure, unspecified if systolic or diastolic 2. Chronic atrial fibrillation 3. History of falls at home 4. Type 2 diabetes mellitus, controlled, without complication without long-term use of insulin 5. Hypertension 6. Dementia without behavioral disorder 7. Gait ataxia Medicare Certification Statement: I cert[facility] medically necessary on a continuing basis for any of the conditions for which she/he is receiving care during hospitalization. Notify PCP of admission and forward orders to primary provider for signature. Weight on admission and: Daily Call PCP immediately if weight increases by: 2 kg Other Notification Orders: Call PCP immediately if patient develops dyspnea, chest pain/tightness or edema. House Bowel Program: Yes Additional Bowel Program Orders: If no BM after 2 days, nurse may give M.O.M. 30ml PO PRN and/or ducolax Supp 1 IN and/or SHARIF 250mg P.O., and/or senna 1-2 tabs PO. On day 3 nurse may give repeat above order until residents constipation is resolved. Annual Influenza Vaccine (between May 30 and December 27): Yes Treatments & Other Orders: BMP and BNP April 10 Lab Tests or X-ray Orders: bmp and bnp 04/14/23 Medication Orders: PLEASE REFER TO THE DISCHARGE MEDICATION LIST. Insulin Orders?: No - Medications New Prescriptions: Metoprolol Tartrate [Lopressor] 50 mg PO BID #1 tab - Diet Type: No added sugar Texture: Regular Liquids: Thin May have monthly special meal: Yes - Therapies | Activity Therapy: Evaluation | Treat if indicated: PT, OT Rehabilitation Potential: Maximize functional status, Return to independent living Activity: Activity as Tolerated Weight Bearing: Full Weight Assistance Devices: Walker Additional Instructions: . Follow Up: Please see Mariely Feliciano in followup in the next 1-2 weeks."
[2023-04-06] MEDS: INSULIN GLARGINE-YFGN 300 UNIT/3 ML PEN SUBQ SCH (20:28)
[2023-04-07] MEDS: SODIUM CHLORIDE FLUSH 0.9% 10 ML SYRINGE IVP SCH ×2 (04:02→08:54)
[2023-04-07] MEDS: ISOSORBIDE MONONITRATE ER 30 MG TABLET PO SCH (08:50)
[2023-04-07] MEDS: MULTIVITAMIN W/MINERALS TABLET PO SCH (08:50)
[2023-04-07] MEDS: FINASTERIDE 5 MG TABLET PO SCH (08:50)
[2023-04-07] MEDS: METOPROLOL TARTRATE 50 MG TABLET PO SCH (08:51)
[2023-04-07] MEDS: TAMSULOSIN 0.4 MG CAPSULE PO SCH (08:51)
[2023-04-07] MEDS: LOSARTAN 50 MG TABLET PO SCH (08:52)
[2023-04-07] MEDS: ATORVASTATIN 40 MG TABLET PO SCH (08:52)
[2023-04-07] MEDS: INSULIN LISPRO 300 UNIT/3 ML PEN SUBQ SCH ×2 (08:52→11:59)
[2023-04-07] MEDS: hydroCHLOROthiazide 25 MG TABLET PO SCH (08:52)
[2023-04-07] MEDS: polyethylene glycoL 3350 17 GM PACKET PO SCH ×2 (08:53→10:07)
[2023-04-07] MEDS ORDERED: FUROSEMIDE 40 MG TABLET PO SCH (09:00)
[2023-04-07] MEDS: EMPAGLIFLOZIN 25 MG PO SCH (09:07)
--- NOTE | 2023-04-07 14:56 | Discharge Plan ---
Discharge Plan Problem Reviewed?: Yes Disposition: Home Health Service Condition: Stable Prescriptions: Metoprolol Tartrate [Lopressor] 50 mg PO BID #1 tab Diet: Low Sodium Activity Restrictions: Activity as Tolerated Assistance Devices: Walker Weight Bearing: Full Weight Health Concerns: You have memory loss and need 2 canes to ambulate because you have loss of balance. It is unclear why your balance is off but you do take a blood thinner for your atrial fibrillation. You fell outside, tripped on a sidewalk curb, and fell to the ground and hit your head. Your brought you to the emergency room. You had cut up the skin around your left eye, and left protestant. We made sure that you did not need to have a suture to the left face. A CAT scan done showed you to have bleeding on your brain because of the blow to your head. It is a new bleed. But the CAT scan also showed that you had a previous bleed before. While in the emergency room you had a low oxygen and we found you to also have some congestive heart failure. Our treatment consisted of diuresing you and making you have quite a bit of urine output. We were able to get about 6 pounds of water weight off of you. Your breathing much better and your oxygen level is normal. We also noticed that your heart rate was too slow. That could be the cause of you having balance problems and falling. Plan of Treatment: We have resumed her usual Lasix of 40 mg twice a day. Make sure you see your it program manager or primary care provider in follow-up. Make sure that you are weighing yourself every day. If your weight goes up by more than 3 pounds in 1 day, speak to your cardiology or primary care office to make sure that your Lasix does not need to be adjusted. I stopped your Norvasc because that will contribute to water weight and swollen ankles. Your blood pressure was low enough that you did not need to be on it. We think that your falls combined with the drug Eliquis has resulted in 2 brain bleeds. I think it is too dangerous for you to stay on Eliquis. So I am stopping your Eliquis. But you need to talk to your it program manager about what type of blood thinner you do need to be on. The only blood thinner I want you to be on right now is aspirin 81 mg a day I changed your Toprol XL. You take 200 mg a day. Your pulse rate was very low with this. Over the last 2 days I have changed your Toprol to 50 mg, short acting metoprolol twice a day. I will call that into your pharmacy for you to take. Do not take your original Toprol-XL 200 mg. Consider stopping one of your diabetic meds. I would recommend stopping the glipizide but staying on the Jardiance. Your glucose was very good while here. And you may not need such tight control when you go back home. Care Goals: You have quite a bit of memory loss. Your would prefer for you to stay at home. So her goal is for you to stay at home indefinitely. There is no future plan for assisted facility. She does need to look at the possibility of hiring caregivers for you. Assessment: Patient is pleasantly demented. Had sundowning the night before discharge. But during the day very easily prompted Additional Instructions or Follow Up instructions: . No Smoking: If you smoke, Please STOP! Call for help. Follow-up with: Mariely Feliciano MD [Primary Care Provider] -
[2023-04-07 15:32] VITALS: BP 131/61
--- NOTE | 2023-04-08 09:59 | DISCHARGE SUMMARY ---
"Discharge Summary Admit Date: 04/03/23 Discharge Date: 04/07/23 Discharging Provider: Ayla Solis MD Primary Care Provider: Mariely Feliciano MD Code Status: Do Not Attempt Resuscitation Condition at Discharge: Stable Discharge Disposition: [facility] - DIAGNOSES Discharge Diagnoses with Status of Each Condition: 1. Acute congestive heart failure, unspecified if systolic or diastolic 2. Chronic atrial fibrillation chronic anticoagulation 3. History of falls at home 4. Subarachnoid hemorrhage 5. contusion of face 6. Type 2 diabetes mellitus, controlled, without complication without long-term use of insulin 7. Hypertension 8. Dementia with behavioral disorder 9. Gait ataxia - HPI History of Present Illness: 82M c gait instability and uses 2 canes to ambulate, atrial fibrillation on Jyoti judy, and CHF on Lasix who presents to the ED with fall at home. Patient subsequently did injury his head and was brought into the ED for evaluation after being on the ground for 10-15mins. While here in the ED, developed O2 needs and was deemed in acute CHF exacerbation. Patient has dementia. He was not able to fully provide all information. was at bedside at provided the necessary details. Patient has hx of hip and knee surgery leading to gait imbalance and use of 2 canes for ambulation. Patient was outside and tripped on the sidewalk curb and fell to the ground. Patient had injury his head but no report of LOC. No chest pain, SOB, or palpitation reported aurora event. Patient was brought into the ED where he was discovered to have stable SAH. ED did reachout to trauma surgery Dr. Jim and received recommendation for no intervention and ok for discharge per ED staff. Currently patient denies headhead and no vision changes. no double vision. no n/v. While in the ED, patient developed SOB and required O2. He was noted for BLE swelling. reported increase BLE swelling. He had been on HCTZ and was changed to another antihypertensive recently. No fever. No URI sxs. No report of orthopnea. Patient does take his Lasix. - Past Medical History Cardiovascular: reports: Hypertension, High cholesterol, DC, Atrial fibrillation Neuro: reports: Dementia Endocrine/Autoimmune: reports: Type 2 diabetes : reports: Benign prostate hypertrophy Musculoskeletal: reports: Osteoarthritis MRSA Hx?: No - Past Surgical History Ortho: reports: Hip replacement, Knee replacement - CONSULTS | PROCEDURES Procedures: Head CT was suspected areas of small arachnoid hemorrhage along the right frontal and temporal lobes and a second CT was done and showed no change from size and morphology on previous CT. Curvilinear region of cortical high density mild volume loss in the medial right occipital lobe appears unchanged from prior studies and are suggestive of laminar necrosis. Increased pulmonary vascular prominence representing pulmonary edema 3 views of the wrist had no definite acute fracture or dislocation but he had deformity of the distal radius and scaphoid compatible with sequela of prior fracture. - HOSPITAL COURSE Hospital Course: Health Concerns: This is an elderly gentleman who still lives in his own home with his . He has memory loss, uses 2 canes to ambulate because of ataxia of unclear etiology and is on Eliquis for chronic atrial fibrillation. He is also on medications, including Lasix, for congestive heart failure. He fell outside, tripped on the sidewalk curb and fell to the ground. No loss of consciousness. And had abrasions to his left orbital space, left eyebrow with bleeding and was brought to the emergency room after being on the ground for 10 to 15 minutes. While in the ER he developed hypoxemia and was felt to be in acute heart failure Plan of Treatment: 1. CHF with hypoxemia, requiring 4 L of nasal cannula, resolved by the second day once he was diuresed. Leg edema resolved quickly and lungs cleared; he is on room air. Lasix was discontinued on April 05. He received no Lasix on April 06. But will be resumed on 40 mg p.o. twice daily as his ususal home dose. I am asking PCP office to please weigh often and check BMP and BNP on 1-2 weeks for fluid balance check or we will be overdiuresing him. I did not resume Norvasc. 2. He has chronic atrial fibrillation for which he is on metoprolol and Eliquis. He did not receive Eliquis during his stay. CAT scan identified him as having a subarachnoid bleed. Small. Neurosurgery was consulted at [facility] and they do not feel he needs to be transferred. However he is also identified as having old bleeds that have liquefied. So this patient may have been falling quite a bit at home. I would recommend that Eliquis be discontinued, and he be considered for a Watchman procedure but only after a conversation is held between his primary care provider, [employer], and . Medications were adjusted during his stay. For anticoagulation only consider aspirin daily. He was also on metoprolol 200 mg once a day. Long-acting form. During his stay he has been consistently bradycardic. I came down to 100 mg short acting twice a day. And most recently he is on 50 mg short acting twice a day. I am postulating that some of his rate control medication and blood pressure medicine were leading to orthostatic problems and falls. 3. Diabetes was controlled with sliding scale insulin. When he started eating his meals, glucose went up to over 200. He was started on Lantus at night and there was good glucose control achieved plus sliding scale. However the patient is on Jardiance and glipizide at home. I would recommend resuming Jardiance but not glipizide. A1c is 6.7%. Glipizide is on the [facility] list. At discharge he was identified as being deconditioned, impulsive. And physical therapy felt that he really needed to go to alf facility for rehab. declined transfer and felt that she could take care of him at home and requested home health PT/OT/bath aide/RN. At discharge he was an exceedingly pleasant charming elderly man. Resolving and healing abrasions along the zygomatic arch on the left, left eyebrow, and periorbital. But no facial asymmetry. Pupils were normal. Speech was normal. He is an exceedingly forgetful gentleman. Heart rate 64. Blood pressure 131/61. Respirations 18. 98% on room air. When he was admitted he did have 2+ edema, and had some minimal crackles. By discharge his lungs were completely clear and he had [place] no edema. Neck was without JVD. Abdomen was benign. He is oriented to self only. He needs moderate cueing to be able to go from supine to sitting and to scoot to the edge of the bed. Using the urinal requires max assist for set up. He needed contact-guard assist due to poor seated balance and has impaired hand hygiene technique after. He follows cues appropriately but requires constant verbal and manual stream with cues to attend to the task. He is able to go from sit to stand with a front wheel walker and max cues for sequencing. Standing balance was poor. He was able to walk 15 feet and required 1 physical cue and 3 physical cues. He really has poor trunk control. If he returns home, they recommended 24/caregiver assistance with home health. Greater than 30 minutes was spent coordinating discharge and discussing his risk of falls at home. I have asked the to make sure that she has him follow-up with cardiology and primary care to discuss the question of Darrel and to make sure that his CHF is staying in balance. This document was made in part using voice recognition software. While efforts are made to proofread this document, sound alike and grammatical errors may occur. - ALLERGIES Allergies/Adverse Reactions: Allergies Allergy/AdvReac Type Severity Reaction Status Date / Time No Known Drug Allergies Allergy Verified 01/24/23 23:32 - MEDICATIONS Home Medications: Ambulatory Orders Medication Instructions Recorded Confirmed Isosorbide Mononitrate [Isosorbide 60 mg PO DAILY 06/05/22 04/04/23 Mononitrate ER] Losartan Potassium [Cozaar] 100 mg PO DAILY 06/05/22 04/04/23 Acetaminophen [Tylenol] 650 mg PO Q4HR PRN tab 04/07/23 Albuterol 2.5 mg INH Q4HR PRN ml 04/07/23 Empagliflozin [Jardiance] 25 mg PO DAILY #0 04/07/23 04/04/23 Finasteride [Proscar] 5 mg PO DAILY #0 04/07/23 04/04/23 Furosemide [Lasix] 40 mg PO DAILY #0 04/07/23 04/04/23 Losartan [Cozaar] 100 mg PO DAILY tab 04/07/23 Metoprolol Tartrate [Lopressor] 50 mg PO BID #1 tab 04/07/23 Multivitamin W/Minerals [Theragran 1 tab PO DAILYWM tab 04/07/23 M] Rosuvastatin Calcium [Crestor] 40 mg PO QPM #0 04/07/23 04/04/23 Tamsulosin [Flomax] 0.4 mg PO BID #0 04/07/23 04/04/23 glipiZIDE [Glipizide ER] 20 mg PO DAILY #0 04/07/23 04/04/23 - LABS Result Diagrams: 04/06/23 04:56 04/06/23 04:56"
== END 2023-04-07 15:30 | disposition home health service (06) | DRG 86 ==
LOC: EDUNIT# → ED 16:47 → ICU 22:52 → OBSVTOIN 22:52 → INTOOBSV 22:52 → MS2 04-06 13:53
PROVIDERS: ADMIT Internal Medicine; ATTEND Specialist
DX: S06.6X0A Traumatic subarachnoid hemorrhage without loss of consciousness, initial encounter (principal); W19.XXXA Unspecified fall, initial encounter; F03.918 Unspecified dementia, unspecified severity, with other behavioral disturbance; I48.91 Unspecified atrial fibrillation; I48.20 Chronic atrial fibrillation, unspecified; R26.89 Other abnormalities of gait and mobility; I13.0 Hypertensive heart and chronic kidney disease with heart failure and stage 1 through stage 4 chronic kidney disease, or unspecified chronic kidney disease; I11.0 Hypertensive heart disease with heart failure; N17.9 Acute kidney failure, unspecified; W01.0XXA Fall on same level from slipping, tripping and stumbling without subsequent striking against object, initial encounter; R26.0 Ataxic gait; E11.9 Type 2 diabetes mellitus without complications; I44.7 Left bundle-branch block, unspecified; M25.531 Pain in right wrist; F03.90 Unspecified dementia, unspecified severity, without behavioral disturbance, psychotic disturbance, mood disturbance, and anxiety; R53.1 Weakness; R00.1 Bradycardia, unspecified; N40.0 Benign prostatic hyperplasia without lower urinary tract symptoms; R41.3 Other amnesia; R09.02 Hypoxemia; N18.30 Chronic kidney disease, stage 3 unspecified; E11.22 Type 2 diabetes mellitus with diabetic chronic kidney disease; E78.5 Hyperlipidemia, unspecified; S01.112A Laceration without foreign body of left eyelid and periocular area, initial encounter; S01.81XA Laceration without foreign body of other part of head, initial encounter; E86.0 Dehydration; I50.9 Heart failure, unspecified; Z79.01 Long term (current) use of anticoagulants; Z91.81 History of falling; I25.2 Old myocardial infarction; Z79.84 Long term (current) use of oral hypoglycemic drugs
CPT/HCPCS: 12013; 36415; 70450; 71045; 73110; 80048; 80053; 82330; 83735; 83880; 84100; 84132; 84484; 85025; 85610; 86850; 86900; 86901; 87150; 90471; 90715; 93005; 96374; 97162; 97530; 99285; A9270; J1815

== ENCOUNTER 2023-05-01 07:49 | Outpatient (CLI) | payer MEDICARE, OTHER | END 2023-05-01 23:59 | disposition critical access hospital (66) | LOC: EMS 07:49 | DX: M25.511 Pain in right shoulder (principal); R41.0 Disorientation, unspecified; R46.4 Slowness and poor responsiveness; R53.1 Weakness | CPT/HCPCS: A0425; A0429 ==

== ENCOUNTER 2023-05-01 08:31 | Emergency (ER) | payer MEDICARE, OTHER ==
--- OUTSIDE RECORDS SUMMARY | 2023-05-01 08:50 | EXTERNAL MEDICAL SUMMARY RPT | Continuity of Care Document ---
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 Name Role Phone Unavailable Unavailable Unavailable Andi, Provider Unavailable Unavailable Medications date description facility 2023-02-24 00:00 [facility] 2023-02-25 00:00 [facility] 2023-04-03 00:00 [facility] 2023-04-04 00:00 [facility] 2023-04-05 00:00 [facility]aban [facility] 2023-04-06 00:00 [facility] 2023-04-07 00:00 [facility]aban [facility] 2023-02-24 00:00 hydrochlorothiazide [facility] 2023-02-25 00:00 hydrochlorothiazide [facility] 2023-04-03 00:00 hydrochlorothiazide [facility] 2023-04-04 00:00 hydrochlorothiazide [facility] 2023-04-05 00:00 hydrochlorothiazide [facility] 2023-04-06 00:00 hydrochlorothiazide [facility] 2023-04-07 00:00 hydrochlorothiazide [facility] 2023-02-24 00:00 oxycodone [facility] 2023-02-25 00:00 oxycodone [facility] 2023-04-03 00:00 oxycodone [facility] 2023-04-04 00:00 oxycodone [facility] 2023-04-05 00:00 oxycodone [facility] 2023-04-06 00:00 oxycodone [facility] 2023-04-07 00:00 oxycodone [facility] 2023-02-24 00:00 empagliflozin [facility] [place] 2023-02-25 00:00 empagliflozin [facility] [place] 2023-04-03 00:00 empagliflozin [facility] [place] 2023-04-04 00:00 empagliflozin [facility] 2023-04-05 00:00 empagliflozin [facility] 2023-04-06 00:00 empagliflozin [facility] 2023-04-07 00:00 empagliflozin [facility] 2023-02-24 00:00 blood-glucose meter [facility] [place] 2023-02-25 00:00 blood-glucose meter [facility] 2023-04-03 00:00 blood-glucose meter [facility] 2023-04-04 00:00 blood-glucose meter [facility] 2023-04-05 00:00 blood-glucose meter [facility] 2023-04-06 00:00 blood-glucose meter [facility] 2023-04-07 00:00 blood-glucose meter [facility] 2023-02-24 00:00 blood-glucose meter [facility] 2023-02-25 00:00 blood-glucose meter [facility] 2023-04-03 00:00 blood-glucose meter [facility] 2023-04-04 00:00 blood-glucose meter [facility] 2023-04-05 00:00 blood-glucose meter [facility] 2023-04-06 00:00 blood-glucose meter [facility] 2023-04-07 00:00 blood-glucose meter [facility] 2023-02-24 00:00 hydrochlorothiazide [facility] 2023-02-25 00:00 hydrochlorothiazide [facility] 2023-04-03 00:00 hydrochlorothiazide [facility] 2023-04-04 00:00 hydrochlorothiazide [facility] 2023-04-05 00:00 hydrochlorothiazide [facility] 2023-04-06 00:00 hydrochlorothiazide [facility] 2023-04-07 00:00 hydrochlorothiazide [facility] 2023-02-24 00:00 alcohol swabs [facility] 2023-02-25 00:00 alcohol swabs [facility] 2023-04-03 00:00 alcohol swabs [facility] 2023-04-04 00:00 alcohol swabs [facility] 2023-04-05 00:00 alcohol swabs [facility] 2023-04-06 00:00 alcohol swabs [facility] 2023-04-07 00:00 alcohol swabs [facility] 2023-02-24 00:00 oxycodone [facility] [place] 2023-02-25 00:00 oxycodone [facility] [place] 2023-04-03 00:00 oxycodone [facility] [place] 2023-04-04 00:00 oxycodone [facility] [place] 2023-04-05 00:00 oxycodone [facility] [place] 2023-04-06 00:00 oxycodone [facility] [place] 2023-04-07 00:00 oxycodone [facility] [place] 2023-02-24 00:00 docusate calcium [facility] [place] 2023-02-25 00:00 docusate calcium [facility] [place] 2023-04-03 00:00 docusate calcium [facility] [place] 2023-04-04 00:00 docusate calcium [facility] [place] 2023-04-05 00:00 docusate calcium [facility] [place] 2023-04-06 00:00 docusate calcium [facility] [place] 2023-04-07 00:00 docusate calcium [facility] [place] 2023-02-24 00:00 apixaban [facility] [place] 2023-02-25 00:00 apixaban [facility] [place] 2023-04-03 00:00 apixaban [facility] [place] 2023-04-04 00:00 apixaban [facility] [place] 2023-04-05 00:00 apixaban [facility] [place] 2023-04-06 00:00 apixaban [facility] [place] 2023-04-07 00:00 apixaban [facility] [place] 2023-02-24 00:00 empagliflozin [facility] [place] 2023-02-25 00:00 empagliflozin [facility] [place] 2023-04-03 00:00 empagliflozin [facility] [place] 2023-04-04 00:00 empagliflozin [facility] [place] 2023-04-05 00:00 empagliflozin [facility] [place] 2023-04-06 00:00 empagliflozin [facility] [place] 2023-04-07 00:00 empagliflozin [facility] [place] 2023-02-24 00:00 naloxone [facility] [place] 2023-02-25 00:00 naloxone [facility] [place] 2023-04-03 00:00 naloxone [facility] [place] 2023-04-04 00:00 naloxone [facility] [place] 2023-04-05 00:00 naloxone [facility] [place] 2023-04-06 00:00 naloxone [facility] [place] 2023-04-07 00:00 naloxone [facility] [place] 2023-02-24 00:00 apixaban [facility] [place] 2023-02-25 00:00 apixaban [facility] [place] 2023-04-03 00:00 apixaban [facility] [place] 2023-04-04 00:00 apixaban [facility] [place] 2023-04-05 00:00 apixaban [facility] [place] 2023-04-06 00:00 apixaban [facility] [place] 2023-04-07 00:00 apixaban [facility] [place] 2023-02-24 00:00 blood-glucose meter [facility] [place] 2023-02-25 00:00 blood-glucose meter [facility] [place] 2023-04-03 00:00 blood-glucose meter [facility] 2023-04-04 00:00 blood-glucose meter [facility] 2023-04-05 00:00 blood-glucose meter [facility] 2023-04-06 00:00 blood-glucose meter [facility] 2023-04-07 00:00 blood-glucose meter [facility] 2023-02-24 00:00 empagliflozin [facility] 2023-02-25 00:00 empagliflozin [facility] 2023-04-03 00:00 empagliflozin [facility] 2023-04-04 00:00 empagliflozin [facility] 2023-04-05 00:00 empagliflozin [facility] 2023-04-06 00:00 empagliflozin [facility] [place] 2023-04-07 00:00 empagliflozin [facility] 2023-02-24 00:00 naloxone [facility] [place] 2023-02-25 00:00 naloxone [facility] 2023-04-03 00:00 naloxone [facility] 2023-04-04 00:00 naloxone [facility] 2023-04-05 00:00 naloxone [facility] 2023-04-06 00:00 naloxone [facility] 2023-04-07 00:00 naloxone [facility] 2023-02-24 00:00 aspirin [facility] 2023-02-25 00:00 aspirin [facility] 2023-04-03 00:00 aspirin [facility] 2023-04-04 00:00 aspirin [facility] 2023-04-05 00:00 aspirin [facility] 2023-04-06 00:00 aspirin [facility] 2023-04-07 00:00 aspirin [facility] 2023-02-24 00:00 blood-glucose meter [facility] 2023-02-25 00:00 blood-glucose meter [facility] 2023-04-03 00:00 blood-glucose meter [facility] 2023-04-04 00:00 blood-glucose meter [facility] 2023-04-05 00:00 blood-glucose meter [facility] 2023-04-06 00:00 blood-glucose meter [facility] 2023-04-07 00:00 blood-glucose meter [facility] 2023-02-24 00:00 lidocaine [facility] 2023-02-25 00:00 lidocaine [facility] 2023-04-03 00:00 lidocaine [facility] 2023-04-04 00:00 lidocaine [facility] 2023-04-05 00:00 lidocaine [facility] 2023-04-06 00:00 lidocaine [facility] 2023-04-07 00:00 lidocaine [facility] 2023-02-24 00:00 aspirin [facility] 2023-02-25 00:00 aspirin [facility] 2023-04-03 00:00 aspirin [facility] 2023-04-04 00:00 aspirin [facility] 2023-04-05 00:00 aspirin [facility] [place] 2023-04-06 00:00 aspirin [facility] [place] 2023-04-07 00:00 aspirin [facility] [place] 2023-02-24 00:00 aspirin [facility] [place] 2023-02-25 00:00 aspirin [facility] [place] 2023-04-03 00:00 aspirin [facility] [place] 2023-04-04 00:00 aspirin [facility] [place] 2023-04-05 00:00 aspirin [facility] [place] 2023-04-06 00:00 aspirin [facility] [place] 2023-04-07 00:00 aspirin [facility] [place] 2023-02-24 00:00 aspirin [facility] [place] 2023-02-25 00:00 aspirin [facility] [place] 2023-04-03 00:00 aspirin [facility] [place] 2023-04-04 00:00 aspirin [facility] [place] 2023-04-05 00:00 aspirin [facility] [place] 2023-04-06 00:00 aspirin [facility] [place] 2023-04-07 00:00 aspirin [facility] [place] 2023-02-24 00:00 empagliflozin [facility] [place] 2023-02-25 00:00 empagliflozin [facility] [place] 2023-04-03 00:00 empagliflozin [facility] [place] 2023-04-04 00:00 empagliflozin [facility] [place] 2023-04-05 00:00 empagliflozin [facility] [place] 2023-04-06 00:00 empagliflozin [facility] [place] 2023-04-07 00:00 empagliflozin [facility] [place] 2023-02-24 00:00 alendronate [facility] 2023-02-25 00:00 alendronate [facility] 2023-04-03 00:00 alendronate [facility] 2023-04-04 00:00 alendronate [facility] 2023-04-05 00:00 alendronate [facility] 2023-04-06 00:00 alendronate [facility] 2023-04-07 00:00 alendronate [facility] 2023-02-24 00:00 hydrochlorothiazide [facility] 2023-02-25 00:00 hydrochlorothiazide [facility] 2023-04-03 00:00 hydrochlorothiazide [facility] 2023-04-04 00:00 hydrochlorothiazide [facility] 2023-04-05 00:00 hydrochlorothiazide [facility] 2023-04-06 00:00 hydrochlorothiazide [facility] 2023-04-07 00:00 hydrochlorothiazide [facility] 2023-02-24 00:00 hydrochlorothiazide [facility] 2023-02-25 00:00 hydrochlorothiazide [facility] 2023-04-03 00:00 hydrochlorothiazide [facility] 2023-04-04 00:00 hydrochlorothiazide [facility] 2023-04-05 00:00 hydrochlorothiazide [facility] 2023-04-06 00:00 hydrochlorothiazide [facility] 2023-04-07 00:00 hydrochlorothiazide [facility] [place] 2023-02-24 00:00 oxycodone [facility] [place] 2023-02-25 00:00 oxycodone [facility] [place] 2023-04-03 00:00 oxycodone [facility] [place] 2023-04-04 00:00 oxycodone [facility] [place] 2023-04-05 00:00 oxycodone [facility] [place] 2023-04-06 00:00 oxycodone [facility] [place] 2023-04-07 00:00 oxycodone [facility] [place] 2023-02-24 00:00 docusate calcium [facility] [place] 2023-02-25 00:00 docusate calcium [facility] [place] 2023-04-03 00:00 docusate calcium [facility] [place] 2023-04-04 00:00 docusate calcium [facility] [place] 2023-04-05 00:00 docusate calcium [facility] [place] 2023-04-06 00:00 docusate calcium [facility] [place] 2023-04-07 00:00 docusate calcium [facility] [place] 2023-02-24 00:00 aspirin [facility] [place] 2023-02-25 00:00 aspirin [facility] [place] 2023-04-03 00:00 aspirin [facility] [place] 2023-04-04 00:00 aspirin [facility] [place] 2023-04-05 00:00 aspirin [facility] [place] 2023-04-06 00:00 aspirin [facility] [place] 2023-04-07 00:00 aspirin [facility] [place] 2023-02-24 00:00 lidocaine [facility] [place] 2023-02-25 00:00 lidocaine [facility] [place] 2023-04-03 00:00 lidocaine [facility] [place] 2023-04-04 00:00 lidocaine [facility] [place] 2023-04-05 00:00 lidocaine [facility] [place] 2023-04-06 00:00 lidocaine [facility] [place] 2023-04-07 00:00 lidocaine [facility] [place] 2023-02-24 00:00 docusate calcium [facility] [place] 2023-02-25 00:00 docusate calcium [facility] [place] 2023-04-03 00:00 docusate calcium [facility] [place] 2023-04-04 00:00 docusate calcium [facility] [place] 2023-04-05 00:00 docusate calcium [facility] [place] 2023-04-06 00:00 docusate calcium [facility] [place] 2023-04-07 00:00 docusate calcium [facility] [place] 2023-02-24 00:00 aspirin [facility] [place] 2023-02-25 00:00 aspirin [facility] [place] 2023-04-03 00:00 aspirin [facility] [place] 2023-04-04 00:00 aspirin [facility] [place] 2023-04-05 00:00 aspirin [facility] [place] 2023-04-06 00:00 aspirin [facility] [place] 2023-04-07 00:00 aspirin [facility] [place] 2023-02-24 00:00 oxycodone [facility] [place] 2023-02-25 00:00 oxycodone [facility] [place] 2023-04-03 00:00 oxycodone [facility] [place] 2023-04-04 00:00 oxycodone [facility] [place] 2023-04-05 00:00 oxycodone [facility] [place] 2023-04-06 00:00 oxycodone [facility] [place] 2023-04-07 00:00 oxycodone [facility] [place] 2023-02-24 00:00 alendronate [facility] [place] 2023-02-25 00:00 alendronate [facility] [place] 2023-04-03 00:00 alendronate [facility] [place] 2023-04-04 00:00 alendronate [facility] [place] 2023-04-05 00:00 alendronate [facility] [place] 2023-04-06 00:00 alendronate [facility] [place] 2023-04-07 00:00 alendronate [facility] [place] 2023-02-24 00:00 alcohol swabs [facility] [place] 2023-02-25 00:00 alcohol swabs [facility] [place] 2023-04-03 00:00 alcohol swabs [facility] [place] 2023-04-04 00:00 alcohol swabs [facility] [place] 2023-04-05 00:00 alcohol swabs [facility] [place] 2023-04-06 00:00 alcohol swabs [facility] [place] 2023-04-07 00:00 alcohol swabs [facility] [place] 2023-02-24 00:00 alendronate [facility] [place] 2023-02-25 00:00 alendronate [facility] [place] 2023-04-03 00:00 alendronate [facility] [place] 2023-04-04 00:00 alendronate [facility] [place] 2023-04-05 00:00 alendronate [facility] [place] 2023-04-06 00:00 alendronate [facility] [place] 2023-04-07 00:00 alendronate [facility] [place] 2023-02-24 00:00 docusate calcium [facility] [place] 2023-02-25 00:00 docusate calcium [facility] [place] 2023-04-03 00:00 docusate calcium [facility] [place] 2023-04-04 00:00 docusate calcium [facility] [place] 2023-04-05 00:00 docusate calcium [facility] [place] 2023-04-06 00:00 docusate calcium [facility] [place] 2023-04-07 00:00 docusate calcium [facility] [place] 2023-02-24 00:00 naloxone [facility] [place] 2023-02-25 00:00 naloxone [facility] [place] 2023-04-03 00:00 [facility] [place] 2023-04-04 00:00 [facility] [place] 2023-04-05 00:00 [facility] [place] 2023-04-06 00:00 [facility] [place] 2023-04-07 00:00 [facility] [place] 2023-02-24 00:00 [facility]ixaban [facility] [place] 2023-02-25 00:00 apixaban [facility] [place] 2023-04-03 00:00 apixaban [facility] [place] 2023-04-04 00:00 apixaban [facility] [place] 2023-04-05 00:00 [facility]ixaban [facility] [place] 2023-04-06 00:00 [facility]ixaban [facility] [place] 2023-04-07 00:00 apixaban [facility] [place] 2023-02-24 00:00 [facility]endronate [facility] [place] 2023-02-25 00:00 [facility]endronate [facility] [place] 2023-04-03 00:00 [facility]endronate [facility] [place] 2023-04-04 00:00 [facility]endronate [facility] [place] 2023-04-05 00:00 [facility]endronate [facility] [place] 2023-04-06 00:00 [facility]endronate [facility] [place] 2023-04-07 00:00 [facility]endronate [facility] [place] 2023-02-24 00:00 lidocaine [facility] [place] 2023-02-25 00:00 [facility]ocaine [facility] [place] 2023-04-03 00:00 lidocaine [facility] [place] 2023-04-04 00:00 lidocaine [facility] [place] 2023-04-05 00:00 lidocaine [facility] [place] 2023-04-06 00:00 lidocaine [facility] [place] 2023-04-07 00:00 lidocaine [facility] [place] 2023-02-24 00:00 [facility]aloxone [facility] [place] 2023-02-25 00:00 [facility] [place] 2023-04-03 00:00 [facility] [place] 2023-04-04 00:00 [facility] [place] 2023-04-05 00:00 [facility] [place] 2023-04-06 00:00 [facility] [place] 2023-04-07 00:00 [facility] [place] 2023-02-24 00:00 blood-glucose meter [facility] [place] 2023-02-25 00:00 blood-glucose meter [facility] [place] 2023-04-03 00:00 blood-glucose meter [facility] [place] 2023-04-04 00:00 blood-glucose meter [facility] [place] 2023-04-05 00:00 blood-glucose meter [facility] [place] 2023-04-06 00:00 blood-glucose meter [facility] [place] 2023-04-07 00:00 blood-glucose meter [facility] [place] 2023-02-24 00:00 blood-glucose meter [facility] [place] 2023-02-25 00:00 blood-glucose meter [facility] [place] 2023-04-03 00:00 blood-glucose meter [facility] [place] 2023-04-04 00:00 blood-glucose meter [facility] [place] 2023-04-05 00:00 blood-glucose meter [facility] [place] 2023-04-06 00:00 blood-glucose meter [facility] [place] 2023-04-07 00:00 blood-glucose meter [facility] [place] 2023-02-24 00:00 alcohol swabs [facility] [place] 2023-02-25 00:00 alcohol swabs [facility] [place] 2023-04-03 00:00 alcohol swabs [facility] [place] 2023-04-04 00:00 alcohol swabs [facility] [place] 2023-04-05 00:00 alcohol swabs [facility] [place] 2023-04-06 00:00 alcohol swabs [facility] [place] 2023-04-07 00:00 alcohol swabs [facility] [place] 2023-02-24 00:00 magnesium hydroxide [facility] [place] 2023-02-25 00:00 magnesium hydroxide [facility] [place] 2023-04-03 00:00 magnesium hydroxide [facility] [place] 2023-04-04 00:00 magnesium hydroxide [facility] [place] 2023-04-05 00:00 magnesium hydroxide [facility] [place] 2023-04-06 00:00 magnesium hydroxide [facility] [place] 2023-04-07 00:00 magnesium hydroxide [facility] [place] Results/Labs test date facility value unit notes
--- NOTE | 2023-05-01 09:02 | ED Physician Documentation ---
PD HPI ALTERED MENTAL STATUS - Stated complaint Stated Complaint: AMS - Chief complaint Chief Complaint: Neuro - History obtained from History obtained from: Patient, Family, EMS - History of Present Illness Timing - onset: Today ( attempted to awaken the patient this morning and seemed confused and slow to rouse. Had done some heavier work yesterday and right shoulder hurting. Blood sugar was okay at 100. No reported injury/fall.) Timing - details: Abrupt onset, Now resolved Quality / character: Less responsive (for several minutes. No noted focal weakness.) Associated symptoms: Other (right shoulder pain on ROM.). No: Fever, Headache, Dyspnea Contributing factors: Diabetic. No: Anticoagulated (had been until a month ago when fell with small SAH. Treated conservatively and was improved/no worse on repeat imaging in hospital. Was admitted for possible sepsis.) Basline status: Alert and oriented X 3, Ambulatory Treatment ERGONOMIC SPECIALIST: Accucheck, Other (heart monitor) Recently seen: Emergency Dept (a month ago for infection/UTI with sepsis, and fall with SAH.) Review of Systems Constitutional: denies: Fever Nose: denies: Congestion Throat: denies: Sore throat Cardiac: denies: Chest pain / pressure, Palpitations, Pedal edema Respiratory: denies: Dyspnea, Cough GI: denies: Abdominal Pain, Vomiting, Diarrhea Neurologic: denies: Focal weakness, Headache PD PAST MEDICAL HISTORY - Past Medical History Past Medical History: Yes Cardiovascular: Hypertension, High cholesterol, LA, Atrial fibrillation Neuro: Dementia Endocrine/Autoimmune: Type 2 diabetes : Benign prostate hypertrophy Musculoskeletal: Osteoarthritis - Past Surgical History Past Surgical History: Yes Ortho: Hip replacement, Knee replacement - Present Medications Home Medications: Ambulatory Orders Medication Instructions Recorded Confirmed Isosorbide Mononitrate [Isosorbide 60 mg PO DAILY 06/05/22 05/01/23 Mononitrate ER] Losartan Potassium [Cozaar] 100 mg PO DAILY 06/05/22 05/01/23 Acetaminophen [Tylenol] 650 mg PO Q4HR PRN tab 04/07/23 05/01/23 Albuterol 2.5 mg INH Q4HR PRN ml 04/07/23 05/01/23 Empagliflozin [Jardiance] 25 mg PO DAILY #0 04/07/23 05/01/23 Finasteride [Proscar] 5 mg PO DAILY #0 04/07/23 05/01/23 Furosemide [Lasix] 40 mg PO DAILY #0 04/07/23 05/01/23 Losartan [Cozaar] 100 mg PO DAILY tab 04/07/23 05/01/23 Metoprolol Tartrate [Lopressor] 50 mg PO BID #1 tab 04/07/23 05/01/23 Multivitamin W/Minerals [Theragran 1 tab PO DAILYWM tab 04/07/23 05/01/23 M] Rosuvastatin Calcium [Crestor] 40 mg PO QPM #0 04/07/23 05/01/23 Tamsulosin [Flomax] 0.4 mg PO BID #0 04/07/23 05/01/23 glipiZIDE [Glipizide ER] 20 mg PO DAILY #0 04/07/23 05/01/23 Ferrous Gluconate [Fergon] 324 mg PO DAILY 30 Days #30 tablet 05/01/23 - Allergies Allergies/Adverse Reactions: Allergies Allergy/AdvReac Type Severity Reaction Status Date / Time No Known Drug Allergies Allergy Verified 05/01/23 08:44 - Social History Does the pt smoke?: No Smoking Status: Never smoker Does the pt drink ETOH?: No Does the pt have substance abuse?: No - Immunizations Immunizations are current?: Yes - POLST Patient has POLST: No PD ED PE NORMAL - Vitals Vital signs reviewed: Yes - General General: Alert and oriented X 3, No acute distress, Well developed/nourished - HEENT HEENT: Atraumatic - Neck Neck: Supple, no meningeal sign, No bony TTP, No adenopathy - Cardiac Cardiac: No: RRR (irrregular but rate controlled) - Respiratory Respiratory: No respiratory distress, Clear bilaterally - Abdomen Abdomen: Soft, Non tender - Derm Derm: Normal color, Warm and dry - Extremities Extremities: No edema, No calf tenderness / cord, Other (right shoulder tender along lateral and posterior area. No noted deformity. Slow ROM and hurts to go above 90 degrees. ) - Neuro Neuro: Alert and oriented X 3, No motor deficit, Normal speech Results - Vitals Vitals: Vital Signs - 24 hr 05/01/23 05/01/23 05/01/23 08:38 10:52 12:00 Temperature 36.2 C L Heart Rate 54 L 61 61 Respiratory 10 L 19 10 L Rate Blood Pressure 176/71 H 185/69 H 188/75 H O2 Saturation 100 100 97 Oxygen O2 Source Room air - EKG (time done) 08:49 EKG releavant findings:: EKG personally interpreted by author of this note. Relevant findings are: Rate: Rate (enter#) (59) Rhythm: NSR Collins: Normal Intervals: Normal OR, LBBB Ischemia: Normal ST segments, Non specific changes. No: ST depression - Labs Labs: Laboratory Tests 05/01/23 05/01/23 05/01/23 08:53 08:53 08:53 WBC 5.0 RBC 4.08 L Hgb 9.4 L Hct 31.5 L MCV 77.2 L MCH 23.0 L MCHC 29.8 L RDW 17.3 H Plt Count 164 MPV 10.5 Neut # (Auto) 3.0 Lymph # (Auto) 1.3 L Dupage # (Auto) 0.6 Eos # (Auto) 0.0 Baso # (Auto) 0.0 Absolute Nucleated RBC 0.00 Nucleated RBC % 0.0 Sodium 141 Potassium 3.3 L Chloride 105 Carbon Dioxide 24 Anion Gap 12.0 BUN 35 H Creatinine 1.4 H Estimated GFR (MDRD) 48 L Glucose 95 POC Whole Bld Glucose Calcium 9.9 Magnesium 2.0 Total Bilirubin 0.4 AST 22 ALT 24 Alkaline Phosphatase 119 Troponin I High Sens 13.0 Total Protein 7.7 Albumin 3.8 Globulin 3.9 Albumin/Globulin Ratio 1.0 Lipase 54 H 05/01/23 09:02 WBC RBC Hgb Hct MCV MCH MCHC RDW Plt Count MPV Neut # (Auto) Lymph # (Auto) Dupage # (Auto) Eos # (Auto) Baso # (Auto) Absolute Nucleated RBC Nucleated RBC % Sodium Potassium Chloride Carbon Dioxide Anion Gap BUN Creatinine Estimated GFR (MDRD) Glucose POC Whole Bld Glucose 90 Calcium Magnesium Total Bilirubin AST ALT Alkaline Phosphatase Troponin I High Sens Total Protein Albumin Globulin Albumin/Globulin Ratio Lipase - Rads (name of study) head CT Relevant Findings:: Prelim report reviewed, EMP independent interpretation of test (no acute changes. no ICH.) chest xray Relevant Findings:: Prelim report reviewed, EMP independent interpretation of test (clear without signs of CHF/infiltrate) right shoulder xray Relevant Findings:: Prelim report reviewed, EMP independent interpretation of test (some arthritic changes. No fractures nor dislocation. ) PD Medical Decision Making - ED course Complexity details: reviewed results (anemic 9.4 hgb but similar to prior. Looks likely iron deficiency. K 3.3, Creatinine 1.4 which is at baseline. ), considered differential, d/w patient, d/w family ( who describes pt slow to respond from sleep this morning. Alert to normal now. ) ED course: Unclear the cause of him slow to awaken this morning. He appears okay at this time. is okay bringing him home. Departure - Departure Disposition: Home, Self Care Clinical Impression: Anemia Altered mental state Qualifiers: Altered mental status type: unspecified Qualified Code(s): R41.82 - Altered mental status, unspecified Condition: Stable Record reviewed to determine appropriate education?: Yes Instructions: ED Altered Loc Prescriptions: Ferrous Gluconate [Fergon] 324 mg PO DAILY 30 Days #30 tablet Comments: Your test here appear normal with a normal head CT (chronic changes noted but no acute problems), normal chest x-ray. Your shoulder x-rays showed some arthritic changes but no fractures. Consider using some Tylenol 500 mg 4 times daily to help with the shoulder pain. Your blood test show anemia similar to what it has been. Consider adding a iron supplement. Otherwise your white count is normal and your blood pressure and heart rhythm are normal. No signs of electrolyte problems on your blood test. Blood sugar was okay. At this point I do not have a reason for your altered mentation earlier. Regular hydration and medications. Follow-up with your primary care if recurring episodes or problems. Follow-up with your primary care regarding neurology referrals to assess for the dementia. Return to the ER as needed. I sent a prescription for the iron to your preferred pharmacy. Forms: PCP List Discharge Date/Time: 05/01/23 13:02
[2023-05-01 09:05] LABS: BASOPHILS % (AUTO) 0.2 %; EOSINOPHILS % (AUTO) 0.6 %; HCT - HEMATOCRIT 31.5 % (42.0-52.0); HGB - HEMOGLOBIN 9.4 g/dL (14.0-18.0); LYMPHOCYTES # (AUTO) 1.3 10^3/uL (1.5-3.5); LYMPHOCYTES % (AUTO) 25.4 %; MEAN CORPUSCULAR HGB CONC 29.8 g/dL (32.0-36.0); MEAN CORPUSCULAR VOLUME 77.2 fL (80.0-94.0); MEAN PLATELET VOLUME 10.5 fL (7.4-11.4); MONOCYTES # (AUTO) 0.6 10^3/uL (0.0-1.0); MONOCYTES % (AUTO) 12.5 %; NEUTROPHILS % (AUTO) 60.3 %; PLT - PLATELET COUNT 164 10^3/uL (130-450); RED BLOOD COUNT 4.08 10^6/uL (4.70-6.10); RED CELL DISTRIBUTION WIDTH 17.3 % (12.0-15.0)
[2023-05-01 09:14] LABS: ALBUMIN 3.8 g/dL (3.2-5.5); BILIRUBIN,TOTAL 0.4 mg/dL (0.2-1.0); CALCIUM 9.9 mg/dL (8.5-10.3); CREATININE 1.4 mg/dL (0.6-1.2); POTASSIUM 3.3 mmol/L (3.5-5.0); TOTAL PROTEIN 7.7 g/dL (6.7-8.2)
--- NOTE | 2023-05-01 10:09 | XRAY Report ---
PROCEDURE: Chest 1 View X-Ray INDICATIONS: chest/right shoulder pain today TECHNIQUE: One view of the chest was acquired. COMPARISON: Chest x-ray 04/03/2023. FINDINGS: Surgical changes and devices: None. Lungs and pleura: No pleural effusions or pneumothorax. Lungs are clear. Mediastinum: Mediastinal contours appear normal. Heart size is normal. Bones and chest wall: No suspicious bony lesions. Overlying soft tissues appear unremarkable. IMPRESSION: No acute cardiopulmonary process. Reviewed by: Erin Leslie MD on 05/01/2023 10:08 AM PDT Approved by: Erin Leslie MD on 05/01/2023 10:08 AM PDT Station ID: [id number]
--- NOTE | 2023-05-01 10:10 | XRAY Report ---
PROCEDURE: Shoulder 3 View RT INDICATIONS: shoulder pain with movement TECHNIQUE: 3 views of the shoulder were acquired. COMPARISON: None. FINDINGS: Bones: No fractures or dislocations. No suspicious bony lesions. Visualized ribs appear intact. Severe acromioclavicular and mild to moderate medial humeral degenerative narrowing. Soft tissues: No suspicious soft tissue calcifications. 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 Reviewed by: Erin Leslie MD on 05/01/2023 10:09 AM PDT Approved by: Erin Leslie MD on 05/01/2023 10:09 AM PDT Station ID: [id number]
[2023-05-01 12:21] VITALS: BP 188/75
--- NOTE | 2023-05-01 12:23 | CT Report ---
PROCEDURE: HEAD WO INDICATIONS: confused/altered this AM. prior SAH month ago TECHNIQUE: Noncontrast 4.5 mm thick angled axial sections acquired from the foramen magnum to the vertex. For r adiation dose reduction, the following was used: automated exposure control, adjustment of mA and/or kV according to patient size. COMPARISON: CT head 04/03/2023 FINDINGS: Image quality: Excellent. The ventricular system and cortical sulci demonstrate atrophy, consistent for patient's stated age. There are areas of hypodensity in the periventricular and subcortical white matter. There is no acut e intra or extra-axial fluid collection. No acute hemorrhage, mass lesion or midline shift. Brainst em is unremarkable. Globes are symmetrical. Sinuses are aerated. Osseous structures are intact. IMPRESSION: 1. No acute intracranial process. 2. 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 Reviewed by: Erin Leslie MD on 05/01/2023 12:21 PM PDT Approved by: Erin Leslie MD on 05/01/2023 12:21 PM PDT Station ID: [id number]
== END 2023-05-01 13:02 | disposition home or self-care (01) ==
LOC: EDUNIT# → ED 08:31
DX: D64.9 Anemia, unspecified (principal); R41.82 Altered mental status, unspecified
CPT/HCPCS: 36415; 80053; 83690; 83735; 84484; 85025; 93005; 99283; 99284

== ENCOUNTER 2023-05-12 23:33 | Outpatient (CLI) | payer MEDICARE, OTHER | END 2023-05-12 23:34 | disposition EMS.NT | LOC: EMS 23:33 | DX: Z03.89 Encounter for observation for other suspected diseases and conditions ruled out (principal) ==

== ENCOUNTER 2023-05-13 07:52 | Outpatient (CLI) | payer MEDICARE, OTHER | END 2023-05-13 07:53 | disposition EMS.NT | LOC: EMS 07:52 | DX: R53.1 Weakness (principal) ==

== ENCOUNTER 2023-05-16 08:00 | Outpatient (CLI) | payer MEDICARE, OTHER ==
[2023-05-16 14:30] LABS: BILIRUBIN,URINE NEGATIVE (NEGATIVE); GLUCOSE, URINE (UA) 500 mg/dL (NEGATIVE); KETONES,URINE (UA) NEGATIVE (NEGATIVE); LEUKOCYTE ESTERASE, URINE SMALL (NEGATIVE); NITRITE,URINE NEGATIVE (NEGATIVE); OCCULT BLOOD,URINE TRACE-INTA (NEGATIVE); PH,URINE 5.5 PH (5.0-7.5); PROTEIN,URINE 30 mg/dL (NEGATIVE); UROBILINOGEN,URINE 0.2 (NORMAL) E.U./dL (NORMAL)
[2023-05-16 14:37] LABS: BACTERIA,URINE Few /HPF (None Seen); CLARITY,URINE SL. CLOUDY (CLEAR); MUCUS,URINE Few Strands; RBC,URINE 0-5 /HPF (0-5); SQUAMOUS EPITHELIAL CELL,UR FEW Squamous (<= Few); YEAST,URINE PRESENT
== END 2023-05-16 23:59 | disposition home or self-care (01) ==
LOC: LAB.S 08:00
PROVIDERS: ATTEND Internal Medicine
DX: R39.9 Unspecified symptoms and signs involving the genitourinary system (principal)
CPT/HCPCS: 81001; 87086

== ENCOUNTER 2023-05-30 14:46 | Outpatient (CLI) | payer MEDICARE, OTHER | END 2023-05-30 23:59 | disposition EMS.NT | LOC: EMS 14:46 | DX: Z03.89 Encounter for observation for other suspected diseases and conditions ruled out (principal) ==

== ENCOUNTER 2023-06-04 08:00 | Outpatient (CLI) | payer MEDICARE, OTHER | END 2023-06-04 23:59 | disposition home or self-care (01) | LOC: LAB 08:00 | PROVIDERS: ATTEND Urology | DX: N40.1 Benign prostatic hyperplasia with lower urinary tract symptoms (principal) | CPT/HCPCS: 87086 ==

== ENCOUNTER 2023-06-13 20:48 | Outpatient (CLI) | payer MEDICARE, OTHER | END 2023-06-13 23:59 | disposition short-term general hospital (02) | LOC: EMS 20:48 | DX: S09.90XA Unspecified injury of head, initial encounter (principal); R53.83 Other fatigue; R41.0 Disorientation, unspecified; W01.0XXA Fall on same level from slipping, tripping and stumbling without subsequent striking against object, initial encounter; Y92.009 Unspecified place in unspecified non-institutional (private) residence as the place of occurrence of the external cause | CPT/HCPCS: A0425; A0429 ==